=== PATIENT | male | born 1980 | race Caucasian/White ===

== ENCOUNTER → 2018-07-31 | Outpatient (CLI) | payer OTHER ==
--- NOTE | 2018-07-31 17:31 | MR ---
EXAMINATION TYPE: MR brain/lspine wo con DATE OF EXAM: 07/31/2018 COMPARISON: None HISTORY: Numbness CONTRAST: Performed utilizing 0 mL intravenous Gadavist gadolinium contrast. TECHNIQUE: Multiplanar, multiecho imaging on a 3.0 Maddie magnet is performed through the brain. Stud y is performed within 24 hours of arrival to the hospital. The craniovertebral junction is normal. The pituitary is normal. Diffusion-weighted imaging is performed. No abnormal hyperintensity is present to suggest an acute i ntracranial infarct or acute ischemic change. There is a lacunar infarct or Virchow-Dandy space within the inferior right basal ganglion. Ventricles and sulci are slightly prominent for the patient age. There is some mucosal thickening within ethmoid air cells. Some mucosal thickening is within the righ t maxillary sinus. IMPRESSIONS: 1. Mild age-related atrophy EXAMINATION TYPE: MR brain/lspine wo con DATE OF EXAM: 07/31/2018 COMPARISON: 09/29/2016 HISTORY: Numbness, lumbago CONTRAST: 0 mL intravenous Gadavist. TECHNIQUE: Multiplanar, multisequence images of the lumbar spine were acquired. FINDINGS: Cord terminates at the T12-L1 level. L5-S1: Endplate changes are present at S1. This is slightly hyperintense on T2-weighted images sugges tive for Modic type I degenerative change. Disc height is preserved. Mild broad-based left paracentra l disc bulge is present with contact with the exiting nerve root. Correlate with left S1 radicular sy mptoms. L4-L5: No significant disc bulge or disc herniation. No spinal canal stenosis. No foraminal stenosi s. . L3-L4: No significant disc bulge or disc herniation. No spinal canal stenosis. No foraminal stenosi s. Modic type I mild narrowing of disc height may be present. Endplate changes are present. L2-L3: No significant disc bulge or disc herniation. No spinal canal stenosis. No foraminal stenosi s. . L1-L2: No significant disc bulge or disc herniation. No spinal canal stenosis. No foraminal stenosi s. . T12-L1: No significant disc bulge or disc herniation. No spinal canal stenosis. No foraminal stenos is. . IMPRESSION: 1. Chronic endplate changes within the lumbar spine discussed above. 2. Left paracentral disc bulge L5-S1 correlate with left exiting S1 nerve root impingement. Right S1 impingement is not identified at this time.
== END | disposition home or self-care (01) ==
LOC: RADMRIMAIN 14:44
PROVIDERS: ATTEND Psychiatry & Neurology Neurology
DX: M51.27 Other intervertebral disc displacement, lumbosacral region (principal); M47.816 Spondylosis without myelopathy or radiculopathy, lumbar region; G31.1 Senile degeneration of brain, not elsewhere classified; G25.0 Essential tremor
CPT/HCPCS: 70551; 72148

== ENCOUNTER → 2018-12-09 | Outpatient (CLI) | payer OTHER ==
[2018-12-06 14:28] VITALS: BMI 20.7
[2018-12-09 13:04] VITALS: BP 129/84; PULSE 86; RESP 18
--- NOTE | 2018-12-09 13:38 | P.PAINCN ---
History of Present Illness - Reason for Consult Consult date: 12/09/18 - History of Present Illness This is a 38 years off male with a chronic history of severe low back pain, he reported that the pain started more than 10 years ago, and in increased in intensity over time, the pain is constant and increased with any activity, and also patient has some numbness and tingling sensation in his feet, is being treated in the past with [place] and gabapentin, patient reporte that he continue to have pain, he never done any physical therapy or interventional pain management, he denies any fever or night sweats he denies any change in the bowel movement or urination, and he reported that the pain is interfering with his quality of life. Then intensity of the pain 6/10 increased to 10 over 10 with activity Past Medical History Past Medical History: Chest Pain / Angina, Hyperlipidemia, Hypertension Additional Past Medical History / Comment(s): "high liver enzymes",lower back pain, degenerative disk disease,herniated disk, History of Any Multi-Drug Resistant Organisms: None Reported Past Surgical History: Orthopedic Surgery Additional Past Surgical History / Comment(s): rt hand surgery, oral surgery Past Anesthesia/Blood Transfusion Reactions: No Reported Reaction Past Psychological History: Anxiety Smoking Status: Current every day smoker Past Alcohol Use History: Daily Additional Past Alcohol Use History / Comment(s): smokes 1 PPD, started smoking age 19 Past Drug Use History: Marijuana Additional Drug Use History / Comment(s): alcohol abuse - Past Family History Father Family Medical History: Cancer Medications and Allergies Home Medications Medication Instructions Recorded Confirmed Type Atorvastatin Calcium [Lipitor] 10 mg PO DAILY 12/06/18 12/09/18 History Hydrocodone/Acetaminophen [[place] 1 tab PO Q6H PRN 12/06/18 12/09/18 History 10-325] LORazepam [Ativan] 0.5 - 1 mg PO DAILY PRN 12/06/18 12/09/18 History Lisinopril [Zestril] 10 mg PO DAILY 12/06/18 12/09/18 History Multivitamins, Thera [Multivitamin 1 tab PO DAILY 12/06/18 12/09/18 History (formulary)] amLODIPine [Norvasc] 10 mg PO DAILY 12/06/18 12/09/18 History Allergies Allergy/AdvReac Type Severity Reaction Status Date / Time Penicillins Allergy Unknown Verified 12/09/18 12:43 Childhood Physical Exam Vitals: Vital Signs Pulse Resp BP Pulse Ox 12/09/18 12:45 86 18 129/84 97 Intake and Output 12/08/18 12/09/18 12/09/18 22:59 06:59 14:59 Other: Weight 117.934 kg Social history : smoker , ++ ETOH , NO Illegal drugs use . Review of Systems : 1- Constitutional : no chills , no fever , no night sweats , 2- Ears : no ear discharge , no change in hearing 3-Nose, Mouth ,Throat ; no bleeding gums, no sore throat , no epistaxis , 4-Cardiovascular : Denies chest pain, , no orthopnea , no palpitation 5-Respiratory : Denies cough , no dyspnea , no hemoptysis 6-Gastrointestinal :, no change in bowel habits , no coffee- ground emesis . 7-Genitourinary : No hematuria , no discharge , no incontinence, 8-Musculoskeletal : No gait dysfunction , report low back pain , and lower extremity numbness , 9- Neurological : no ataxia , no tremor , no sezure , 10-Psychatric , no suicidal ideation no hallucination 11- Endocrine : no cold intolerence , no polyuria , no polydypsia , 12-Hematologic : no easy bleeding , no easy brusing , 13-Allergic / immunology : no angioedema , no wheezing ,no allergic rhinitis 14-Integumentary : no brttle nails , no change hair / nails , no foot/leg ulcers . Physical Examinations : 1-Constitutional : Cooperative , not in acute distress . 2-HEENT : nech ; supple , no Lymphadenopathy , no Thyromegaly , :eyes , no icterus, no photophobia . ENT : , normal oropharynx , no Thrush 3- Respiratory : Chest clear to auscultations Bilaterally , no wheezing . 4- Cardiovascular : regular rate and rhythem , S1 , S2 , no S3 , no S4. 5- Gastrointestinal: abdomen soft no tenderness , no organomegally . 6- Genitourinary : Defferred . 7-Integumentary : No cellulitis , no ulcers , normal skin turgor , no cyanotic . 8- neurologic : Cranial nerve II to XII intact , no focal neurological deffecit 9-psychatric : alert , oriented X 3 , appropriate affect , intact judgment and insight . 10-Lymphatic : no Lymphadenopathy. 11- musculoskeltal: normal gait Lumber spine moter stegnth lower extremities ,thigh and legs 5/5 Right side , 5/5 Left side deep tendon reflexes : normal Knee Jerk , normal ankle Jerk positive lumber facet Loading Test Range of motion of the lumbar spine Flexion 30 degrees, extension 10 degrees strait leg raising test , positive at 30 degree Fabere test positive RT and positive LT . Severe tenderness over the sacroiliac joint on the right side, and on the left side Gaenslen test= positive bilaterally Seated flexion test= positive bilaterally Results Comments: MRI of the lumbar spine done 2016 at the [facility]= L5-S1 lumbar degenerative disc disease and L4 5 lumbar degenerative disc disease Assessment and Plan Plan: Assessment and plan= 1-low back pain secondary to lumbar herniated disc disease. 2-clinical findings of lumbar spondylosis with lumbar facet arthropathy. Patient could benefit from lumbar epidural steroid injection at the L5-S1 level, into the procedure twice, if patient continued to have Pain after lumbar epidural steroid injection and we will order MRI of the lumbar spine, Patient should continue to use his pain medication, is getting prescription refills from his primary care We'll order CBC and PT/INR before the procedure because patient and the history of ETOH use Time with Patient: Greater than 30 PQRS Measure Charge Sheet Measure #130: Documentation of Current Meds in Medical Chart: Patient's medications documented in chart Measure #226: Tobacco Use: Screen & Cessation Intervention: Pt screened for tobacco use AND intervention given Measure #111: Pneumonia Vaccination: Pneumococcal vaccine NOT administered or previously given Measure #47: Advance Care Plan: Advance care planning discussed & documented, pt chose/unable to give Measure #412: Opioid Treatment Agreement: No documentation of signed opioid treatment agreement Measure #408: Opioid Therapy Follow-up Evaluation: Patient had NO f/u eval minimum every 3 months during opioid therapy Measure #317: Preventitive Care & Scrn High Bld Press & F/U: Normal blood pressure, f/u not required Measure #128: Body Mass Index (BMI) Screening & Follow-up: BMI documented ABOVE normal parameters - f/u documented Measure #131: Pain Assessment & Follow-up: Pain positive & plan documented, Follow-up scheduled Measure #431: Unhealthy Alcohol Use Preventative Care & Scrn: Patient identified as unhealthy alcohol user; counseling given PQRS Narrative: Smoking Status Current every day smoker Do You Want the Pneumonia No Vaccine AT THIS TIME? Blood Pressure 129/84 Pain Intensity [Lower Back] 7 Hx Alcohol Use (MH) Yes Home Medications: Ambulatory Orders Atorvastatin Calcium [Lipitor] 10 mg PO DAILY 12/06/18 Hydrocodone/Acetaminophen [[place] 10-325] 1 tab PO Q6H PRN 12/06/18 LORazepam [Ativan] 0.5 - 1 mg PO DAILY PRN 12/06/18 Lisinopril [Zestril] 10 mg PO DAILY 12/06/18 Multivitamins, Thera [Multivitamin (formulary)] 1 tab PO DAILY 12/06/18 amLODIPine [Norvasc] 10 mg PO DAILY 12/06/18
== END | disposition home or self-care (01) ==
LOC: PNWHC3 12:28
PROVIDERS: ATTEND Specialist
DX: G89.29 Other chronic pain (principal); M51.26 Other intervertebral disc displacement, lumbar region; M47.816 Spondylosis without myelopathy or radiculopathy, lumbar region; M46.96 Unspecified inflammatory spondylopathy, lumbar region; E78.5 Hyperlipidemia, unspecified; I10 Essential (primary) hypertension; F17.210 Nicotine dependence, cigarettes, uncomplicated; Z79.899 Other long term (current) drug therapy
CPT/HCPCS: 99211

== ENCOUNTER → 2019-11-10 | Outpatient (CLI) | payer OTHER ==
--- NOTE | 2019-11-10 10:19 | US ---
LOWER EXTREMITY VENOUS INSUFFICIENCY CLINICAL HISTORY: I87.2 Venous insufficiency (chronic) (peripheral). SIDE PERFORMED: Bilateral 1) Color flow is present and patency is documented in the following vessels. No DVT or SVT is noted . EIV Common Femoral Vein Deep Femoral Vein Femoral Vein Popliteal Vein Proximal Calf Veins Greater Saph Vein Upper Small Saph Vein 2) There is venous reflux noted at the following venous levels: Right: GSV CFV junction Left: EIV, CFV IMPRESSION: No sonographic evidence of deep venous thrombosis nor superficial venous thrombosis of th e bilateral lower extremities. Bilateral venous reflux as detailed above.
== END | disposition home or self-care (01) ==
LOC: MERGE 08:59 → RADUSWWP 08:59 → EDSEX 09:00
PROVIDERS: ATTEND Family Medicine
DX: I87.8 Other specified disorders of veins (principal); I87.2 Venous insufficiency (chronic) (peripheral); Z88.5 Allergy status to narcotic agent
CPT/HCPCS: 93970

== ENCOUNTER → 2019-11-11 | Outpatient (CLI) | payer OTHER ==
--- NOTE | 2019-11-11 18:57 | MR ---
EXAMINATION TYPE: MR lumbar spine wo con DATE OF EXAM: 11/11/2019 COMPARISON: MRI lumbar spine September 29, 2016 HISTORY: LBP, BLE radic TECHNIQUE: Multiplanar, multisequence imaging of the lumbar spine is performed without IV contrast. FINDINGS: Sagittal images of the lumbar spine show vertebral body heights and alignment to remain sat isfactory. Multilevel disc desiccation is identified L2-L3 through the L5-S1 levels. Moderate disc sp jumana narrowing L3-L4 level with anterior spurring and heterogeneous bony uptake to endplate changes ag ain seen. Mild disc space narrowing at additional lumbar levels. Findings new at L2-L3 level from carlos or MRI. The conus medullaris remains stable in position and signal ending inferior T12 level. Additio nal mild multilevel anterior spurring is noted. Axial images show at T12-L1 and L1-L2 levels to remain within normal limits. Axial images at L2-L3 level show new mild to moderate broad disc bulge mildly effacing the anterior t hecal sac and causing mild bilaterally anterior inferior neural foraminal narrowing. Axial images at L3-L4 level shows moderate broad disc bulge with right paracentral disc protrusion co mponent effacing anterior thecal sac and mild facet degenerative changes bilaterally. There is mild r ight-sided anterior inferior neural foraminal narrowing. There is new 5 mm right Tarlov cyst axial im age 14 causing some mass effect posterolateral aspect spinal canal. Axial images at L4-L5 level mild facet degenerative changes bilaterally with mild broad disc bulge mi nimally effacing anterior thecal sac. There is mild bilateral inferior neural foraminal narrowing. No significant change from prior. Axial images at L5-S1 level show moderate broad disc bulge and mild facet degenerative changes bilate rally. There is left lateral disc protrusion component with asymmetric mild left-sided inferior neura l foraminal narrowing redemonstrated. Right-sided neural foramen is patent. Mass effect on central S1 nerves not identified on this or prior study. No suspicious incidental retroperitoneal findings. IMPRESSION: Multilevel degenerative changes in the mid to lower lumbar spine as detailed above with s ome progression L3-L4 level and new findings noted L2-L3 level.
== END | disposition home or self-care (01) ==
LOC: EDSEX → MERGE 16:15 → RADMRIMAIN 16:19
PROVIDERS: ATTEND Psychiatry & Neurology Neurology
DX: M47.816 Spondylosis without myelopathy or radiculopathy, lumbar region (principal); Z88.0 Allergy status to penicillin
CPT/HCPCS: 72148

== ENCOUNTER 2020-04-28 13:13 | Emergency (ER) | payer OTHER ==
[2020-04-28 14:11] VITALS: RESP 18; TEMP 97.7
[2020-04-28] MEDS ORDERED: HYDROcodone/APAP 5-325MG 1 EACH TAB PO STA (14:51)
--- NOTE | 2020-04-28 15:26 | ED ---
General Adult HPI - General Chief complaint: Extremity Injury, Upper Stated complaint: rt arm injury Time Seen by Provider: 04/28/20 14:26 Source: patient, RN notes reviewed, old records reviewed Mode of arrival: ambulatory Limitations: no limitations - History of Present Illness Initial comments: 39-year-old male patient presents ED for chief complaint of right hand and wrist pain. Patient was the last night he was walking up the stairs when he tripped and fell forward with a fall on outstretched arm. Patient process since then he has been complaining of pain on the radial aspect of the distal wrist and the mid palm the hand. He denies any trauma to his head or his neck. He denies any other complaints at this time. Systemic: Pt denies fatigue, fever/chills, rash. Pt denies weakness, night sweats, weight loss. Neuro: Pt denies headache, visual disturbances, syncope or pre-syncope. HEENT: Pt denies ocular discharge or irritation, otalgia, rhinorrhea, pharyngitis or notable lymphadenopathy. Cardiopulmonary: Pt denies chest pain, SOB, heart palpitations, dyspnea on exertion. Abdominal/GI: Pt denies abdominal pain, n/v/d. : Pt denies dysuria, burning w/ urination, frequency/urgency. Denies new onset urinary or bowel incontinence. Neuro: Pt denies new onset weakness, paresthesias. - Related Data Home Medications Medication Instructions Recorded Confirmed Atorvastatin Calcium [Lipitor] 10 mg PO DAILY 12/06/18 04/28/20 Hydrocodone/Acetaminophen [[place] 1 tab PO TID PRN 12/06/18 04/28/20 10-325] Multivitamins, Thera [Multivitamin 1 tab PO DAILY 12/06/18 04/28/20 (formulary)] Gabapentin [Neurontin] 300 mg PO TID 04/28/20 04/28/20 Hydrochlorothiazide 25 mg PO DAILY 04/28/20 04/28/20 Lisinopril 20 mg PO DAILY 04/28/20 04/28/20 amLODIPine [Norvasc] 5 mg PO DAILY 04/28/20 04/28/20 Allergies Allergy/AdvReac Type Severity Reaction Status Date / Time Penicillins Allergy Unknown Verified 04/28/20 14:12 Childhood Review of Systems ROS Statement: Those systems with pertinent positive or pertinent negative responses have been documented in the HPI. ROS Other: All systems not noted in ROS Statement are negative. Past Medical History Past Medical History: Chest Pain / Angina, Hyperlipidemia, Hypertension Additional Past Medical History / Comment(s): "high liver enzymes",lower back pain, degenerative disk disease,herniated disk, History of Any Multi-Drug Resistant Organisms: None Reported Past Surgical History: Orthopedic Surgery Additional Past Surgical History / Comment(s): rt hand surgery, oral surgery Past Anesthesia/Blood Transfusion Reactions: No Reported Reaction Past Psychological History: Anxiety Smoking Status: Current every day smoker Past Alcohol Use History: Daily Past Drug Use History: Marijuana - Past Family History Father Family Medical History: Cancer General Exam - General Exam Comments Initial Comments: Constitutional: NAD, AOX3, Pt has pleasant affect. HEENT: NC/AT, trachea midline, neck supple, no lymphadenopathy. Posterior pharynx non erythematous, without exudates. External ears appear normal, without discharge. Mucous membranes moist. Eyes PERRLA, EOM intact. There is no scleral icterus. No pallor noted. Cardiopulmonary: RRR, no murmurs, rubs or gallops, no JVD noted. Lungs CTAB in anterior and posterior bush. No peripheral edema. Abdominal exam: Abdomen soft and non-distended. Abdomen non-tender to palpation in all 4 quadrants. Bowel sounds active in LLQ. No hepatosplenomegaly. No ecchymosis Neuro: CN II-XII grossly intact. No nuchal rigidity. No raccon eyes, no mcihele sign, no hemotympanum. No cervical spinal tenderness. MSK: Distal right wrist mildly tender to palpation. Snuffbox tenderness is present. Mild amount of tenderness to the middle of the palm as well. Neurovascularly intact. No external skin changes. Her motion is intact of hand. Sensation intact. Limitations: no limitations Course Vital Signs 04/28/20 14:09 Temperature 97.7 F Pulse Rate 77 Respiratory 18 Rate Blood Pressure 139/86 O2 Sat by Pulse 97 Oximetry Medical Decision Making - Medical Decision Making 39-year-old male patient with a chief complaint of right wrist sprain after fall on outstretched arm yesterday. Complaining of pain in the distal wrist region as well as the hand. Patient vital signs are stable, afebrile. Physical exam doesn't display tenderness to the distal radius region snuffbox region palm region. Plain films are negative for acute process. Patient neurovascularly intact. Patient placed in thumb spica splint will be discharged palpation orthopedic follow-up. Neurovascular intact after splint placement. Case discus sed with Dr. Burnham. Disposition Clinical Impression: Wrist sprain Disposition: HOME SELF-CARE Condition: Stable Instructions (If sedation given, give patient instructions): Wrist Sprain (ED) Additional Instructions: Follow-up with primary care provider and orthopedic consult tomorrow. Continue to wear splint. Return to ER if condition worsens in any way. Is patient prescribed a controlled substance at d/c from ED?: No Referrals: Angel Jaimes Jr, DO [Primary Care Provider] - 1-2 days Tate Martel MD [STAFF PHYSICIAN] - 1-2 days
--- NOTE | 2020-04-28 15:46 | XR ---
EXAMINATION TYPE: XR wrist complete RT, XR hand complete RT DATE OF EXAM: 04/28/2020 CLINICAL HISTORY: pain TECHNIQUE: Frontal, lateral and oblique images of the right wrist are obtained. COMPARISON: None. FINDINGS: There is no acute fracture/dislocation evident. The joint spaces appear within normal limits. The o verlying soft tissue appears unremarkable. IMPRESSION: There is no acute fracture or dislocation seen. ICD 10 NO FRACTURE, INITIAL EVALUATION EXAMINATION TYPE: XR wrist complete RT, XR hand complete RT DATE OF EXAM: 04/28/2020 CLINICAL HISTORY: pain TECHNIQUE: Frontal, lateral and oblique images of the right hand are obtained. COMPARISON: None. FINDINGS: There is no acute fracture/dislocation evident. The joint spaces appear within normal limi ts. The overlying soft tissue appears unremarkable. IMPRESSION: There is no acute fracture or dislocation ICD 10 NO FRACTURE, INITIAL EVALUATION
[2020-04-28] MEDS ORDERED: ACET/COD 300 MG/30 MG STARTER PACK 6 TAB BTL PO STA (16:26)
--- NOTE | 2020-04-28 16:27 | ED ---
Disposition Clinical Impression: Wrist sprain Disposition: HOME SELF-CARE Condition: Stable Instructions (If sedation given, give patient instructions): Wrist Sprain (ED) Additional Instructions: Follow-up with primary care provider and orthopedic consult tomorrow. Continue to wear splint. Return to ER if condition worsens in any way. Is patient prescribed a controlled substance at d/c from ED?: No Referrals: Angel Jaimes Jr, DO [Primary Care Provider] - 1-2 days Tate Martel MD [STAFF PHYSICIAN] - 1-2 days Procedures - Orthopedic Splinting/Casting Injury #1 Side: right Upper Extremity Injury Location: short arm Upper Extremity Immobilizer: thumb spica
[2020-04-28 16:46] VITALS: BP 130/78; PULSE 70
== END 2020-04-28 16:45 | disposition home or self-care (01) ==
LOC: EC 13:13
DX: S63.501A Unspecified sprain of right wrist, initial encounter (principal); F17.200 Nicotine dependence, unspecified, uncomplicated; E78.5 Hyperlipidemia, unspecified; I10 Essential (primary) hypertension; I25.2 Old myocardial infarction; Z88.0 Allergy status to penicillin; Z79.899 Other long term (current) drug therapy; Z98.890 Other specified postprocedural states; W01.0XXA Fall on same level from slipping, tripping and stumbling without subsequent striking against object, initial encounter; Y93.01 Activity, walking, marching and hiking; Y92.89 Other specified places as the place of occurrence of the external cause
CPT/HCPCS: 29125; 99284

== ENCOUNTER → 2020-06-01 | Outpatient (CLI) | payer OTHER ==
--- NOTE | 2020-06-01 12:55 | US ---
EXAMINATION TYPE: US mass soft tissue chest/back DATE OF EXAM: 06/01/2020 COMPARISON: NONE CLINICAL HISTORY: R22.2 lump/mas Localized. Right upper chest palpable noted 3 weeks ago, but not pal pable now. US findings: at right chest wall 2:00 zone BC in reference to breast approximately 12 CFN a lymph nod e appearing mass is noted = 0.8 x 0.6 x 0.3cm. IMPRESSION: Soft tissue lesion at the site of clinical concern appears to reflect a lymph node. Relat e clinically.
== END ==
LOC: RADUSWWP 12:18
PROVIDERS: ATTEND Family Medicine
DX: R22.2 Localized swelling, mass and lump, trunk (principal); Z88.0 Allergy status to penicillin

== ENCOUNTER 2020-11-16 17:09 | Inpatient (IN) | payer MEDICAID, OTHER ==
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
[2020-11-16] MEDS ORDERED: MAGNESIUM HYDROXIDE 2,400 MG/10 ML CUP PO PRN (21:47)
[2020-11-16] MEDS ORDERED: MAG HYDROX/AL HYDROX/SIMETH 30 ML CUP PO PRN (21:47)
[2020-11-16] MEDS ORDERED: HALOPERIDOL LACTATE 5 MG/ML 1 ML VIAL IM PRN (21:49)
[2020-11-17] MEDS ORDERED: LORazepam 2 MG/ML INJ IM PRN (00:52)
[2020-11-17] MEDS: NICOTINE 14MG/24HR PATCH TRANSDERM SCH ×2 (01:32→11:54)
[2020-11-17] MEDS ORDERED: MELATONIN 3 MG TABLET PO PRN (11:34)
--- NOTE | 2020-11-17 11:45 | P.HP ---
Psychiatric H&P - . H&P Date: 11/17/20 History & Physical: Allergies Allergy/AdvReac Type Severity Reaction Status Date / Time Penicillins Allergy Unknown Verified 11/16/20 20:27 Childhood Vital Signs Temp 97.4 F L 11/16/20 22:47 Pulse 76 11/16/20 22:47 Resp 18 11/16/20 22:47 BP 148/90 11/16/20 22:47 Pulse Ox 98 11/16/20 21:40 Intake & Output 11/16/20 11/17/20 11/17/20 18:59 06:59 18:59 Weight 113.398 kg 104.326 kg Laboratory Last Values Coronavirus (PCR) Not Detected (Not Detectd) 11/16/20 20:46 11/17/20 11:35 IDENTIFYING DATA: Patient is a 40-year-old male who currently lives alone in a house has 1 son and collects Social Security disability. HPI: Patient presented to the hospital yesterday with complaints of paranoia as people were apparently following him as he believed. Patient reported that he uses methamphetamine regularly. As per ER report claims that patient apparently had taken and asked to his wall and owns guns at his home. Patient was fairly uncooperative and agitated last night and received IM Haldol and Ativan for his agitation. Patient was seen this morning and appeared to be disheveled in appearance of poor hygiene and grooming and appeared to be fairly sedated. He states that he is feeling upset that he is on the unit and was demanding discharge several times. He was fairly vague and uncooperative and irritable with com writer. He states that "I've been using a lot of drugs" and reported drinking alcohol approximately 1-2 beers a day and also using methamphetamine approximately a gram every other day. He states that he's been using methamph etamine for approximately 1 year now. He states that he was brought into the hospital by his mother for concerns about his paranoia and when describing about the acts in the wall he states that "I thought my phone was in there". He states that his mood is "alright" however has an incongruent affect and was fairly irritable. He denies any anxiety. He states that he has poor sleep. He has poor insight and judgment and is impulsive. Patient denies any suicidal or homicidal ideations intent or plan. At this time patient denies any auditory or visual hallucinations. Patient admits to using methamphetamine and alcohol as listed above. He admits to cigarette use daily. PAST PSYCHIATRIC HISTORY: Patient states that he has no psychiatric history. Patient denies being on any psychiatric medications. Patient denies any previous psychiatric hospitalizations. Patient denies any psychiatric outpatient follow- up. Patient denies any history of suicide attempts in the past. PMH: Angina, hyperlipidemia, hypertension and degenerative joint disease. ALLERGIES: as per EMR CHEMICAL DEPENDENCY HISTORY: as per HPI FAMILY PSYCHIATRIC/SUBSTANCE USE HISTORY: denies SOCIAL HISTORY: Patient was born and raised in [facility]. He states that he completed high school. He states that he lives alone in a house has 1 son and collects Social Security disability. 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 He states that he has been to intermediate once in 2009 for drinking and driving.. MENTAL STATUS EXAM: General Appearance: Patient appears to be overweight, stated age is alert, im pulsive and uncooperative. Patient appears to have poor hygiene and grooming. Disheveled appearance. Behavior: Patient is seated without any agitated behavior. Impulsive and uncooperative. Speech: Patient's speech is fluent and nonpressured. Loud at times Mood/Affect: Patient reports their mood is "okay", affect is incongruent and constricted. Suicidality/Homicidality: Patient denies having any homicidal ideation intent or plan. Denies any suicidal ideations intent or plan Perceptions: Patient denies any visual hallucinations and denies any auditory hallucinations Though content/process: Vague, guarded/evasive, poverty of content. Endorsing paranoia. Memory and concentration: AOX3, grossly intact for the purposes of this session. Can spell "WORLD" backwards Judgment and insight: poor/impulsive STRENGTHS/WEAKNESSES: strength is that patient is resilient. 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 Patient has signed adult voluntary form and medication consent and is placed in patient's chart. -Medications : Will start patient on Seroquel 50 mg daily at bedtime for mood stabilization/psychosis. Vistaril when necessary for anxiety. Melatonin when necessary for insomnia. -Ativan and Haldol PRN for agitation/aggression -CIWA protocol with Ativan PRN for ETOH withdrawal -Patient was counseled on substance abuse however he states that at this time "I can quit whenever I want to" and is not interested in rehab or any other treatment options for his substance use issues. -Patient was informed of the risks, benefits and side effects of the medication and patient verbally consented to taking the medications. Patient signed med consent form and was placed in chart. -Internal Medicine consult to perform medical evaluation and physical. -NRT - nicotine patch -SW on board for discharge planning. Encourage patient to participate in groups to work on coping skills. Patient claims that he is not interested in rehab at this time. Patient apparently does have access to guns in his home and these will need to be secured upon discharge.
[2020-11-17] MEDS: ATORVASTATIN 10 MG TAB PO SCH (11:54)
[2020-11-17] MEDS: LORazepam 1 MG TAB PO PRN (11:54)
[2020-11-17] MEDS: hydrOXYzine pamoate 25 MG CAP PO PRN (11:54)
[2020-11-17] MEDS: MULTIVITAMINS, THERA 1 EACH TAB PO SCH (11:54)
[2020-11-17] MEDS: amLODIPine 5 MG TAB PO SCH (11:54)
[2020-11-17] MEDS: GABAPENTIN 300 MG CAP PO PRN (11:54)
[2020-11-17] MEDS: ACETAMINOPHEN TAB 325 MG TAB PO PRN (11:54)
[2020-11-17] MEDS: hydroCHLOROthiazide 25 MG TAB PO SCH (11:54)
[2020-11-17] MEDS: QUEtiapine 50 MG TAB PO SCH (23:02)
[2020-11-18] MEDS: ATORVASTATIN 10 MG TAB PO SCH (09:27)
[2020-11-18] MEDS: NICOTINE 14MG/24HR PATCH TRANSDERM SCH (09:27)
[2020-11-18] MEDS: MULTIVITAMINS, THERA 1 EACH TAB PO SCH (09:27)
[2020-11-18] MEDS: GABAPENTIN 300 MG CAP PO PRN ×2 (09:28→21:07)
[2020-11-18] MEDS: ACETAMINOPHEN TAB 325 MG TAB PO PRN ×3 (09:28→21:07)
[2020-11-18] MEDS: hydroCHLOROthiazide 25 MG TAB PO SCH (09:39)
[2020-11-18] MEDS: amLODIPine 5 MG TAB PO SCH (09:39)
--- NOTE | 2020-11-18 10:04 | P.PN ---
Progress Note - Text Progress Note Date: 11/18/20 Interval History: Patient was seen lying down is that this morning and was directable and agreea ble to speak with physician underwriter in the office. Patient appeared to be superficially cooperative with physician underwriter however appears to be somewhat tired this morning. He continues to be focused on discharge and have poor insight and judgment. He states that yesterday "they almost gave me a shot because I was being mean". He was fairly irritable today again with physician underwriter. He noted that he did not take the Seroquel last night as he fell asleep. He claims that his mood is "fine" and has an incongruent and constricted affect. He denies any anxiety today. States that he has not gone any groups. He continues to display poor motivation and insight. At this time patient denies any suicidal or homical ideations, intent or plan. Patient denies any auditory, visual hallucinations and denies any paranoia or delusions. He claims that the paranoia has been improving mildly. Mental Status Exam: General Appearance: Patient appears to be overweight, stated age is alert, impulsive , superficially cooperative. Patient appears to have poor hygiene and grooming. Disheveled appearance. Behavior: Patient is seated without any agitated behavior. Superficially cooperative and irritable at times. Speech: Patient's speech is fluent and nonpressured. Mood/Affect: Patient reports their mood is "ok", affect is incongruent and constricted. Suicidality/Homicidality: Patient denies having any homicidal ideation intent or plan. Denies any suicidal ideations intent or plan Perceptions: Patient denies any visual hallucinations and denies any auditory hallucinations Though content/process: Vague, guarded/evasive, poverty of content. Paranoia improving. Focused on discharge Memory and concentration: AOX3, grossly intact for the purposes of this session. 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 Patient has signed adult voluntary form and medication consent and was placed in patient's chart. -Medications: Continue with Seroquel 50 mg daily at bedtime for mood stabilization/psychosis. Vistaril when necessary for anxiety. Melatonin when necessary for insomnia. -When necessary Ativan and Haldol for agitation/aggression. -Due to patient's hypotension, encourage increasing fluids and also howled blood pressure medication. -NRT - nicotine patch -SW on board for discharge planning. Encouraged the patient to participate in milieu. Patient continues to claim that he is not interested in rehab at this time. Patient apparently does have access to guns in his home and these will need to be secured upon discharge. Likely discharge in 1-2 days if patient is taking his medications.
[2020-11-18] MEDS: PANTOPRAZOLE 40 MG TABLET PO SCH (13:23)
[2020-11-18] MEDS: hydrOXYzine pamoate 25 MG CAP PO PRN (13:26)
--- NOTE | 2020-11-18 13:36 | P.CONS ---
History of Present Illness - Reason for Consult Consult date: 11/18/20 Medical management hypertension, hyperlipidemia, polysubstance abuse Requesting physician: Wolf Hudson - Chief Complaint Methamphetamine abuse, hallucinations, suicidal ideation - History of Present Illness This is a 40-year-old gentleman with past medical history of angina, hyperlipidemia, hypertension, chronic back pain, anxiety, polysubstance abuse; nicotine dependence marijuana, methamphetamine and daily alcohol abuse, presented to the ER with his mom with reported paranoia, ongoing methamphetamine abuse and multiple other medical issues. 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 Reports he recently received disability secondary to chronic back pain .Denies having violent outbreaks's, states he just gets angry. Patient apparently took an ax to the wall. Patient reported he felt people were following him, dreamed someone was hurting someone he loves, was afraid of becoming suicidal, did not want to hurt anyone and voluntarily signed himself in for inpatient psychiatric admission. Reports his mother is his only support system. Denies chest pain, palpitations or shortness of breath. Denies lightheadedness, dizziness or focal deficits. Denies any auditory or visual hallucinations. Denies suicidal or homicidal plans. On admission vital signs stable, maintaining O2 sats in the high 90s on room air. Earlier this morning patient had an isolated hypotension episode, Norvasc and HCTZ held, encouraged to increase fluid intake. Follow-up blood pressure stable, 122/62. Coronavirus not detected. Majority of information obtained from staff, chart as patient currently reserved. Toxicology screen currently not available. Review of Systems ROS Statement: Those systems with pertinent positive or pertinent negative responses have been documented in the HPI. ROS Other: All systems not noted in ROS Statement are negative. Past Medical History Past Medical History: Chest Pain / Angina, Hyperlipidemia, Hypertension Additional Past Medical History / Comment(s): "high liver enzymes",lower back pain, degenerative disk disease,herniated disk, History of Any Multi-Drug Resistant Organisms: None Reported Past Surgical History: Orthopedic Surgery Additional Past Surgical History / Comment(s): rt hand surgery, oral surgery Past Anesthesia/Blood Transfusion Reactions: No Reported Reaction Past Psychological History: Anxiety Smoking Status: Current every day smoker Past Alcohol Use History: Daily Past Drug Use History: Marijuana, Methamphetamine - Past Family History Father Family Medical History: Cancer Medications and Allergies Home Medications Medication Instructions Recorded Confirmed Type Atorvastatin Calcium [Lipitor] 10 mg PO DAILY 12/06/18 11/16/20 History Hydrocodone/Acetaminophen [[place] 1 tab PO TID PRN 12/06/18 11/16/20 History 10-325] Multivitamins, Thera [Multivitamin 1 tab PO DAILY 12/06/18 11/16/20 History (formulary)] Gabapentin [Neurontin] 300 mg PO TID PRN 04/28/20 11/16/20 History amLODIPine [Norvasc] 5 mg PO DAILY 04/28/20 11/16/20 History hydroCHLOROthiazide 25 mg PO DAILY 04/28/20 11/16/20 History Allergies Allergy/AdvReac Type Severity Reaction Status Date / Time Penicillins Allergy Unknown Verified 11/16/20 20:27 Childhood Physical Exam Vitals: Vital Signs Temp Pulse BP 11/18/20 11:01 98.2 F 11/18/20 10:09 82 122/62 11/18/20 09:25 116 H 77/51 11/17/20 18:22 98.4 F 11/17/20 12:58 97.9 F PHYSICAL EXAM: VITAL SIGNS: As above GENERAL: Sitting up in chair, no acute distress, no agitation, reserved, vague HEENT: Conjunctivae normal. eyes normal. NECK: No JVD. No thyroid enlargement. No LNs CARDIOVASCULAR: S1, S2 regular. No murmur RESPIRATION: Breath sounds diminished in the bases. No rhonchi or crackles. No bronchial breathing. ABDOMEN: Soft, nontender . No guarding. no masses palpable. No ascites, No hepatosplenomegaly.Bowel sounds heard. LEGS: No edema. no swelling PSYCHIATRY: Alert and oriented X3, mood and affect normal. NERVOUS SYSTEM: Cranial N 2-12 grossly normal. Moves all 4 limbs. No focal deficits. Strength and sensation grossly intact.. Skin: Warm and dry no rash Lymphatic system. No LN neck axilla. Assessment and Plan Assessment: Psychosis suspect related to polysubstance abuse Polysubstance abuse including nicotine dependence, marijuana, methamphetamine and alcohol abuse Degenerative disc disease with chronic back pain Hypertension HyperLipidemia Anxiety Obesity, BMI 30.3 Plan: Continue on current medication regime ,monitoring and symptomatic treatment. Hold Norvasc, hydrochlorothiazide- apparently had a hypotensive episode earlier this morning with recheck reporting systolic 120s. Protonix for GI prophylaxis added. Maintain CIWA protocol. Nicotine patch. Labs ordered. Social work consult in place regarding substance abuse, potential rehab treatment at discharge. Thank you for the consult, Dr. Hudson. The impression and plan of care has been dictated as directed. : I performed a history and examination of this patient, discussed the same with the dictator. I agree with the dictator's note ,documented as a scribe. Any additional findings or plans will be noted.
[2020-11-18] MEDS: QUEtiapine 50 MG TAB PO SCH (21:06)
[2020-11-18] MEDS: LORazepam 1 MG TAB PO PRN (21:07)
[2020-11-19 07:56] LABS: Basophils % (A) 1 %; Eosinophils # (A) 0.1 k/uL (0-0.7); Eosinophils % (A) 1 %; HCT 43.4 % (39.0-53.0); HGB 14.7 gm/dL (13.0-17.5); Lymphocytes # (A) 1.9 k/uL (1.0-4.8); Lymphocytes % (A) 29 %; MCH 32.6 pg (25.0-35.0); MCHC 33.8 g/dL (31.0-37.0); MCV 96.4 fL (80.0-100.0); Mean Platelet Volume 7.7; Monocytes # (A) 0.5 k/uL (0-1.0); Monocytes % (A) 8 %; Neutrophils % (A) 59 %; Platelet Count 143 k/uL (150-450); RDW 11.9 % (11.5-15.5); WBC 6.8 k/uL (3.8-10.6)
[2020-11-19 08:22] LABS: African American GFR (CKD) >90 (>60 ml/min/1.73 sqM); Anion Gap 5 mmol/L; Blood Urea Nitrogen 12 mg/dL (9-20); Calcium 9.1 mg/dL (8.4-10.2); Carbon Dioxide 28 mmol/L (22-30); Chloride 105 mmol/L (98-107); Glucose 111 mg/dL (74-99); Magnesium 1.8 mg/dL (1.6-2.3); Non-African American GFR(CKD) >90 (>60 ml/min/1.73 sqM); Potassium 3.4 mmol/L (3.5-5.1); Sodium 138 mmol/L (137-145)
[2020-11-19] MEDS: MULTIVITAMINS, THERA 1 EACH TAB PO SCH (08:34)
[2020-11-19] MEDS: PANTOPRAZOLE 40 MG TABLET PO SCH (08:34)
[2020-11-19] MEDS: ATORVASTATIN 10 MG TAB PO SCH (08:34)
[2020-11-19] MEDS: NICOTINE 14MG/24HR PATCH TRANSDERM SCH (08:35)
[2020-11-19] MEDS: DULoxetine HCL 30 MG CAPSULE.DR PO SCH (10:10)
[2020-11-19] MEDS ORDERED: POTASSIUM CHLORIDE ER 20 MEQ TAB.ER PO STA (12:41)
[2020-11-19] MEDS: HYDROcodone/APAP 7.5-325MG 1 EACH TAB PO PRN (15:57)
[2020-11-19] MEDS: GABAPENTIN 300 MG CAP PO PRN (15:57)
[2020-11-19] MEDS: LORazepam 1 MG TAB PO PRN (16:00)
[2020-11-19] MEDS: QUEtiapine 50 MG TAB PO SCH (20:33)
[2020-11-19] MEDS: MELATONIN 5 MG TABLET PO SCH (20:33)
[2020-11-19] MEDS: hydrOXYzine pamoate 25 MG CAP PO PRN (20:34)
[2020-11-19] MEDS ORDERED: QUEtiapine 100 MG TAB PO SCH (21:00)
[2020-11-20] MEDS: PANTOPRAZOLE 40 MG TABLET PO SCH (08:06)
[2020-11-20] MEDS: ATORVASTATIN 10 MG TAB PO SCH (08:06)
[2020-11-20] MEDS: MULTIVITAMINS, THERA 1 EACH TAB PO SCH (08:06)
[2020-11-20] MEDS: DULoxetine HCL 30 MG CAPSULE.DR PO SCH (08:06)
[2020-11-20] MEDS: NICOTINE 14MG/24HR PATCH TRANSDERM SCH (08:06)
[2020-11-20 08:52] LABS: Potassium 4.5 mmol/L (3.5-5.1)
[2020-11-20 08:53] LABS: African American GFR (CKD) >90 (>60 ml/min/1.73 sqM); Anion Gap 3 mmol/L; Blood Urea Nitrogen 12 mg/dL (9-20); Calcium 9.2 mg/dL (8.4-10.2); Carbon Dioxide 29 mmol/L (22-30); Chloride 108 mmol/L (98-107); Glucose 108 mg/dL (74-99); Non-African American GFR(CKD) >90 (>60 ml/min/1.73 sqM); Sodium 140 mmol/L (137-145)
[2020-11-20] MEDS: HYDROcodone/APAP 7.5-325MG 1 EACH TAB PO PRN ×2 (12:33→20:38)
--- NOTE | 2020-11-20 15:03 | P.PN ---
Progress Note - Text Progress Note Date: 11/20/20 Clinical Problems: Methamphetamine use disorder unspecified, methamphetamine induced psychotic disorder, alcohol use disorder moderate, tobacco use Interim history: I reviewed the medical record and interviewed the patient. He obsessed about discharge and minimize the circumstances that led to this hospitalization. He admitted that he was using methamphetamine but denied that his methamphetamine use is a problem or contributed to this admission. He denied that he was "psychotic" and tried to explain his presentation as a misunderstanding. She talked about playing a video game that has a currency that can be converted to real money. Somebody was "siphoning" his money. He also talked about some people threatening to turn them into the police if he doesn't give him his money. He denied feeling depressed or having thoughts of or suicide. He denied feeling frightened or scared. He denied auditory, visual or olfactory hallucinations. He denied ideas of reference, thought insertion, thought broadcasting or thought control. Intermittently attends therapeutic groups and activities. He slept 8 hours last night. Mental status exam: He presented as a disheveled-appearing 40-year-old male who is irritable but cooperative. He made eye contact and appeared to attend to interview. He had a distressed facial expression. He showed psychomotor retardation but no abnormal movements. Her speech was spontaneous with normal rate and rhythm. His affect was irritable but controlled. He denied suicidal ideation and wishes. He ruminated about admission, discharge and the above topics that suggested paranoid ideation and paranoid delusional beliefs. He denied hallucinations and did not appear to responding to internal stimuli. Assessment: He does not appear as paranoid as he was on admission. He is minimizing his use of amphetamine and alcohol. Plan: He attended inpatient treatment. Safety precautions. Continue Cymbalta 30 mg daily, Neurontin 3 mg 3 times a day, Vistaril 25 mg every 6 when necessary for anxiety, melatonin 5 mg at bedtime and Seroquel 59 g at bedtime. Habitrol for smoking cessation. Continue Lipitor, [place] and Protonix. Encourage participation in therapeutic groups and activities. Evaluate clinical status response to treatment daily basis.
[2020-11-20] MEDS: GABAPENTIN 300 MG CAP PO PRN (17:29)
[2020-11-20] MEDS: QUEtiapine 50 MG TAB PO SCH (20:38)
[2020-11-20] MEDS: MELATONIN 5 MG TABLET PO SCH (20:38)
[2020-11-21 07:13] VITALS: RESP 16
[2020-11-21] MEDS: DULoxetine HCL 30 MG CAPSULE.DR PO SCH (08:41)
[2020-11-21] MEDS: ATORVASTATIN 10 MG TAB PO SCH (08:41)
[2020-11-21] MEDS: PANTOPRAZOLE 40 MG TABLET PO SCH (08:41)
[2020-11-21] MEDS: MULTIVITAMINS, THERA 1 EACH TAB PO SCH (08:41)
[2020-11-21] MEDS: NICOTINE 14MG/24HR PATCH TRANSDERM SCH (08:41)
[2020-11-21] MEDS: GABAPENTIN 300 MG CAP PO PRN ×2 (08:44→15:46)
[2020-11-21] MEDS: HYDROcodone/APAP 7.5-325MG 1 EACH TAB PO PRN ×2 (08:44→15:46)
[2020-11-21] MEDS: hydrOXYzine pamoate 25 MG CAP PO PRN (08:45)
[2020-11-21] MEDS: NICOTINE 21MG/24HR PATCH TRANSDERM SCH (09:03)
--- NOTE | 2020-11-21 14:34 | P.PN ---
Progress Note - Text Progress Note Date: 11/21/20 Clinical Problems: Methamphetamine use disorder unspecified, methamphetamine induced psychotic disorder, alcohol use disorder moderate, tobacco use Interim history: I reviewed the medical record and interviewed the patient. He was focused on discharge and became angry when I explained that I do not plan to discharge him today. He demanded to sign himself out. I referred him to nursing for a 3 day notice. He denied feeling depressed or having thoughts of or suicide. He denied feeling frightened or scared. He denied auditory, visual or olfactory hallucinations. He denied ideas of reference, thought insertion, thought broadcasting or thought control. He attended one therapeutic group yesterday. He slept 8 hours last night. Mental status exam: He presented as a disheveled-appearing 40-year-old male who is irritable but cooperative. He made eye contact and rianna eared to attend to interview. He had a distressed facial expression. He showed psychomotor retardation but no abnormal movements. Her speech was spontaneous with normal rate and rhythm. His affect was irritable but controlled. He denied suicidal ideation and wishes. He ruminated about admission, discharge and the above topics that suggested paranoid ideation and paranoid delusional beliefs. He denied hallucinations and did not appear to responding to internal stimuli. Assessment: He shows no insight or understanding the reason for this hospitalization but is denying psychotic symptoms. Plan: Continue inpatient treatment. Safety precautions. Continue Cymbalta 30 mg daily, Neurontin 300 mg 3 times a day, Vistaril 25 mg every 6 when necessary for anxiety, melatonin 5 mg at bedtime and Seroquel 50 mg at bedtime. Habitrol for smoking cessation. Continue Lipitor, [place] and Protonix. Encourage participation in therapeutic groups and activities. Evaluate clinical status r esponse to treatment daily basis.
[2020-11-21 18:52] VITALS: TEMP 97.5
[2020-11-21] MEDS: MELATONIN 5 MG TABLET PO SCH (21:08)
[2020-11-21] MEDS: QUEtiapine 50 MG TAB PO SCH (21:08)
[2020-11-22] MEDS: HYDROcodone/APAP 7.5-325MG 1 EACH TAB PO PRN ×2 (00:12→08:49)
[2020-11-22] MEDS: GABAPENTIN 300 MG CAP PO PRN ×2 (00:12→08:49)
[2020-11-22] MEDS: MULTIVITAMINS, THERA 1 EACH TAB PO SCH (08:02)
[2020-11-22] MEDS: PANTOPRAZOLE 40 MG TABLET PO SCH (08:02)
[2020-11-22] MEDS: ATORVASTATIN 10 MG TAB PO SCH (08:02)
[2020-11-22] MEDS: NICOTINE 21MG/24HR PATCH TRANSDERM SCH (08:02)
[2020-11-22 08:41] VITALS: BP 100/53; PULSE 72
[2020-11-22] MEDS: DULoxetine HCL 30 MG CAPSULE.DR PO SCH (08:50)
--- NOTE | 2020-11-22 09:28 | P.PN ---
Progress Note - Text Progress Note Date: 11/19/20 Interval History: Patient was seen lying down in his bed and was directable and agreeable to speak with remote mortgage underwriter in the office. Patient appeared to be superficially cooperative once again today with remote mortgage underwriter. He continues to be focused on discharge and have poor insight and judgment. He showed some improvement in his mood and his irritability/impulse control today. He claims that he has been talking to his mother on the phone about discharge planning. He claims that he did take Seroquel which helped him more with sleep last night however was agreeable to have melatonin scheduled for tonight. He claims that his mood is "ok" and has an incongruent and constricted affect. He denies any anxiety today. States that he has not gone any groups. At this time patient denies any suicidal or homical ideations, intent or plan. Patient denies any auditory, visual hallucinations. He claims that the paranoia has been improving mildly today. Mental Status Exam: General Appearance: Patient appears to be overweight, stated age is alert, impulsive , superficially cooperative, improving mildly. Patient appears to have improving hygiene and grooming. Behavior: Patient is seated without any agitated behavior. Superficially cooperative, improving mildly Speech: Patient's speech is fluent and nonpressured. Mood/Affect: Patient reports their mood is "ok", affect is incongruent and constricted. Suicidality/Homicidality: Patient denies having any homicidal ideation intent or plan. Denies any suicidal ideations intent or plan Perceptions: Patient denies any visual hallucinations and denies any auditory hallucinations Though content/process: Vague, guarded/evasive, poverty of content. Paranoia improving. 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 Patient has signed adult voluntary form and medication consent and was placed in patient's chart. -Medications: Continue with Seroquel 50 mg daily at bedtime for mood stabilization/psychosis. Added Cymbalta 30 mg daily for mood/anxiety/pain. Vistaril when necessary for anxiety. Scheduled melatonin 5 mg daily at bedtime for insomnia. -When necessary Ativan and Haldol for agitation/aggression. -NRT - nicotine patch -SW on board for discharge planning. Encouraged the patient to participate in milieu. Patient continues to claim that he is not interested in rehab at this time. Patient apparently does have access to guns in his home and these will need to be secured upon discharge. Likely discharge on Sunday patient does well over the weekend.
--- NOTE | 2020-11-22 09:41 | P.DS ---
Providers Date of admission: 11/16/20 21:30 Expected date of discharge: 11/22/20 Attending physician: Wolf Hudson MD Consults: 11/16/20 21:47 Consult Physician Routine Consulting Provider: Ady Campbell Consult Reason/Comments: H&P and medical Do you want consulting provider notified?: Yes Primary care physician: Ady Campbell - Discharge Diagnosis(es) (1) Unspecified psychosis Current Visit: Yes Status: Acute Priority: High (2) Methamphetamine abuse Current Visit: Yes Status: Acute Priority: High (3) Alcohol use disorder Current Visit: Yes Status: Acute Priority: Medium (4) Nicotine dependence Current Visit: Yes Status: Acute Priority: Low Hospital Course: Admission HPI: Admission note was completed by inspector automatic typewriter "Patient is a 40-year-old male who currently lives alone in a house has 1 son and collects Social Security disability. Patient presented to the hospital yesterday with complaints of paranoia as people were apparently following him as he believed. Patient reported that he uses methamphetamine regularly. As per ER report claims that patient apparently had taken and asked to his wall and owns guns at his home. Patient was fairly uncooperative and agitated last night and received IM Haldol and Ativan for his agitation. Patient was seen this morning and appeared to be disheveled in appearance of poor hygiene and grooming and appeared to be fairly sedated. He states that he is feeling upset that he is on the unit and was demanding discharge several times. He was fairly vague and uncooperative and irritable with inspector automatic typewriter. He states that "I've been using a lot of drugs" and reported drinking alcohol approximately 1-2 beers a day and also using methamphetamine approximately a gram every other day. He states that he's been using methamphetamine for approximately 1 year now. He states that he was brought into the hospital by his mother for concerns about his paranoia and when describing about the acts in the wall he states that "I thought my phone was in there". He states that his mood is "alright" however has an incongruent affect and was fairly irritable. He denies any anxiety. He states that he has poor sleep. He has poor insight and judgment and is impulsive. Patient denies any suicidal or homicidal ideations intent or plan. At this time patient denies any auditory or visual hallucinations. Patient admits to using methamphetamine and alcohol as listed above. He admits to cigarette use daily." Hospital course: Upon admission to the unit patient was initially depressed, irritable and psychotic. Patient was however directable and agreeable to commence treatment and signed adult voluntary form. Patient got along well with other patients on the unit and followed unit protocol. Patient was compliant with the medications and denied any side effects throughout hospital course. Patient was started on Cymbalta 30 mg daily for mood/anxiety/pain, Seroquel 50 mg nightly for mood stabilization/psychosis, melatonin 5 mg daily at bedtime for insomnia, Vistaril when necessary for anxiety. Patient spoke of his stressors mainly in individual therapy however only engaged partly in group therapy and activities. Patient mainly isolated in his room during the hospitalization. Patient was also seen by medical team for history and physical exam. Throughout the course of the hospitalization patient gradually improved with regards to mood, psychosis/paranoia, sleep and became more future oriented with improved insight and judgment. On the day of discharge patient denied any suicidal or homicidal ideations intent or plan denied any auditory or visual hallucinations. Patient endorsed wanting to live for his family and his future. The patient does have access to guns and weapons and does live alone at home however executive secretary social welfare has made contact the patient's mother who is agreeable to go to patient's home and removed the weapons and guns. Patient denied any paranoia and did not endorse any delusions. Patient does have a significant history of substance abuse and was counseled on abstaining from all substances including alcohol and marijuana. Patient was offered however declined inpatient substance-abuse rehab. Patient claims that he wants to cut back his substance abuse on his own. Patient was also counseled on the medications and need for regular compliance and was encouraged to follow-up with their outpatient appointment for mental health and also for primary care. Prior to discharge a family meeting will be arranged by executive secretary social welfare to answer any questions and ensure safety upon discharge. Mental status exam: General Appearance: Patient appears to be overweight, stated age is alert, directable, and cooperative. Patient is in no acute distress and has improved hygiene and grooming Behavior: Patient is calmly seated without any agitated behavior. More cooperative today. Speech: Patient's speech is fluent and nonpressured. Mood/Affect: Patient reports their mood is "good", affect is congruent and constricted. Suicidality/Homicidality: Patient denies having any suicidal or homicidal ideation intent or plan. Perceptions: Patient denies any auditory or visual hallucinations. Though content/process: There is no evidence of any delusional thought content and thought process is linear and goal-directed. more future oriented Memory and concentration: AOX3, grossly intact for the purposes of this session. Can spell "WORLD" backwards correctly. Judgment and insight: chronically poor, however has improved with guarded prognosis Impression: Psychosis unspecified, likely secondary to methamphetamine abuse Methamphetamine abuse Alcohol use disorder Nicotine dependence Plan: -Continue with discharge today as patient has improved and stabilized psychiatrically and is not currently an imminent threat to himself and/or others. Patient will remain at chronically elevated risk for harm to self and/or others due to his impulsivity and polysubstance abuse. -Continue medications:. Continue Seroquel 50 mg daily at bedtime for mood stabilization's last psychosis, Cymbalta 30 mg daily for mood/anxiety/pain, melatonin 5 mg daily at bedtime for insomnia, Vistaril 25 mg twice a day when necessary for anxiety. -Patient was counseled on the need for medication compliance and appropriate follow-up at mental health and also primary care for medical issues. Patient verbalized understanding and agreed. -Social work to arrange for and conduct family meeting to ensure safety upon discharge and answer any questions/concerns. Social work also to arrange for patients follow up appointments for psychiatric care at [facility] along with follow up with primary care provider. -parks worker contacted patient's mother to have the guns and weapons removed from the patient's home as he lives alone at this time. -Patient counseled on abstaining from recreational drugs and marijuana and alcohol. Was informed/educated on the adverse effects on their physical and mental health. Patient verbally agreed and understood. Patient was offered substance abuse treatment however declined at this time and wanted to cut back on his own. -Patient was instructed to return to the hospital or seek immediate medical care if their psychiatric or medical symptoms do worsen or reoccur. Allergies Allergy/AdvReac Type Severity Reaction Status Date / Time Penicillins Allergy Unknown Verified 11/16/20 20:27 Childhood Laboratory Results WBC 6.8 k/uL (3.8-10.6) 11/19/20 07:14 RBC 4.50 m/uL (4.30-5.90) 11/19/20 07:14 Hgb 14.7 gm/dL (13.0-17.5) 11/19/20 07:14 Hct 43.4 % (39.0-53.0) 11/19/20 07:14 MCV 96.4 fL (80.0-100.0) 11/19/20 07:14 MCH 32.6 pg (25.0-35.0) 11/19/20 07:14 MCHC 33.8 g/dL (31.0-37.0) 11/19/20 07:14 RDW 11.9 % (11.5-15.5) 11/19/20 07:14 Plt Count 143 k/uL (150-450) L 11/19/20 07:14 MPV 7.7 11/19/20 07:14 Neutrophils % 59 % 11/19/20 07:14 Lymphocytes % 29 % 11/19/20 07:14 Monocytes % 8 % 11/19/20 07:14 Eosinophils % 1 % 11/19/20 07:14 Basophils % 1 % 11/19/20 07:14 Neutrophils # 4.0 k/uL (1.3-7.7) 11/19/20 07:14 Lymphocytes # 1.9 k/uL (1.0-4.8) 11/19/20 07:14 Monocytes # 0.5 k/uL (0-1.0) 11/19/20 07:14 Eosinophils # 0.1 k/uL (0-0.7) 11/19/20 07:14 Basophils # 0.0 k/uL (0-0.2) 11/19/20 07:14 Sodium 140 mmol/L (137-145) 11/20/20 07:51 Potassium 4.5 mmol/L (3.5-5.1) 11/20/20 07:51 Chloride 108 mmol/L (98-107) H 11/20/20 07:51 Carbon Dioxide 29 mmol/L (22-30) 11/20/20 07:51 Anion Gap 3 mmol/L 11/20/20 07:51 BUN 12 mg/dL (9-20) 11/20/20 07:51 Creatinine 0.64 mg/dL (0.66-1.25) L 11/20/20 07:51 Est GFR (CKD-EPI)AfAm >90 (>60 ml/min/1.73 sqM) 11/20/20 07:51 Est GFR (CKD-EPI)NonAf >90 (>60 ml/min/1.73 sqM) 11/20/20 07:51 Glucose 108 mg/dL (74-99) H 11/20/20 07:51 Calcium 9.2 mg/dL (8.4-10.2) 11/20/20 07:51 Magnesium 1.8 mg/dL (1.6-2.3) 11/19/20 07:14 Coronavirus (PCR) Not Detected (Not Detectd) 11/16/20 20:46 Vital Signs Temp 97.5 F L 11/21/20 18:51 Pulse 72 11/22/20 08:41 Resp 16 11/21/20 06:40 BP 100/53 11/22/20 08:41 Pulse Ox 98 11/16/20 21:40 Patient Condition at Discharge: Stable Plan - Discharge Summary New Discharge Prescriptions: New DULoxetine HCL [Cymbalta] 30 mg PO DAILY 30 Days capsule. Nicotine 21Mg/24Hr Patch [Habitrol] 1 patch TRANSDERM DAILY 14 Days patch Atorvastatin [Lipitor] 10 mg PO DAILY tab Melatonin 5 mg PO HS 30 Days tablet Multivitamins, Thera [Multivitamin (formulary)] 1 each PO DAILY 30 Days tab Pantoprazole [Protonix] 40 mg PO AC-BRKFST 30 Days tablet. QUEtiapine [SEROquel] 50 mg PO HS 30 Days tab hydrOXYzine pamoate [Vistaril] 25 mg PO BID PRN 30 Days cap PRN Reason: Anxiety Continue Hydrocodone/Acetaminophen [Badin 10-325] 1 tab PO TID PRN PRN Reason: Pain Gabapentin [Neurontin] 300 mg PO TID PRN PRN Reason: Pain Discontinued Atorvastatin Calcium [Lipitor] 10 mg PO DAILY Multivitamins, Thera [Multivitamin (formulary)] 1 tab PO DAILY amLODIPine [Norvasc] 5 mg PO DAILY hydroCHLOROthiazide 25 mg PO DAILY Discharge Medication List Hydrocodone/Acetaminophen [Badin 10-325] 1 tab PO TID PRN 12/06/18 [History] Gabapentin [Neurontin] 300 mg PO TID PRN 04/28/20 [History] Atorvastatin [Lipitor] 10 mg PO DAILY tab 11/22/20 [Rx] DULoxetine HCL [Cymbalta] 30 mg PO DAILY 30 Days capsule. 11/22/20 [Rx] Melatonin 5 mg PO HS 30 Days tablet 11/22/20 [Rx] Multivitamins, Thera [Multivitamin (formulary)] 1 each PO DAILY 30 Days tab 11/22/20 [Rx] Nicotine 21Mg/24Hr Patch [Habitrol] 1 patch TRANSDERM DAILY 14 Days patch 11/22/20 [Rx] Pantoprazole [Protonix] 40 mg PO AC-BRKFST 30 Days tablet. 11/22/20 [Rx] QUEtiapine [SEROquel] 50 mg PO HS 30 Days tab 11/22/20 [Rx] hydrOXYzine pamoate [Vistaril] 25 mg PO BID PRN 30 Days cap 11/22/20 [Rx] Follow up Appointment(s)/Referral(s): [facility] [Outside] - 11/29/20 1:30 pm (Azucena Onofre) Ady Campbell MD [Primary Care Provider] - 1-2 days Discharge Disposition: HOME SELF-CARE
== END 2020-11-22 11:02 | disposition home or self-care (01) | DRG 885 ==
LOC: EC 17:09 → 3MHU 21:30
PROVIDERS: ADMIT Psychiatry & Neurology Psychiatry; ATTEND Psychiatry & Neurology Psychiatry
DX: F23 Brief psychotic disorder (principal); R45.851 Suicidal ideations; E66.9 Obesity, unspecified; E78.5 Hyperlipidemia, unspecified; F10.20 Alcohol dependence, uncomplicated; F15.159 Other stimulant abuse with stimulant-induced psychotic disorder, unspecified; F17.200 Nicotine dependence, unspecified, uncomplicated; F41.9 Anxiety disorder, unspecified; G47.00 Insomnia, unspecified; G89.29 Other chronic pain; I10 Essential (primary) hypertension; Z68.30 Body mass index [BMI] 30.0-30.9, adult; Z79.899 Other long term (current) drug therapy; Z20.822 Contact with and (suspected) exposure to COVID-19
CPT/HCPCS: 80048; 82075; 83735; 85025; 87635; 99285

== ENCOUNTER 2021-08-31 16:33 | Emergency (ER) | payer OTHER ==
[2021-08-31 17:43] VITALS: TEMP 98
[2021-08-31 18:01] VITALS: BP 171/101; PULSE 88; RESP 19
--- NOTE | 2021-08-31 18:27 | ED ---
General Adult HPI - General Chief complaint: Psychiatric Symptoms Stated complaint: Mental Health Time Seen by Provider: 08/31/21 17:44 Source: patient, RN notes reviewed, old records reviewed Mode of arrival: ambulatory Limitations: no limitations - History of Present Illness Initial comments: 41-year-old male presenting from the local group home for psychiatric evaluation. He has been petitioned. Patient has had nonsensical conversation. History of mental illness. He's been off of his medications. He has not made suicidal comments. He continues to repeat the phrase Sunday to Sunday. - Related Data Home Medications Medication Instructions Recorded Confirmed Hydrocodone/Acetaminophen [[place] 1 tab PO TID PRN 12/06/18 08/31/21 10-325] Gabapentin [Neurontin] 300 mg PO BID 04/28/20 08/31/21 Pantoprazole [Protonix] 40 mg PO DAILY 08/31/21 08/31/21 amLODIPine [Norvasc] 5 mg PO DAILY 08/31/21 08/31/21 hydroCHLOROthiazide [Hydrodiuril] 25 mg PO DAILY 08/31/21 08/31/21 lisinopriL [Zestril] 10 mg PO DAILY 08/31/21 08/31/21 Previous Rx's Medication Instructions Recorded Atorvastatin [Lipitor] 10 mg PO DAILY tab 11/22/20 DULoxetine HCL [Cymbalta] 30 mg PO DAILY 30 Days capsule. 11/22/20 QUEtiapine [SEROquel] 50 mg PO HS 30 Days tab 11/22/20 Allergies Allergy/AdvReac Type Severity Reaction Status Date / Time Penicillins Allergy Unknown Verified 08/31/21 17:43 Childhood Review of Systems ROS Statement: Those systems with pertinent positive or pertinent negative responses have been documented in the HPI. ROS Other: All systems not noted in ROS Statement are negative. Past Medical History Past Medical History: Chest Pain / Angina, Hyperlipidemia, Hypertension Additional Past Medical History / Comment(s): "high liver enzymes",lower back pain, degenerative disk disease,herniated disk, History of Any Multi-Drug Resistant Organisms: None Reported Past Surgical History: Orthopedic Surgery Additional Past Surgical History / Comment(s): rt hand surgery, oral surgery Past Anesthesia/Blood Transfusion Reactions: No Reported Reaction Past Psychological History: Anxiety Smoking Status: Current every day smoker Past Alcohol Use History: Daily Past Drug Use History: Marijuana, Methamphetamine - Past Family History Father Family Medical History: Cancer General Exam Limitations: no limitations General appearance: alert, in no apparent distress Head exam: Present: atraumatic, normocephalic Eye exam: Present: normal appearance, PERRL ENT exam: Present: normal exam Neck exam: Present: normal inspection. Absent: tenderness, meningismus Respiratory exam: Present: normal lung sounds bilaterally. Absent: respiratory distress, wheezes Cardiovascular Exam: Present: regular rate, normal rhythm GI/Abdominal exam: Present: soft. Absent: distended, tenderness, guarding Extremities exam: Present: normal inspection Neurological exam: Present: alert. Absent: motor sensory deficit Psychiatric exam: Present: flat affect, other (Patient is having internal conversation). Absent: suicidal ideation Skin exam: Present: warm, dry, intact Course Vital Signs 08/31/21 08/31/21 17:40 18:01 Temperature 98 F Pulse Rate 82 88 Respiratory 20 19 Rate Blood Pressure 229/120 171/101 O2 Sat by Pulse 98 98 Oximetry - Reevaluation(s) Reevaluation #1: 08/31/21 18:27 Patient cleared for EPS evaluation. Medical Decision Making - Medical Decision Making Patient has been evaluated by EPS felt to be safe for discharge. He's taken back to the local group home. He is not a harm to himself, no risks currently of suicidal thoughts or suicidal ideation. No homicidal ideation. Disposition Clinical Impression: Psychosis Disposition: HOME SELF-CARE Condition: Fair Is patient prescribed a controlled substance at d/c from ED?: No Referrals: Ady Campbell MD [Primary Care Provider] - 1-2 days
== END 2021-08-31 22:24 | disposition home or self-care (01) ==
LOC: EC 16:33
DX: F29 Unspecified psychosis not due to a substance or known physiological condition (principal); I10 Essential (primary) hypertension; E78.5 Hyperlipidemia, unspecified; F41.9 Anxiety disorder, unspecified; F17.200 Nicotine dependence, unspecified, uncomplicated; F12.90 Cannabis use, unspecified, uncomplicated; Z79.899 Other long term (current) drug therapy; Z88.0 Allergy status to penicillin
CPT/HCPCS: 82075; 99283

== ENCOUNTER 2023-10-24 17:23 | Inpatient (IN) | payer MEDICARE, OTHER ==
[2023-10-24] MEDS ORDERED: SODIUM CHLORIDE 0.9% 1,000 ML IV STA (18:48)
[2023-10-24] MEDS ORDERED: SODIUM CHLORIDE 0.9% 500 ML 500 ML IV STA (18:48)
[2023-10-24 19:15] LABS: HCT 37.2 % (39.0-53.0); HGB 12.3 gm/dL (13.0-17.5); MCH 36.9 pg (25.0-35.0); MCHC 32.9 g/dL (31.0-37.0); MCV 112.2 fL (80.0-100.0); Macrocytosis Marked; Mean Platelet Volume 12.3; RBC 3.32 m/uL (4.30-5.90); WBC 8.2 k/uL (3.8-10.6)
--- NOTE | 2023-10-24 19:21 | ED ---
Weakness HPI - General Chief complaint: Urogenital Stated complaint: Low Blood Pressure w/Dark Urine Time Seen by Provider: 10/24/23 18:48 Source: patient, RN notes reviewed, old records reviewed Mode of arrival: ambulatory Limitations: no limitations, altered mental status - History of Present Illness Initial comments: This is a 43-year-old male who was sent in by his pain control physician for evaluation pain weakness decreased urinary output and significant skin color changes, patient was seen by a pain management doctor prior to arrival and sent him DF for evaluation of significant altered mental status worsening generalized medical condition weakness not feeling well. Patient has history of underlying mental health and mental illness as well as drug and alcohol abuse. MD Complaint: generalized weakness -: hour(s) Location: generalized Severity: moderate Severity scale (1-10): 5 Quality: tingling, numbness Consistency: constant Improves with: none Worsens with: none Associated Symptoms: denies other symptoms - Related Data Home Medications Medication Instructions Recorded Confirmed Gabapentin [Neurontin] 300 mg PO TID 04/28/20 10/24/23 lisinopriL [Zestril] 10 mg PO DAILY 08/31/21 10/24/23 Metoprolol Succinate (ER) [Toprol 50 mg PO DAILY 10/24/23 10/24/23 XL] Previous Rx's Medication Instructions Recorded Lactulose [Cephulac] 30 gm PO DAILY 30 Days #900 gm 10/28/23 Midodrine [ProAmatine] 10 mg PO AC-TID #90 tab 10/28/23 Thiamine [Vitamin B-1] 100 mg PO DAILY #30 tab 10/28/23 oxyCODONE HCL [OxyIR] 5 mg PO Q6HR PRN tab 10/28/23 Allergies Allergy/AdvReac Type Severity Reaction Status Date / Time Penicillins Allergy Unknown Verified 10/24/23 21:10 Childhood Review of Systems ROS Statement: Those systems with pertinent positive or pertinent negative responses have been documented in the HPI. ROS Other: All systems not noted in ROS Statement are negative. Past Medical History Past Medical History: Chest Pain / Angina, Hyperlipidemia, Hypertension Additional Past Medical History / Comment(s): "high liver enzymes",lower back pain, degenerative disk disease,herniated disk, History of Any Multi-Drug Resistant Organisms: None Reported Past Surgical History: Orthopedic Surgery Additional Past Surgical History / Comment(s): rt hand surgery, oral surgery Past Anesthesia/Blood Transfusion Reactions: No Reported Reaction Past Psychological History: Anxiety Smoking Status: Current every day smoker Past Alcohol Use History: Daily Past Drug Use History: Marijuana, Methamphetamine - Past Family History Father Family Medical History: Cancer General Exam Limitations: altered mental status General appearance: alert, in no apparent distress, anxious Head exam: Present: atraumatic, normocephalic, normal inspection Eye exam: Present: normal appearance, PERRL, EOMI. Absent: scleral icterus, conjunctival injection, periorbital swelling ENT exam: Present: normal exam, mucous membranes moist Neck exam: Present: normal inspection. Absent: tenderness, meningismus, lymphadenopathy Respiratory exam: Present: normal lung sounds bilaterally. Absent: respiratory distress, wheezes, rales, rhonchi, stridor Cardiovascular Exam: Present: regular rate, normal rhythm, normal heart sounds. Absent: systolic murmur, diastolic murmur, rubs, gallop, clicks GI/Abdominal exam: Present: soft, normal bowel sounds. Absent: distended, tenderness, guarding, rebound, rigid Extremities exam: Present: normal inspection, full ROM, normal capillary refill. Absent: tenderness, pedal edema, joint swelling, calf tenderness Back exam: Present: normal inspection Neurological exam: Present: alert, oriented X3, CN II-XII intact Psychiatric exam: Present: normal affect, normal mood Skin exam: Present: warm, dry, intact, normal color. Absent: rash Course Vital Signs 10/24/23 10/24/23 10/24/23 18:23 18:37 18:49 Temperature 98.3 F Pulse Rate 77 64 Respiratory 18 16 Rate Blood Pressure 175/145 76/40 O2 Sat by Pulse 98 94 L 99 Oximetry 10/24/23 10/24/23 10/24/23 19:00 20:00 20:54 Temperature 98 F Pulse Rate 65 Respiratory 14 Rate Blood Pressure 76/43 105/50 102/51 O2 Sat by Pulse 99 100 100 Oximetry 10/24/23 10/24/23 10/24/23 21:00 21:54 22:00 Temperature Pulse Rate 68 Respiratory 18 Rate Blood Pressure 102/51 93/45 93/45 O2 Sat by Pulse 96 98 98 Oximetry 10/24/23 10/24/23 10/24/23 22:30 23:00 23:30 Temperature Pulse Rate Respiratory Rate Blood Pressure 70/34 90/42 80/34 O2 Sat by Pulse 98 99 99 Oximetry 10/24/23 10/25/23 10/25/23 23:43 00:00 00:30 Temperature Pulse Rate Respiratory Rate Blood Pressure 76/31 93/49 86/36 O2 Sat by Pulse 96 97 97 Oximetry 10/25/23 10/25/23 10/25/23 01:00 01:30 02:00 Temperature Pulse Rate Respiratory Rate Blood Pressure 94/39 74/45 75/48 O2 Sat by Pulse 96 95 96 Oximetry 10/25/23 10/25/23 10/25/23 03:00 04:00 05:00 Temperature Pulse Rate Respiratory Rate Blood Pressure 102/41 86/35 74/29 O2 Sat by Pulse 98 Oximetry 10/25/23 10/25/23 10/25/23 05:10 07:00 08:03 Temperature 98.2 F Pulse Rate 73 66 68 Respiratory 16 16 18 Rate Blood Pressure 76/27 78/41 82/41 O2 Sat by Pulse 97 97 98 Oximetry 10/25/23 10/25/23 10/25/23 08:14 09:45 10:15 Temperature Pulse Rate 74 72 71 Respiratory 18 18 16 Rate Blood Pressure 71/33 87/54 78/59 O2 Sat by Pulse 97 99 95 Oximetry 10/25/23 10/25/23 10/25/23 12:55 14:00 15:40 Temperature 98.4 F Pulse Rate 71 65 67 Respiratory 18 16 16 Rate Blood Pressure 104/47 100/65 96/54 O2 Sat by Pulse 97 95 97 Oximetry 10/25/23 10/25/23 10/25/23 16:00 18:00 20:10 Temperature Pulse Rate 71 65 68 Respiratory 18 18 17 Rate Blood Pressure 101/47 105/48 123/68 O2 Sat by Pulse 98 97 Oximetry 10/25/23 10/25/23 10/26/23 21:24 23:02 00:53 Temperature 98.4 F Pulse Rate 71 71 65 Respiratory 16 16 18 Rate Blood Pressure 102/64 113/53 113/62 O2 Sat by Pulse 98 97 95 Oximetry - Reevaluation(s) Reevaluation #1: 10/24/23 21:40 Medical records reviewed Reevaluation #2: 10/24/23 Patient still feels severely weak here in the ER with low blood pressures Reevaluation #3: 10/24/23 21:40 Patient informed results questions answered Reevaluation #4: Was pt. sent in by a medical professional or institution (GLENN Guerrero, SENIOR CHEMICAL PROCESS ENGINEER, urgent care, hospital, or custodial...) When possible be specific @ -no Did you speak to anyone other than the patient for history (EMS, parent, family, police, friend...)? What history was obtained from this source @ -no Did you review nursing and triage notes (agree or disagree)? Why? @ -agree Are old charts reviewed (outside hosp., previous admission, EMS record, old EKG, old radiological studies, urgent care reports/EKG's, custodial records)? Report findings @ -yes Differential Diagnosis (chest pain, altered mental status, abdominal pain women, abdominal pain men, vaginal bleeding, weakness, fever, dyspnea, syncope, headache, dizziness, GI bleed, back pain, seizure, CVA, palpatations, mental health, musculoskeletal)? @ -prior EKG interpreted by me (3pts min.). @ -yes X-rays interpreted by me (1pt min.). @ -no CT interpreted by me (1pt min.). @ -yes Positive for ascites U/S interpreted by me (1pt. min.). @ -Yes positive for ascites What testing was considered but not performed or refused? (CT, X-rays, U/S, labs)? Why? @ -none What meds were considered but not given or refused? Why? @ -none Did you discuss the management of the patient with other professionals (professionals i.e. GLENN Guerrero, SENIOR CHEMICAL PROCESS ENGINEER, lab, RT, psych nurse, social economist, cooler man, teacher, human resource officer, director of casework services)? Give summary @ -no Was smoking cessation discussed for >3mins.? @ -no Was critical care preformed (if so, how long)? @ -no Were there social determinants of health that impacted care today? How? (Homelessness, low income, unemployed, alcoholism, drug addiction, transportation, low edu. Level, literacy, decrease access to med. care, shelter, rehab)? @ -none Was there de-escalation of care discussed even if they declined (Discuss DNR or withdrawal of care, Hospice)? DNR status @ -no What co-morbidities impacted this encounter? (DM, HTN, Smoking, COPD, CAD, Cancer, CVA, ARF, Chemo, Hep., AIDS, mental health diagnosis, sleep apnea, morbid obesity)? @ -none Was patient admitted / discharged? Hospital course, mention meds given and route, prescriptions, significant lab abnormalities, going to OR and other pertinent info. @ - 43 male to the emergency department today for evaluation of renal failure weakness discoloration significant jaundice with hyperbilirubinemia and cirrhosis Admitted Undiagnosed new problem with uncertain prognosis? @ -no Drug Therapy requiring intensive monitoring for toxicity (Heparin, Nitro, Insulin, Cardizem)? @ -no Were any procedures done? @ -no Diagnosis/symptom? @ -Cirrhosis, hyperbilirubinemia, alcohol related liver failure and ascites Acute, or Chronic, or Acute on Chronic? @ -Acute Uncomplicated (without systemic symptoms) or Complicated (systemic symptoms)? @ -Complicated Side effects of treatment? @ -no Exacerbation, Progression, or Severe Exacerbation? @ -exacerbation Poses a threat to life or bodily function? How? (Chest pain, USA, PA, pneumonia, PE, COPD, DKA, ARF, appy, cholecystitis, CVA, Diverticulitis, Homicidal, Suicidal, threat to staff... and all critical care pts) @ -yes with significant illness in distress Reevaluation #5: Differential Weakness: Hypoglycemia, shock, sepsis, hyponatremia, anemia, infection, PA, ETOH, adverse medicine reaction, overdose, stroke, this is not meant to be an all-inclusive list. - Consultations Consultation #1: Spoke with Dr. Campbell who is okay to admit this patient Medical Decision Making - Medical Decision Making 43 male to the emergency department today for evaluation of renal failure weakness discoloration significant jaundice with hyperbilirubinemia and cirrhosis - Lab Data Result diagrams: 10/28/23 03:29 10/28/23 03:29 Lab Results 10/24/23 10/24/23 10/24/23 Range/Units 18:48 18:48 18:48 WBC 8.2 (3.8-10.6) k/uL RBC 3.32 L (4.30-5.90) m/uL Hgb 12.3 L (13.0-17.5) gm/dL Hct 37.2 L (39.0-53.0) % MCV 112.2 H (80.0-100.0) fL MCH 36.9 H (25.0-35.0) pg MCHC 32.9 (31.0-37.0) g/dL RDW 16.0 H (11.5-15.5) % Plt Count 97 L (150-450) k/uL MPV 12.3 Neutrophils % (Manual) 57 % Band Neuts % (Manual) 5 % Lymphocytes % (Manual) 31 % Monocytes % (Manual) 7 % Neutrophils # (Manual) 5.00 (1.3-7.7) k/uL Lymphocytes # (Manual) 2.54 (1.0-4.8) k/uL Monocytes # (Manual) 0.57 (0-1.0) k/uL Nucleated RBCs 0 (0-0) /100 WBC Manual Slide Review Performed Macrocytosis Marked A Target Cells Present Stomatocytes Present PT (10.0-12.5) sec INR (<1.2) APTT (22.0-30.0) sec Sodium 132 L (137-145) mmol/L Potassium 4.1 (3.5-5.1) mmol/L Chloride 99 (98-107) mmol/L Carbon Dioxide 22 (22-30) mmol/L Anion Gap 11 mmol/L BUN 26 H (9-20) mg/dL Creatinine 2.47 H (0.66-1.25) mg/dL Est GFR (CKD-EPI)AfAm 36 (>60 ml/min/1.73 sqM) Est GFR (CKD-EPI)NonAf 31 (>60 ml/min/1.73 sqM) Glucose 128 H (74-99) mg/dL Lactic Ac Sepsis Rflx Plasma Lactic Acid Sherif 2.2 H* (0.7-2.0) mmol/L Calcium 7.9 L (8.4-10.2) mg/dL Total Bilirubin 16.4 H* (0.2-1.3) mg/dL AST 528 H (17-59) U/L ALT 104 H (4-49) U/L Alkaline Phosphatase 161 H (38-126) U/L Ammonia 14 (<30) umol/L Troponin I (0.000-0.034) ng/mL Total Protein 6.1 L (6.3-8.2) g/dL Albumin 2.3 L (3.5-5.0) g/dL Amylase 65 (30-110) U/L Lipase 277 (23-300) U/L Urine Color Urine Appearance (Clear) Urine RBC (0-5) /hpf Urine WBC (0-5) /hpf Urine WBC Clumps (None) /hpf Ur Squamous Epith Cells (0-4) /hpf Urine Bacteria (None) /hpf Urine Mucus (None) /hpf 10/24/23 10/24/23 10/24/23 Range/Units 18:49 18:49 18:53 WBC (3.8-10.6) k/uL RBC (4.30-5.90) m/uL Hgb (13.0-17.5) gm/dL Hct (39.0-53.0) % MCV (80.0-100.0) fL MCH (25.0-35.0) pg MCHC (31.0-37.0) g/dL RDW (11.5-15.5) % Plt Count (150-450) k/uL MPV Neutrophils % (Manual) % Band Neuts % (Manual) % Lymphocytes % (Manual) % Monocytes % (Manual) % Neutrophils # (Manual) (1.3-7.7) k/uL Lymphocytes # (Manual) (1.0-4.8) k/uL Monocytes # (Manual) (0-1.0) k/uL Nucleated RBCs (0-0) /100 WBC Manual Slide Review Macrocytosis Target Cells Stomatocytes PT 18.9 H (10.0-12.5) sec INR 1.9 H (<1.2) APTT 32.1 H (22.0-30.0) sec Sodium (137-145) mmol/L Potassium (3.5-5.1) mmol/L Chloride (98-107) mmol/L Carbon Dioxide (22-30) mmol/L Anion Gap mmol/L BUN (9-20) mg/dL Creatinine (0.66-1.25) mg/dL Est GFR (CKD-EPI)AfAm (>60 ml/min/1.73 sqM) Est GFR (CKD-EPI)NonAf (>60 ml/min/1.73 sqM) Glucose (74-99) mg/dL Lactic Ac Sepsis Rflx Plasma Lactic Acid Sherif (0.7-2.0) mmol/L Calcium (8.4-10.2) mg/dL Total Bilirubin (0.2-1.3) mg/dL AST (17-59) U/L ALT (4-49) U/L Alkaline Phosphatase (38-126) U/L Ammonia (<30) umol/L Troponin I 0.016 (0.000-0.034) ng/mL Total Protein (6.3-8.2) g/dL Albumin (3.5-5.0) g/dL Amylase (30-110) U/L Lipase (23-300) U/L Urine Color [place] Urine Appearance Turbid (Clear) Urine RBC 20 H (0-5) /hpf Urine WBC 162 H (0-5) /hpf Urine WBC Clumps Many H (None) /hpf Ur Squamous Epith Cells 2 (0-4) /hpf Urine Bacteria Moderate H (None) /hpf Urine Mucus Many H (None) /hpf 10/24/ Range/Units 19:29 WBC (3.8-10.6) k/uL RBC (4.30-5.90) m/uL Hgb (13.0-17.5) gm/dL Hct (39.0-53.0) % MCV (80.0-100.0) fL MCH (25.0-35.0) pg MCHC (31.0-37.0) g/dL RDW (11.5-15.5) % Plt Count (150-450) k/uL MPV Neutrophils % (Manual) % Band Neuts % (Manual) % Lymphocytes % (Manual) % Monocytes % (Manual) % Neutrophils # (Manual) (1.3-7.7) k/uL Lymphocytes # (Manual) (1.0-4.8) k/uL Monocytes # (Manual) (0-1.0) k/uL Nucleated RBCs (0-0) /100 WBC Manual Slide Review Macrocytosis Target Cells Stomatocytes PT (10.0-12.5) sec INR (<1.2) APTT (22.0-30.0) sec Sodium (137-145) mmol/L Potassium (3.5-5.1) mmol/L Chloride (98-107) mmol/L Carbon Dioxide (22-30) mmol/L Anion Gap mmol/L BUN (9-20) mg/dL Creatinine (0.66-1.25) mg/dL Est GFR (CKD-EPI)AfAm (>60 ml/min/1.73 sqM) Est GFR (CKD-EPI)NonAf (>60 ml/min/1.73 sqM) Glucose (74-99) mg/dL Lactic Ac Sepsis Rflx Y Plasma Lactic Acid Sherif (0.7-2.0) mmol/L Calcium (8.4-10.2) mg/dL Total Bilirubin (0.2-1.3) mg/dL AST (17-59) U/L ALT (4-49) U/L Alkaline Phosphatase (38-126) U/L Ammonia (<30) umol/L Troponin I (0.000-0.034) ng/mL Total Protein (6.3-8.2) g/dL Albumin (3.5-5.0) g/dL Amylase (30-110) U/L Lipase (23-300) U/L Urine Color Urine Appearance (Clear) Urine RBC (0-5) /hpf Urine WBC (0-5) /hpf Urine WBC Clumps (None) /hpf Ur Squamous Epith Cells (0-4) /hpf Urine Bacteria (None) /hpf Urine Mucus (None) /hpf - Radiology Data Radiology results: pending, report reviewed, image reviewed Disposition Clinical Impression: Alcohol use disorder, Cirrhosis, Acute renal failure, Hyperbilirubinemia, Weakness, Dehydration Disposition: ADMITTED IP TO THIS [facility] Condition: Serious Is patient prescribed a controlled substance at d/c from ED?: No Time of Disposition: 20:25
[2023-10-24 19:25] LABS: ALT 104 U/L (4-49); AST 528 U/L (17-59); African American GFR (CKD) 36 (>60 ml/min/1.73 sqM); Albumin 2.3 g/dL (3.5-5.0); Alkaline Phosphatase 161 U/L (38-126); Amylase 65 U/L (30-110); Anion Gap 11 mmol/L; Blood Urea Nitrogen 26 mg/dL (9-20); Calcium 7.9 mg/dL (8.4-10.2); Carbon Dioxide 22 mmol/L (22-30); Chloride 99 mmol/L (98-107); Glucose 128 mg/dL (74-99); Lipase 277 U/L (23-300); Non-African American GFR(CKD) 31 (>60 ml/min/1.73 sqM); Potassium 4.1 mmol/L (3.5-5.1); Sodium 132 mmol/L (137-145)
[2023-10-24 19:28] LABS: Lactic Acid, Venous 2.2 mmol/L (0.7-2.0)
[2023-10-24 19:29] LABS: Total Bilirubin 16.4 mg/dL (0.2-1.3)
[2023-10-24 19:30] LABS: Total Protein 6.1 g/dL (6.3-8.2)
[2023-10-24 19:34] LABS: INR 1.9 (<1.2); Partial Thromboplastin Time 32.1 sec (22.0-30.0); Prothrombin Time 18.9 sec (10.0-12.5)
[2023-10-24] MEDS ORDERED: NALOXONE 0.4 MG/ML 1 ML VIAL IV PRN (20:34)
[2023-10-24] MEDS ORDERED: ONDANSETRON 4 MG/2 ML VIAL IVP PRN (20:34)
[2023-10-24] MEDS: SODIUM CHLORIDE 0.9% 1,000 ML IV SCH (20:41)
[2023-10-24 20:45] LABS: Bacteria,Urine Moderate /hpf; Mucus,Urine Many /hpf; RBC,Urine 20 /hpf (0-5); Squamous Epithelial Cell,Urine 2 /hpf (0-4); WBC,Urine 162 /hpf (0-5)
[2023-10-24 20:54] LABS: Appearance,Urine Turbid (Clear); Color,Urine Orange
[2023-10-24 22:28] LABS: Band Neutrophils % 5 %; Lymphocytes # (M) 2.54 k/uL (1.0-4.8); Monocytes # (M) 0.57 k/uL (0-1.0); Neutrophils % (M) 57 %; Nucleated Red Blood Cells 0 /100 WBC (0-0); Total Cells Counted 100
[2023-10-24 22:29] LABS: Platelet Count 97 k/uL (150-450)
[2023-10-24 22:30] LABS: Stomatocytes Present; Target Cells Present
[2023-10-24] MEDS ORDERED: SODIUM CHLORIDE 0.9% 500 ML 500 ML IV ONE (23:00)
--- NOTE | 2023-10-25 00:11 | CT ---
EXAMINATION TYPE: CT abdomen pelvis wo con CT DLP: 1689.4 mGycm, Automated exposure control for dose reduction was used. DATE OF EXAM: 10/24/2023 9:12 PM COMPARISON: CLINICAL INDICATION:Male, 43 years old with history of fall; Jaundice, GFR 31. TECHNIQUE: Axial CT of the abdomen and pelvis. Sagittal and coronal reformats were created on a [employer] workstation. Contrast used: mL of , (none if empty) Oral contrast used: without Oral Contrast (none if empty) FINDINGS: Exam is limited by lack of contrast. LOWER CHEST: Mild bibasilar scarring and/or subsegmental atelectasis. Heart is upper normal in size w ith some coronary arterial calcifications suggested. No pericardial or pleural effusion. Small slidin g hiatal hernia, also contains a small amount of ascites and fat. ABDOMEN LIVER: Heterogenous with diffuse cirrhotic morphology. GALLBLADDER AND BILE DUCTS: Gallbladder appears distended measuring up to 6.2 cm transverse with a 5. 4 mm stone seen within its lumen. No significant biliary dilatation is seen. PANCREAS: Unremarkable. SPLEEN: Unremarkable. ADRENAL GLANDS: Right adrenal unremarkable. Left adrenal is difficult to see and assess, there appear to be some regional venous collaterals in the region and extending to the spleen which limits its ev aluation. Left adrenal nodules not excluded. KIDNEYS AND URETERS: No definite renal/ureteral calculi or hydronephrosis. PELVIS BLADDER: Incompletely distended but grossly unremarkable. REPRODUCTIVE: Unremarkable prostate. ABDOMEN & PELVIS STOMACH AND BOWEL: Stomach and small bowel are nondistended, no evidence of obstruction. The append ix is not seen with certainty but there is no inflammatory process seen in the pericecal region. The re is stool and gas seen throughout the colon with no focal acute process seen. PERITONEUM/RETROPERIT ONEUM: No evidence of free air. There is a moderate amount of abdominal ascites, perihepatic and nitish splenic primarily. Diffuse mesenteric haziness and stranding suggestive of edema. Numerous relatively small venous collaterals are seen in the abdomen. A moderate amount of free fluid is also seen withi n the lower abdomen and pelvis. VASCULATURE: Moderate to severe atherosclerotic calcifications are present throughout the abdominal a isauro and its branches. Calcifications at the origins of the celiac, superior mesenteric and proximal renal arteries bilaterally, could potentially result in significant stenoses. There is a saccular ane urysm of the infrarenal aorta extending anterolaterally on the right which measures 1.5 x 1.1 x 1.4 c m. LYMPH NODES: No gross evidence for lymphadenopathy. SOFT TISSUE/ABDOMINAL WALL: Small fat-containing right inguinal hernia and tiny fat-containing umbili petra hernia. There is moderate diffuse body wall edema suggesting anasarca. MUSCULOSKELETAL: No acute osseous abnormalities. Moderate disc degeneration changes are present throu ghout the thoracolumbar spine. Mild lumbar scoliotic curve. IMPRESSION: 1. Cirrhotic hepatic morphology. 2. Moderate volume of abdominopelvic ascites and diffuse mesenteric edema. 3. Moderate diffuse body wall edema suggesting anasarca. 4. Distended gallbladder with 5.4 mm intraluminal gallstone. If concern for development of acute cho lecystitis, follow-up ultrasound or HIDA scan could be obtained. 5. Diffuse atherosclerotic calcification of the aorta and branches. 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 6. Small sliding hiatal hernia. 7. Other chronic and likely incidental findings, as described above.
--- NOTE | 2023-10-25 00:21 | US ---
EXAMINATION TYPE: US gallbladder DATE OF EXAM: 10/24/2023 COMPARISON: Same day CT CLINICAL INDICATION: Male, 43 years old with history of fall; jaundice and abd pain TECHNIQUE: Multiple sonographic images of the right upper quadrant are obtained. FINDINGS: EXAM MEASUREMENTS: Liver Length: 16.1 cm Gallbladder Wall: 0.78 cm CBD: 0.78 cm Right Kidney: 11.3 x 6.6 x 6.4 cm VOCATIONAL TRAINING INSTRUCTOR NOTES: Pancreas: Obscured by bowel gas Liver: Diffusely heterogeneous with a lobulated contour and possible numerous micronodules. Gallbladder: Hydropic with wall thickening. Hyperechoic focus seen measuring 0.8cm within the gallbl adder consistent with a gallstone Evidence for sonographic Cardona's sign: No CBD: wnl Right Kidney: wnl Moderate amount of ascites seen throughout the abdomen. IMPRESSION: 1. Cirrhotic hepatic morphology. 2. Moderate ascites. 3. Distended gallbladder with cholelithiasis. The wall appears thickened however this could be cause d or exacerbated by the ascites. The sonographic Cardona's sign was reportedly absent. If there is per sistent clinical concern HIDA scan may be of benefit. 4. Pancreas obscured by bowel gas.
[2023-10-25] MEDS ORDERED: SODIUM CHLORIDE 0.9% 1,000 ML IV ONE (02:40)
[2023-10-25] MEDS: MORPHINE SULFATE 4 MG/ML SYRINGE IV PRN (04:06)
[2023-10-25] MEDS ORDERED: THIAMINE 100 MG/ML 2 ML VIAL IM STA (05:34)
[2023-10-25] MEDS ORDERED: LORazepam 2 MG/ML INJ IV PRN ×3 (05:34)
[2023-10-25] MEDS: NOREPINEPHRINE 4 MG in SODIUM CHLORIDE 0.9% 250 ML IV SCH ×2 (06:19→17:51)
--- NOTE | 2023-10-25 06:34 | P.CNPUL ---
History of Present Illness Consult date: 10/25/23 Requesting physician: Ady Campbell Reason for consult: other (ICU management, hypotension) Chief complaint: Jaundice, low blood pressures History of present illness: I am seeing this patient in new consultation in the emergency room, room 5, after being sent in from his pain clinic. The patient was jaundiced and reportedly had low blood pressures in the office. Patient is a 43-year-old ite male with past medical history significant for alcoholism, polysubstance abuse, hypertension, hyperlipidemia, chronic pain, incarceration. Patient is seen in the pain clinic for chronic lower back pain. Patient also has history of polysubstance abuse. His last alcoholic drink was about 1 week ago. States he usually drinks between 12-18, 12 ounce beers per day. He was noted to be jaundiced and reportedly had low blood pressures while at the office. Earlier in the week he reported some abdominal pain. States his urine has been orange. Denies any change in his bowel movements or pale stools. No nausea, vomiting or diarrhea. Denies fevers. LFTs were elevated with a 2>1 ratio. AST 528, ALT 104, ALP 161. Total bilirubin elevated at 16.4. Ammonia 14. Amylase and lipase not elevated. Gallbladder ultrasound demonstrated cirrhotic liver, moderate ascites, distended gallbladder with cholelithiasis negative sonographic Cardona sign. Follow-up CT abdomen redemonstrated cirrhotic hepatic morphology, moderate abdominal pelvic ascites and mesenteric edema, moderate diffuse body wall edema suggestive of anasarca, distended gallbladder with 5.4 mm intraluminal gallstone. Small infrarenal saccular aneurysm. Small sliding hiatal hernia. Currently, the patient is lying in bed, on room air, in no acute distress. Abdomen is soft and nonpainful. Cardona sign negative. Blood pres sure is hypotensive despite 3 L normal saline bolus. Patient is going to be started on norepinephrine. CBC: WBC count 8.2, hemoglobin 12.3, hematocrit 37.2, platelets 97. Coagulation profile: INR of 1.9 and a PTT of 32.1. Patient denies any bleeding. BMP: Sodium 132, potassium 4.1, chloride 99, serum bicarb 22, BUN 26, creatinine 2.47, glucose 128. Lactic acid 2.2 and is down to 1.9. Troponin 0.016. Afebrile. Patient will be admitted to the intensive care unit. Review of Systems REVIEW OF SYSTEMS: CONSTITUTIONAL: Denies any recent significant weight loss or weight gain. EYES: Denies change in vision. EARS, NOSE, MOUTH, THROAT: Denies headaches, denies sore throat. CARDIOVASCULAR: Denies chest pain, palpitations or syncopal episodes. RESPIRATORY: Denies shortness of breath, cough, congestion or hemoptysis. GASTROINTESTINAL: Denies change in appetite, nausea and vomiting, or diarrhea . Did have some abdominal pain earlier in the week. GENITOURINARY: Denies hematuria, denies infections. MUSKULOSKELETAL: Denies pain, denies swelling. INTEGUMENTARY: Admits yellow skin. NEUROLOGICAL: Denies recent memory loss, no recent seizure activity. PSYCHIATRIC: Denies anxiety, denies depression. HEMATOLOGIC/LYMPHATIC: Denies anemia, denies enlarged lymph node Past Medical History Past Medical History: Chest Pain / Angina, Hyperlipidemia, Hypertension Additional Past Medical History / Comment(s): "high liver enzymes",lower back pain, degenerative disk disease,herniated disk, History of Any Multi-Drug Resistant Organisms: None Reported Past Surgical History: Orthopedic Surgery Additional Past Surgical History / Comment(s): rt hand surgery, oral surgery Past Anesthesia/Blood Transfusion Reactions: No Reported Reaction Past Psychological History: Anxiety Smoking Status: Current every day smoker Past Alcohol Use History: Daily Past Drug Use History: Marijuana, Methamphetamine - Past Family History Father Family Medical History: Cancer Medications and Allergies Home Medications Medication Instructions Recorded Confirmed Type Hydrocodone/Acetaminophen [[place] 1 tab PO TID PRN 12/06/18 10/24/23 History 10-325] Gabapentin [Neurontin] 300 mg PO TID 04/28/20 10/24/23 History lisinopriL [Zestril] 10 mg PO DAILY 08/31/21 10/24/23 History Atorvastatin [Lipitor] 20 mg PO DAILY 10/24/23 10/24/23 History Ibuprofen [Motrin] 800 mg PO Q8H PRN 10/24/23 10/24/23 History Metoprolol Succinate (ER) [Toprol 50 mg PO DAILY 10/24/23 10/24/23 History Xl] Allergies Allergy/AdvReac Type Severity Reaction Status Date / Time Penicillins Allergy Unknown Verified 10/24/23 21:10 Childhood Physical Exam Vitals: Vital Signs Temp Pulse Resp BP Pulse Ox 10/25/23 05:10 73 16 76/27 97 10/25/23 05:00 74/29 10/25/23 04:00 86/35 10/25/23 03:00 102/41 98 10/25/23 02:00 75/48 96 10/25/23 01:30 74/45 95 10/25/23 01:00 94/39 96 10/25/23 00:30 86/36 97 10/25/23 00:00 93/49 97 10/24/23 23:43 76/31 96 10/24/23 23:30 80/34 99 10/24/23 23:00 90/42 99 10/24/23 22:30 70/34 98 10/24/23 22:00 93/45 98 10/24/23 21:54 68 18 93/45 98 10/24/23 21:00 102/51 96 10/24/23 20:54 98 F 65 14 102/51 100 10/24/23 20:00 105/50 100 10/24/23 19:00 76/43 99 10/24/23 18:49 64 16 76/40 99 10/24/23 18:37 94 L 10/24/23 18:23 98.3 F 77 18 175/145 98 Intake and Output 10/24/23 10/24/23 10/25/23 14:59 22:59 06:59 Other: Voiding Method Toilet Weight 122.47 kg GENERAL EXAM: Alert, 43-year-old white male, jaundice, comfortable in no apparent distress. HEAD: Normocephalic and atraumatic EYES: Normal reaction of pupils, equal size. Icteric sclera NOSE: Clear with pink turbinates. THROAT: No erythema or exudates. NECK: No masses, no JVD. CHEST: No chest wall deformity. LUNGS: Equal air entry with no crackles, wheeze, rhonchi or dullness. On room air. No conversational dyspnea or accessory muscle use.. CVS: S1 and S2 normal with no audible murmur, regular rhythm. No extra heart sounds ABDOMEN: Obese/large abdomen, negative Cardona maneuver, no guarding or rigidity SPINE: No scoliosis or deformity SKIN: Jaundice CENTRAL NERVOUS SYSTEM: No focal deficits, tone is normal in all 4 extremities. EXTREMITIES: There is no peripheral edema, clubbing, or cyanosis. Peripheral pulses are intact. Results - Laboratory Findings CBC and BMP: 10/24/23 18:48 10/24/23 18:48 PT/INR, D-dimer PT 18.9 sec (10.0-12.5) H 10/24/23 18:49 INR 1.9 (<1.2) H 10/24/23 18:49 Abnormal lab findings: Abnormal Labs 10/24/23 10/24/23 10/24/23 18:48 18:48 18:48 RBC 3.32 L Hgb 12.3 L Hct 37.2 L MCV 112.2 H MCH 36.9 H RDW 16.0 H Plt Count 97 L Macrocytosis Marked A PT INR APTT Sodium 132 L BUN 26 H Creatinine 2.47 H Glucose 128 H Plasma Lactic Acid Sherif 2.2 H* Calcium 7.9 L Total Bilirubin 16.4 H* AST 528 H ALT 104 H Alkaline Phosphatase 161 H Total Protein 6.1 L Albumin 2.3 L Urine RBC Urine WBC Urine WBC Clumps Urine Bacteria Urine Mucus 10/24/23 10/24/23 18:49 18:53 RBC Hgb Hct MCV MCH RDW Plt Count Macrocytosis PT 18.9 H INR 1.9 H APTT 32.1 H Sodium BUN Creatinine Glucose Plasma Lactic Acid Sherif Calcium Total Bilirubin AST ALT Alkaline Phosphatase Total Protein Albumin Urine RBC 20 H Urine WBC 162 H Urine WBC Clumps Many H Urine Bacteria Moderate H Urine Mucus Many H Assessment and Plan Assessment: Hypotension and shock, refractory to fluid replacement, now requiring vasopressors Hyperbilirubinemia, rule out acute cholecystitis/cholangitis/SBP. Gallbladder ultrasound demonstrated cirrhotic liver, moderate ascites, distended gallbladder with cholelithiasis, and negative sonographic Cardona sign. Follow-up CT abdomen redemonstrated cirrhotic hepatic morphology, moderate abdominal pelvic ascites and mesenteric edema, moderate diffuse body wall edema suggestive of anasarca, distended gallbladder with 5.4 mm intraluminal gallstone, no significant biliary dilation seen. There were other incidental findings. Alcoholic liver cirrhosis and ascites Acute kidney injury, hepatorenal syndrome Alcoholism, last drink reportedly last week History of polysubstance abuse Hyperlipidemia History of hypertension Thrombocytopenia, related to alcoholism Coagulopathy, related alcoholic liver disease Hypoalbuminemia Chronic pain History of incarceration Plan: Patient's medications, labs and imaging reviewed. Patient remains hypotensive despite 3 L normal saline bolus. Patient will be started on norepinephrine for vasopressor support. Empiric antibiotics added. Obtain blood cultures. Patient remains afebrile. Abdomen clinically does not appear acute, however, may consider HIDA scan. GI consult placed. Add CIWA protocol. Vitamin B1 supplementation. Obtain acute hepatitis panel. Check UA. Patient will be admitted to the intensive care unit. I have personally seen and examined the patient, performed the documentation and the assessment and plan as written. Number of minutes spent on the visit:20 Time with Patient: Greater than 30
[2023-10-25] MEDS ORDERED: MIDODRINE 5 MG TAB PO SCH (07:30)
[2023-10-25] MEDS: SODIUM CHLORIDE 0.9% 1,000 ML IV SCH ×3 (08:30→21:29)
[2023-10-25] MEDS: ALBUMIN HUMAN 25% 50 ML in EMPTY BAG 1 BAG IVPB SCH ×2 (08:38→10:18)
[2023-10-25 08:45] LABS: Magnesium 1.9 mg/dL (1.5-2.4); Phosphorus 2.8 mg/dL (2.4-5.1)
[2023-10-25 08:51] LABS: ALT 93 U/L (10-49); AST 415 U/L (14-35); Albumin 1.9 g/dL (3.8-4.9); Albumin/Globulin Ratio 0.73 Ratio (1.60-3.17); Alkaline Phosphatase 138 U/L (41-126); BUN/Creat Ratio 14.11 Ratio (12.00-20.00); Blood Urea Nitrogen 25.4 mg/dL (9.0-27.0); Calcium 7.2 mg/dL (8.7-10.3); Chloride 102 mmol/L (96-109); Globulin 2.6 g/dL (1.6-3.3); Glucose 128 mg/dL (70-110); Potassium 3.7 mmol/L (3.5-5.5); Sodium 131 mmol/L (135-145); Total Bilirubin 12.5 mg/dL (0.3-1.2); Total Protein 4.5 g/dL (6.2-8.2)
[2023-10-25 10:37] LABS: Hepatitis A Antibody IgM Nonreactive; Hepatitis B Core IgM Nonreactive; Hepatitis B Surface Antigen Nonreactive; Hepatitis C IgG Antibody Nonreactive
[2023-10-25 10:49] LABS: Basophils # (A) 0.06 X 10*3/uL (0.00-0.10); Basophils % (A) 0.8 %; Eosinophils # (A) 0.06 X 10*3/uL (0.04-0.35); Eosinophils % (A) 0.8 %; HCT 30.2 % (39.6-50.0); HGB 10.8 g/dL (13.0-17.0); Lymphocytes # (A) 1.91 X 10*3/uL (0.90-5.00); Lymphocytes % (A) 25.2 %; MCH 36.2 pg (27.0-32.0); MCHC 35.8 g/dL (32.0-37.0); MCV 101.3 FL (80.0-97.0); Macrocytosis (M) 2+; Mean Platelet Volume 14.3 FL (9.5-12.2); Monocytes # (A) 1.73 X 10*3/uL (0.20-1.00); Monocytes % (A) 22.8 %; NRBC Per 100 WBC 0 X 10*3/uL (0.00-0.01); Neutrophils # (A) 3.81 X 10*3/uL (1.80-7.70); Neutrophils % (A) 50.1 %; Platelet Count 82 X 10*3/uL (140-440); RBC 2.98 X 10*6/uL (4.40-5.60); RDW 17.8 % (11.5-14.5); Target Cells 2+; WBC 7.59 X 10*3/uL (4.50-10.00)
--- NOTE | 2023-10-25 11:44 | P.CONS ---
History of Present Illness - Reason for Consult Consult date: 10/25/23 Cirrhosis Requesting physician: Bernabe Torres - Chief Complaint Hypo-tension, jaundice - History of Present Illness This is a pleasant 43-year-old white male who was sent into the emergency department by his pain specialist for concerns of jaundice and hypotension. Patient has a long-standing history of alcoholism. He admits to starting drinking as a teenager and was drinking daily up until about a year ago states that he was mixing between beer and hard liquor. States that he had quit drinking for a short period of time then started drinking again and was drinking about 12 beers a day and just recently quit again. Patient was not forthcoming when last day of alcohol was. He denies any previous known history of liver cirrhosis. States that he was told in the past that he had some brain shrinking due to his drinking. No previous history of ascites. Patient was hypotensive on admission with acute kidney injury and acute alcoholic hepatitis. Patient admitted for the ICU however currently in the emergency department waiting for a bed. He is alert and oriented 3. Denies any abdominal pain, nausea or vomiting. States his urine has been dark and orange for about 1 week's duration. I had a CT of the abdomen and pelvis on reporting cirrhosis of the liver, ascites. Gastroenterology was consulted for cirrhosis. Admitting labs: WBC 8.2 hemoglobin 12.3 hematocrit 37 platelet count 97,000 INR 1.9 sodium 132 potassium 4.1 BUN 26 creatinine 2.47 glucose 128 lactic acid 2.2 total bilirubin of 16.4 AST 528 ALT 104 alkaline phosphatase 161 amylase 65 lipase 277 hepatitis panel nonreactive Review of Systems REVIEW OF SYSTEMS: CARDIOPULMONARY: No chest pain, shortness of breath. Gastrointestinal: No abdominal pain. No nausea or vomiting. No hematemesis, coffee-ground emesis. No rectal bleeding, or melena. GENITOURINARY: No dysuria or hematuria. Decreased urine output. Dark urine. MUSCULOSKELETAL: Reports normal range of motion. SKIN: No rashes. Jaundice or last 1 week duration. ENDOCRINE: No chills, fevers. No excessive weight gain or loss. No polydipsia or polyuria. PSYCHIATRIC: Unremarkable. NEUROLOGY: No change in mental status. Denies dizziness, headache. ENT: Vision unremarkable. CONSTITUTIONAL: No recent weight loss. No fever, chills, night sweats. Past Medical History Past Medical History: Chest Pain / Angina, Hyperlipidemia, Hypertension Additional Past Medical History / Comment(s): "high liver enzymes",lower back pain, degenerative disk disease,herniated disk, History of Any Multi-Drug Resistant Organisms: None Reported Past Surgical History: Orthopedic Surgery Additional Past Surgical History / Comment(s): rt hand surgery, oral surgery Past Anesthesia/Blood Transfusion Reactions: No Reported Reaction Past Psychological History: Anxiety Smoking Status: Current every day smoker Past Alcohol Use History: Daily Past Drug Use History: Marijuana, Methamphetamine - Past Family History Father Family Medical History: Cancer Medications and Allergies Home Medications Medication Instructions Recorded Confirmed Type Hydrocodone/Acetaminophen [[place] 1 tab PO TID PRN 12/06/18 10/24/23 History 10-325] Gabapentin [Neurontin] 300 mg PO TID 04/28/20 10/24/23 History lisinopriL [Zestril] 10 mg PO DAILY 08/31/21 10/24/23 History Atorvastatin [Lipitor] 20 mg PO DAILY 10/24/23 10/24/23 History Ibuprofen [Motrin] 800 mg PO Q8H PRN 10/24/23 10/24/23 History Metoprolol Succinate (ER) [Toprol 50 mg PO DAILY 10/24/23 10/24/23 History Xl] Allergies Allergy/AdvReac Type Severity Reaction Status Date / Time Penicillins Allergy Unknown Verified 10/24/23 21:10 Childhood Physical Exam Vitals: Vital Signs Temp Pulse Resp BP Pulse Ox 10/25/23 07:00 98.2 F 66 16 78/41 97 10/25/23 05:10 73 16 76/27 97 10/25/23 05:00 74/29 10/25/23 04:00 86/35 10/25/23 03:00 102/41 98 10/25/23 02:00 75/48 96 10/25/23 01:30 74/45 95 10/25/23 01:00 94/39 96 10/25/23 00:30 86/36 97 10/25/23 00:00 93/49 97 10/24/23 23:43 76/31 96 10/24/23 23:30 80/34 99 10/24/23 23:00 90/42 99 10/24/23 22:30 70/34 98 10/24/23 22:00 93/45 98 10/24/23 21:54 68 18 93/45 98 10/24/23 21:00 102/51 96 10/24/23 20:54 98 F 65 14 102/51 100 10/24/23 20:00 105/50 100 10/24/23 19:00 76/43 99 10/24/23 18:49 64 16 76/40 99 10/24/23 18:37 94 L 10/24/23 18:23 98.3 F 77 18 175/145 98 Intake and Output 10/24/23 10/25/23 10/25/23 22:59 06:59 14:59 Other: Voiding Method Toilet Weight 122.47 kg General appearance: The patient is alert, oriented, appears in no acute distress. HET: Head is normocephalic and atraumatic. Conjunctiva pink. Sclera icteric. Neck: Supple without lymphadenopathy. Trachea midline. Heart: Regular. Lungs: Equal expansion, normal respiratory effort. Abdomen: Soft, nontender, nondistended. No guarding or rigidity. Skin: No rashes. Jaundice. Extremities: Normal skin color and turgor. No pedal edema. Neurological: No focal deficits. Alert and oriented x3. Results CBC & Chem 7: 10/25/23 04:21 10/25/23 04:21 Labs: Abnormal Lab Results - Last 24 Hours (Table) 10/24/23 10/24/23 10/24/23 Range/Units 18:48 18:48 18:48 RBC 3.32 L (4.30-5.90) m/uL Hgb 12.3 L (13.0-17.5) gm/dL Hct 37.2 L (39.0-53.0) % MCV 112.2 H (80.0-100.0) fL MCH 36.9 H (25.0-35.0) pg RDW 16.0 H (11.5-15.5) % Plt Count 97 L (150-450) k/uL Macrocytosis Marked A PT (10.0-12.5) sec INR (<1.2) APTT (22.0-30.0) sec Sodium 132 L (137-145) mmol/L BUN 26 H (9-20) mg/dL Creatinine 2.47 H (0.66-1.25) mg/dL Glucose 128 H (74-99) mg/dL Plasma Lactic Acid Sherif 2.2 H* (0.7-2.0) mmol/L Calcium 7.9 L (8.4-10.2) mg/dL Total Bilirubin 16.4 H* (0.2-1.3) mg/dL AST 528 H (17-59) U/L ALT 104 H (4-49) U/L Alkaline Phosphatase 161 H (38-126) U/L Total Protein 6.1 L (6.3-8.2) g/dL Albumin 2.3 L (3.5-5.0) g/dL Urine RBC (0-5) /hpf Urine WBC (0-5) /hpf Urine WBC Clumps (None) /hpf Urine Bacteria (None) /hpf Urine Mucus (None) /hpf 10/24/23 10/24/23 Range/Units 18:49 18:53 RBC (4.30-5.90) m/uL Hgb (13.0-17.5) gm/dL Hct (39.0-53.0) % MCV (80.0-100.0) fL MCH (25.0-35.0) pg RDW (11.5-15.5) % Plt Count (150-450) k/uL Macrocytosis PT 18.9 H (10.0-12.5) sec INR 1.9 H (<1.2) APTT 32.1 H (22.0-30.0) sec Sodium (137-145) mmol/L BUN (9-20) mg/dL Creatinine (0.66-1.25) mg/dL Glucose (74-99) mg/dL Plasma Lactic Acid Sherif (0.7-2.0) mmol/L Calcium (8.4-10.2) mg/dL Total Bilirubin (0.2-1.3) mg/dL AST (17-59) U/L ALT (4-49) U/L Alkaline Phosphatase (38-126) U/L Total Protein (6.3-8.2) g/dL Albumin (3.5-5.0) g/dL Urine RBC 20 H (0-5) /hpf Urine WBC 162 H (0-5) /hpf Urine WBC Clumps Many H (None) /hpf Urine Bacteria Moderate H (None) /hpf Urine Mucus Many H (None) /hpf Comments: Gallbladder ultrasound report cirrhotic hepatic morphology. Moderate ascites. Distended gallbladder with cholelithiasis. Wall appears thickened however this could be caused or exacerbated by the ascites. Sonographic Cardona's sign was reportedly absent. If there is persistent clinical concern HIDA scan may be of benefit. Pancreas obscured by bowel gas. CT abdomen and pelvis without contrast report cirrhotic hepatic morphology. Moderate volume of abdominal pelvic ascites and diffuse mesenteric edema. Moderate diffuse body wall edema suggesting anasarca. Distended gallbladder with 5.4 mm intraluminal gallstone. If concern for development of acute cholecystitis follow-up ultrasound or HIDA scan could be obtained. Diffuse atherosclerotic calcification of the aorta and branches. Saccular aneurysm of the infrarenal aorta measures 1.5 x 1.1 x 1.4 cm. Small sliding hiatal hernia. Other chronic and likely incidental findings as described above. Assessment and Plan (1) Cirrhosis Narrative/Plan: 43-year-old gentleman who was sent in by his pain specialist for concerns of hypotension, jaundice, and decreased urine output. Patient long-standing history of alcohol abuse admitted for hypotension, acute renal failure and diagnosed with liver cirrhosis. No previous history. Hepatitis panel was nonreactive. Just recently quit drinking. This is all likely due to underlying alcohol abuse for the last 30 years. Ammonia level today is 64. Will start lactulose. Discussed with patient importance of alcohol abstinence. Paracentesis ordered therapeutic as well as for fluid studies. Current Visit: Yes Status: Acute Code(s): K74.60 - UNSPECIFIED CIRRHOSIS OF LIVER SNOMED Code(s): 88737427 (2) Alcohol abuse Current Visit: Yes Status: Acute Code(s): F10.10 - ALCOHOL ABUSE, UNCOMPLIC ATED SNOMED Code(s): 38826034 (3) Acute alcoholic hepatitis Current Visit: Yes Status: Acute Code(s): K70.10 - ALCOHOLIC HEPATITIS WITHOUT ASCITES SNOMED Code(s): 0682148 (4) Hypotension Current Visit: Yes Status: Acute Code(s): I95.9 - HYPOTENSION, UNSPECIFIED SNOMED Code(s): 76378812 (5) Acute renal failure Current Visit: Yes Status: Acute Code(s): N17.9 - ACUTE KIDNEY FAILURE, UNSPECIFIED SNOMED Code(s): 38078403 Plan: 1. Continue symptomatic and supportive care 2. Ammonia level ordered and reviewed 3. Low sodium diet 4. Add lactulose 30 g 3 times a day, titrate to have 3-4 bowel movements daily 5. Appreciate recommendations from nephrology, patient will eventually need diuretics for ascites 6. Daily CBC, INR, CMP 7. Consult to radiology for paracentesis with fluid studies, this can be done tomorrow or the next day 8. Discussed with patient importance of alcohol abstinence 9. The rest of medical management per primary medical team and department of mathematics chair. Thank you for this consultation, we will continue to follow. Dr. Sloane German I agree with the dictator's note, documented as a scribe by Carol Clinton.
[2023-10-25] MEDS: LACTULOSE 20 GM/30 ML CUP PO SCH ×3 (12:06→21:28)
--- NOTE | 2023-10-25 13:15 | P.HPIM ---
History of Present Illness H&P Date: 10/25/23 Chief Complaint: hypotension and ascites This is a 43-year-old male known to our nurse practitioner in the practice. He is noncompiant and has not been seen in the past 6 months. He is an alcoholic and has been drinking 30+ years. Indicates he's quit drinking off and on. He was seen by Dr. Jensen, his pain management, physician, who found his urine to beDark and his blood pressure very low at that time. He was directed in the emergency room. He was found to have significant abnormal laboratory studies With alcoholic cirrhosis, ascites, and acute kidney injury mostly up had a renal syndrome. There is a noted coagulopathy on his labs as well. Currently, the patient is resting comfortably is on pressors for blood pressure. Denies any lightheaded, dizziness, other than standing. No chest pain pressure, short breath, no nausea or vomiting this time no diarrhea or consti patio Review of Systems All systems: negative Past Medical History Past Medical History: Chest Pain / Angina, Hyperlipidemia, Hypertension Additional Past Medical History / Comment(s): "high liver enzymes",lower back pain, degenerative disk disease,herniated disk, History of Any Multi-Drug Resistant Organisms: None Reported Past Surgical History: Orthopedic Surgery Additional Past Surgical History / Comment(s): rt hand surgery, oral surgery Past Anesthesia/Blood Transfusion Reactions: No Reported Reaction Past Psychological History: Anxiety Smoking Status: Current every day smoker Past Alcohol Use History: Daily Past Drug Use History: Marijuana, Methamphetamine - Past Family History Father Family Medical History: Cancer Medications and Allergies Home Medications Medication Instructions Recorded Confirmed Type Hydrocodone/Acetaminophen [[place] 1 tab PO TID PRN 12/06/18 10/24/23 History 10-325] Gabapentin [Neurontin] 300 mg PO TID 04/28/20 10/24/23 History lisinopriL [Zestril] 10 mg PO DAILY 08/31/21 10/24/23 History Atorvastatin [Lipitor] 20 mg PO DAILY 10/24/23 10/24/23 History Ibuprofen [Motrin] 800 mg PO Q8H PRN 10/24/23 10/24/23 History Metoprolol Succinate (ER) [Toprol 50 mg PO DAILY 10/24/23 10/24/23 History Xl] Allergies Allergy/AdvReac Type Severity Reaction Status Date / Time Penicillins Allergy Unknown Verified 10/24/23 21:10 Childhood Physical Exam Vitals: Vital Signs Temp Pulse Resp BP Pulse Ox 10/25/23 12:55 98.4 F 71 18 104/47 97 10/25/23 10:15 71 16 78/59 95 10/25/23 09:45 72 18 87/54 99 10/25/23 08:14 74 18 71/33 97 10/25/23 08:03 68 18 82/41 98 10/25/23 07:00 98.2 F 66 16 78/41 97 10/25/23 05:10 73 16 76/27 97 10/25/23 05:00 74/29 10/25/23 04:00 86/35 10/25/23 03:00 102/41 98 10/25/23 02:00 75/48 96 10/25/23 01:30 74/45 95 10/25/23 01:00 94/39 96 10/25/23 00:30 86/36 97 10/25/23 00:00 93/49 97 10/24/23 23:43 76/31 96 10/24/23 23:30 80/34 99 10/24/23 23:00 90/42 99 10/24/23 22:30 70/34 98 10/24/23 22:00 93/45 98 10/24/23 21:54 68 18 93/45 98 10/24/23 21:00 102/51 96 10/24/23 20:54 98 F 65 14 102/51 100 10/24/23 20:00 105/50 100 10/24/23 19:00 76/43 99 10/24/23 18:49 64 16 76/40 99 10/24/23 18:37 94 L 10/24/23 18:23 98.3 F 77 18 175/145 98 Intake and Output 10/24/23 10/25/23 10/25/23 22:59 06:59 14:59 Intake Total 27.763 Balance 27.763 Intake: Intake, IV Titration 27.763 Amount Norepinephrine 4 mg In 27.763 Sodium Chloride 0.9% 250 ml @ 0.03 MCG/KG/MIN 13. 998 mls/hr IV .Q18H9M [facility] [place] Rx#:[id number] Other: Voiding Method Toilet Weight 122.47 kg GENERAL: Alert, white male with jaundice, in no apparent distress. HEAD: Normocephalic and atraumatic HEENT: PERRL,EOMI Icteric sclera, oropharynx normal NECK: No masses, no JVD. LUNGS: CTAB CVS: S1 S2 normal RRR with no murmur, ABDOMEN: Obese no guarding or rigidity, no RUQ pain, mild LUQ pain to palpation, distended SKIN: Jaundice NEURO: No focal deficits,AAOX3 EXTREMITIES: There is no peripheral edema, clubbing, or cyanosis. Peripheral pulses are intact. Results CBC & Chem 7: 10/25/23 04:21 10/25/23 04:21 Labs: Abnormal Lab Results - Last 24 Hours (Table) 10/24/23 10/24/23 10/24/23 Range/Units 18:48 18:48 18:48 RBC 3.32 L (4.30-5.90) m/uL Hgb 12.3 L (13.0-17.5) gm/dL Hct 37.2 L (39.0-53.0) % MCV 112.2 H (80.0-100.0) fL MCH 36.9 H (25.0-35.0) pg RDW 16.0 H (11.5-15.5) % Plt Count 97 L (150-450) k/uL MPV (9.5-12.2) FL Monocytes # (0.20-1.00) X 10*3/uL Macrocytosis Marked A Macrocytosis (manual) Target Cells PT (10.0-12.5) sec INR (<1.2) APTT (22.0-30.0) sec Sodium 132 L (137-145) mmol/L Carbon Dioxide (21.6-31.8) mmol/L BUN 26 H (9-20) mg/dL Creatinine 2.47 H (0.66-1.25) mg/dL Est GFR (CKD-EPI) (>=60) Glucose 128 H (74-99) mg/dL Plasma Lactic Acid Sherif 2.2 H* (0.7-2.0) mmol/L Calcium 7.9 L (8.4-10.2) mg/dL Total Bilirubin 16.4 H* (0.2-1.3) mg/dL AST 528 H (17-59) U/L ALT 104 H (4-49) U/L Alkaline Phosphatase 161 H (38-126) U/L Ammonia (<30) umol/L Total Protein 6.1 L (6.3-8.2) g/dL Albumin 2.3 L (3.5-5.0) g/dL Albumin/Globulin Ratio (1.60-3.17) Ratio Procalcitonin (0.02-0.09) ng/mL Urine RBC (0-5) /hpf Urine WBC (0-5) /hpf Urine WBC Clumps (None) /hpf Urine Bacteria (None) /hpf Urine Mucus (None) /hpf 10/24/23 10/24/23 10/25/23 Range/Units 18:49 18:53 04:21 RBC 2.98 L (4.30-5.90) m/uL Hgb 10.8 L (13.0-17.5) gm/dL Hct 30.2 L (39.0-53.0) % MCV 101.3 H (80.0-100.0) fL MCH 36.2 H (25.0-35.0) pg RDW 17.8 H (11.5-15.5) % Plt Count 82 L (150-450) k/uL MPV 14.3 H (9.5-12.2) FL Monocytes # 1.73 H (0.20-1.00) X 10*3/uL Macrocytosis Macrocytosis (manual) 2+ A Target Cells 2+ A PT 18.9 H (10.0-12.5) sec INR 1.9 H (<1.2) APTT 32.1 H (22.0-30.0) sec Sodium (137-145) mmol/L Carbon Dioxide (21.6-31.8) mmol/L BUN (9-20) mg/dL Creatinine (0.66-1.25) mg/dL Est GFR (CKD-EPI) (>=60) Glucose (74-99) mg/dL Plasma Lactic Acid Sherif (0.7-2.0) mmol/L Calcium (8.4-10.2) mg/dL Total Bilirubin (0.2-1.3) mg/dL AST (17-59) U/L ALT (4-49) U/L Alkaline Phosphatase (38-126) U/L Ammonia (<30) umol/L Total Protein (6.3-8.2) g/dL Albumin (3.5-5.0) g/dL Albumin/Globulin Ratio (1.60-3.17) Ratio Procalcitonin (0.02-0.09) ng/mL Urine RBC 20 H (0-5) /hpf Urine WBC 162 H (0-5) /hpf Urine WBC Clumps Many H (None) /hpf Urine Bacteria Moderate H (None) /hpf Urine Mucus Many H (None) /hpf 10/25/23 10/25/23 10/25/23 Range/Units 04:21 04:21 08:25 RBC (4.30-5.90) m/uL Hgb (13.0-17.5) gm/dL Hct (39.0-53.0) % MCV (80.0-100.0) fL MCH (25.0-35.0) pg RDW (11.5-15.5) % Plt Count (150-450) k/uL MPV (9.5-12.2) FL Monocytes # (0.20-1.00) X 10*3/uL Macrocytosis Macrocytosis (manual) Target Cells PT (10.0-12.5) sec INR (<1.2) APTT (22.0-30.0) sec Sodium 131 L (137-145) mmol/L Carbon Dioxide 21.0 L (21.6-31.8) mmol/L BUN (9-20) mg/dL Creatinine 1.8 H (0.66-1.25) mg/dL Est GFR (CKD-EPI) 47 L (>=60) Glucose 128 H (74-99) mg/dL Plasma Lactic Acid Sherif (0.7-2.0) mmol/L Calcium 7.2 L (8.4-10.2) mg/dL Total Bilirubin 12.5 H (0.2-1.3) mg/dL AST 415 H (17-59) U/L ALT 93 H (4-49) U/L Alkaline Phosphatase 138 H (38-126) U/L Ammonia 67 H (<30) umol/L Total Protein 4.5 L (6.3-8.2) g/dL Albumin 1.9 L (3.5-5.0) g/dL Albumin/Globulin Ratio 0.73 L (1.60-3.17) Ratio Procalcitonin 0.44 H (0.02-0.09) ng/mL Urine RBC (0-5) /hpf Urine WBC (0-5) /hpf Urine WBC Clumps (None) /hpf Urine Bacteria (None) /hpf Urine Mucus (None) /hpf CT scan - abdomen: report reviewed Thrombosis Risk Factor Assmnt - DVT/VTE Prophylaxis DVT/VTE Prophylaxis: Contraindicated - See note (coagulopathy) Assessment and Plan (1) Mixed hyperlipidemia Current Visit: Yes Status: Acute Code(s): E78.2 - MIXED HYPERLIPIDEMIA SNOMED Code(s): 716424124 (2) Polysubstance (excluding opioids) dependence Current Visit: Yes Status: Acute Code(s): F19.20 - OTHER PSYCHOACTIVE SUBSTANCE DEPENDENCE, UNCOMPLICATED SNOMED Code(s): 76625879 (3) Thrombocytopenia Current Visit: Yes Status: Acute Code(s): D69.6 - THROMBOCYTOPENIA, UNSPECIFIED SNOMED Code(s): 903732363 (4) Macrocytic anemia Current Visit: Yes Status: Acute Code(s): D53.9 - NUTRITIONAL ANEMIA, UNSPECIFIED SNOMED Code(s): 83870475 (5) SIRS due to non-infectious process without acute organ dysfunction Current Visit: Yes Status: Acute Code(s): R65.10 - SIRS OF NON-INFECTIOUS ORIGIN W/O ACUTE ORGAN DYSFUNCTION SNOMED Code(s): 503557421974476 (6) Acute alcoholic hepatitis Current Visit: Yes Status: Acute Code(s): K70.10 - ALCOHOLIC HEPATITIS WITHOUT ASCITES SNOMED Code(s): 9374722 (7) Acute renal failure Current Visit: Yes Status: Acute Code(s): N17.9 - ACUTE KIDNEY FAILURE, UNSPECIFIED SNOMED Code(s): 66977782 (8) Alcohol use disorder Current Visit: Yes Status: Acute Priority: Medium Code(s): FTL1916 - SNOMED Code(s): 6097558 (9) Cirrhosis Current Visit: Yes Status: Acute Code(s): K74.60 - UNSPECIFIED CIRRHOSIS OF LIVER SNOMED Code(s): 62230733 (10) Dehydration Current Visit: Yes Status: Acute Code(s): E86.0 - DEHYDRATION SNOMED Code(s): 22715903 (11) Hyperbilirubinemia Current Visit: Yes Status: Acute Code(s): E80.6 - OTHER DISORDERS OF BILIRUBIN METABOLISM SNOMED Code(s): 46579601 (12) Hypotension Current Visit: Yes Status: Acute Code(s): I95.9 - HYPOTENSION, UNSPECIFIED SNOMED Code(s): 62632274 (13) Shock Current Visit: Yes Status: Acute Code(s): R57.9 - SHOCK, UNSPECIFIED SNOME D Code(s): 60926478 Plan: G.I., critical care, and nephrology have been consulted. He's already received fluid boluses, but remained hypotensive. He is now on pressors per critical care.Has been started on CIWA protocol, and we'll go to the intensive care unit once bed is available. Will repeat labs and a.m. I will reevaluate in the next 24 hours. I will wait on home sales consultant recommendations.
--- NOTE | 2023-10-25 13:17 | P.NPCON ---
History of Present Illness - Reason for Consult acute renal failure - History of Present Illness Changes a 43-year-old male with history of chronic EtOH abuse who has been drinking since he was a teenager. Patient is admitted to the hospital due to low blood pressure noted at PCPs office. Patient's kidney function was also compromise and therefore he was advised admission. Patient denies any history of nausea or vomiting. He did admit to decreased oral intake Patient has not seen GI specialist before. He admits to having noticed dark urine for about 1 week now. No previous history of kidney diseases. Serum creatinine was 2.47 and has decreased to 1.8. Blood pressure was low with systolic in the 70s. Maintained on IV fluids. Status post IV albumin. Patient has been voiding without difficulty. Urine output not charted. NSAIDs, Motrin noted on home med list along with Zestril. Review of Systems As per HPI Past Medical History Past Medical History: Chest Pain / Angina, Hyperlipidemia, Hypertension Additional Past Medical History / Comment(s): "high liver enzymes",lower back pain, degenerative disk disease,herniated disk, History of Any Multi-Drug Resistant Organisms: None Reported Past Surgical History: Orthopedic Surgery Additional Past Surgical History / Comment(s): rt hand surgery, oral surgery Past Anesthesia/Blood Transfusion Reactions: No Reported Reaction Past Psychological History: Anxiety Smoking Status: Current every day smoker Past Alcohol Use History: Daily Past Drug Use History: Marijuana, Methamphetamine - Past Family History Father Family Medical History: Cancer Medications and Allergies Home Medications Medication Instructions Recorded Confirmed Type Hydrocodone/Acetaminophen [[place] 1 tab PO TID PRN 12/06/18 10/24/23 History 10-325] Gabapentin [Neurontin] 300 mg PO TID 04/28/20 10/24/23 History lisinopriL [Zestril] 10 mg PO DAILY 08/31/21 10/24/23 History Atorvastatin [Lipitor] 20 mg PO DAILY 10/24/23 10/24/23 History Ibuprofen [Motrin] 800 mg PO Q8H PRN 10/24/23 10/24/23 History Metoprolol Succinate (ER) [Toprol 50 mg PO DAILY 10/24/23 10/24/23 History Xl] Allergies Allergy/AdvReac Type Severity Reaction Status Date / Time Penicillins Allergy Unknown Verified 10/24/23 21:10 Childhood Physical Exam Vitals: Vital Signs Temp Pulse Resp BP Pulse Ox 10/25/23 12:55 98.4 F 71 18 104/47 97 10/25/23 10:15 71 16 78/59 95 10/25/23 09:45 72 18 87/54 99 10/25/23 08:14 74 18 71/33 97 10/25/23 08:03 68 18 82/41 98 10/25/23 07:00 98.2 F 66 16 78/41 97 10/25/23 05:10 73 16 76/27 97 10/25/23 05:00 74/29 10/25/23 04:00 86/35 10/25/23 03:00 102/41 98 10/25/23 02:00 75/48 96 10/25/23 01:30 74/45 95 10/25/23 01:00 94/39 96 10/25/23 00:30 86/36 97 10/25/23 00:00 93/49 97 10/24/23 23:43 76/31 96 10/24/23 23:30 80/34 99 10/24/23 23:00 90/42 99 10/24/23 22:30 70/34 98 10/24/23 22:00 93/45 98 10/24/23 21:54 68 18 93/45 98 10/24/23 21:00 102/51 96 10/24/23 20:54 98 F 65 14 102/51 100 10/24/23 20:00 105/50 100 10/24/23 19:00 76/43 99 10/24/23 18:49 64 16 76/40 99 10/24/23 18:37 94 L 10/24/23 18:23 98.3 F 77 18 175/145 98 Intake and Output 10/24/23 10/25/23 10/25/23 22:59 06:59 14:59 Intake Total 27.763 Balance 27.763 Intake: Intake, IV Titration 27.763 Amount Norepinephrine 4 mg In 27.763 Sodium Chloride 0.9% 250 ml @ 0.03 MCG/KG/MIN 13. 998 mls/hr IV .Q18H9M [facility] Rx#:[id number] Other: Voiding Method Toilet Weight 122.47 kg Patient is awake, comfortable, no acute distress Alert oriented 3 Examination of the heart S1 and S2 Examination of the lungs bilateral breath sounds are heard Abdomen is soft obese nontender Examination of lower extremities shows no significant edema. Results - Lab Results Most recent lab results Calcium 7.2 mg/dL (8.7-10.3) L 10/25/23 04:21 Phosphorus 2.8 mg/dL (2.4-5.1) 10/25/23 04:21 Magnesium 1.9 mg/dL (1.5-2.4) 10/25/23 04:21 10/25/23 04:21 10/25/23 04:21 Assessment and Plan Assessment: 1. Acute kidney injury secondary to hypotension and hyperbilirubinemia, ATN currently nonoliguric. Bilirubin level XVI.4 UA shows WBCs 162 RBCs 20, blood and protein not documented. CT of the abdomen does not show any obstructive uropathy 2. Liver cirrhosis from EtOH abuse 3. Pyuria rule out UTI 4. History of hypertension Plan: Continue IV fluids Add midodrine Repeat labs in a.m. Continue to hold GOVIND inhibitor's and continue to avoid NSAIDs. Thank you for the consultation. We will continue to follow the patient with you during his hospitalization
[2023-10-25] MEDS: MIDODRINE 5 MG TAB PO SCH (17:31)
[2023-10-26 01:10] LABS: Glucose,Whole Blood 120 mg/dL (70-110)
[2023-10-26] MEDS: MORPHINE SULFATE 4 MG/ML SYRINGE IV PRN ×3 (01:54→21:05)
[2023-10-26 05:23] LABS: HCT 32.7 % (39.0-53.0); HGB 10.8 gm/dL (13.0-17.5); MCH 36.7 pg (25.0-35.0); MCHC 33.2 g/dL (31.0-37.0); MCV 110.8 fL (80.0-100.0); Macrocytosis Marked; Mean Platelet Volume 11.4; RBC 2.95 m/uL (4.30-5.90); WBC 8.3 k/uL (3.8-10.6)
[2023-10-26 05:27] LABS: Platelet Count 84 k/uL (150-450)
[2023-10-26 05:36] LABS: ALT 105 U/L (4-49); AST 506 U/L (17-59); African American GFR (CKD) 76 (>60 ml/min/1.73 sqM); Albumin 2.1 g/dL (3.5-5.0); Alkaline Phosphatase 149 U/L (38-126); Anion Gap 7 mmol/L; Blood Urea Nitrogen 21 mg/dL (9-20); Calcium 7.6 mg/dL (8.4-10.2); Carbon Dioxide 20 mmol/L (22-30); Chloride 107 mmol/L (98-107); Glucose 111 mg/dL (74-99); Non-African American GFR(CKD) 65 (>60 ml/min/1.73 sqM); Potassium 3.6 mmol/L (3.5-5.1); Sodium 134 mmol/L (137-145); Total Bilirubin 14.4 mg/dL (0.2-1.3); Total Protein 5.5 g/dL (6.3-8.2)
[2023-10-26] MEDS: MIDODRINE 5 MG TAB PO SCH ×3 (07:09→15:52)
[2023-10-26] MEDS ORDERED: POTASSIUM CHLORIDE ER 20 MEQ TAB.ER PO STA (08:03)
[2023-10-26] MEDS: LACTULOSE 20 GM/30 ML CUP PO SCH ×3 (08:59→21:04)
[2023-10-26] MEDS: THIAMINE 100 MG TAB PO SCH (09:00)
[2023-10-26] MEDS: NOREPINEPHRINE 4 MG in SODIUM CHLORIDE 0.9% 250 ML IV SCH (09:02)
[2023-10-26] MEDS: SODIUM CHLORIDE 0.9% 1,000 ML IV SCH ×3 (09:05→21:14)
--- NOTE | 2023-10-26 11:36 | P.PN ---
Subjective 10/25/23 This is a 43-year-old male known to our nurse practitioner in the practice. He is noncompiant and has not been seen in the past 6 months. He is an alcoholic and has been drinking 30+ years. Indicates he's quit drinking off and on. He was seen by Dr. Jensen, his pain management, physician, who found his urine to beDark and his blood pressure very low at that time. He was directed in the emergency room. He was found to have significant abnormal laboratory studies With alcoholic cirrhosis, ascites, and acute kidney injury mostly up had a renal syndrome. There is a noted coagulopathy on his labs as well. Currently, the patient is resting comfortably is on pressors for blood pressure. Denies any lightheaded, dizziness, other than standing. No chest pain pressure, short breath, no nausea or vomiting this time no diarrhea or constipation 10/26/2023: Patient resting comfortably intensive care unit. He is much more visibly jaundiced today. He denies any chest pains pressures short of breath nausea vomiting. Blood pressure is stable with him off pressors at this time he is on room air. He is on antibiotic coverage with ceftriaxone. Hemoglobin remains 10 8. Platelets are 84. Marked macrocytosis noted. INR today is 2.0. Blood chemistries BUN 21 creatinine 1.33 sodium was 134 potassium 36. ALT slightly increased from 93-105. AST is worsened from 415 to 506. Objective - Vital Signs Vital signs: Vital Signs Temp 97.7 F 10/26/23 08:00 Pulse 73 10/26/23 09:00 Resp 14 10/26/23 09:00 BP 89/49 10/26/23 09:00 Pulse Ox 95 10/26/23 09:00 FiO2 Intake & Output 10/25/23 10/26/23 10/26/23 18:59 06:59 18:59 Intake Total 067.971 9971.475 409.758 Output Total 301 Balance 252.129 763.475 409.758 Intake: IV 830 390 Sodium Chloride 0.9% 1, 780 390 000 ml @ 130 mls/hr IV . Q7H42M [facility] Rx#:[id number] cefTRIAXone 2 gm In 50 Sodium Chloride 0.9% 50 ml @ 100 mls/hr IVPB Q24HR [facility] Rx#:[id number] Intake, IV Titration 252.129 234.475 19.758 Amount Norepinephrine 4 mg In 252.129 234.475 19.758 Sodium Chloride 0.9% 250 ml @ 0.03 MCG/KG/MIN 13. 998 mls/hr IV .Q18H9M [facility] Rx#:[id number] Output: Urine 300 Stool 1 Other: Voiding Method Bedside Commode Bedside Commode Urinal Urinal # Voids 1 # Bowel Movements 1 - Exam General: The patient is awake and alert, in no distress, is markedly jaundiced Neck: The neck is supple, there is no thyromegaly, lymphadenopathy, tenderness or JVD. Cardiovascular: S1S2 is normal, There is a regular rate and rhythm. No murmur, rub or gallop is appreciated. Respiratory: Lungs are clear to auscultation bilaterally, respirations are non-labored, breath sounds are equal. Gastrointestinal: Soft, n non-tender abdomen There is no rebound or guarding present. Bowel sounds are unremarkable. Hepatomegaly is noted. There is distention consistent with ascites. Musculoskeletal: Normal ROM, no tenderness, There is +1 pedal edema. There is no calf tenderness or swelling. No cords were appreciated. Neurological: CN II-XII intact, there are no obvious motor or sensory deficits. Coordination appears grossly intact. Speech is normal. Skin: Skin is warm and dry . Marked jaundice, there is a macular rash to the chest - Labs CBC & Chem 7: 10/26/23 04:59 10/26/23 04:59 Labs: Abnormal Lab Results - Last 24 Hours (Table) 10/26/23 10/26/23 10/26/23 Range/Units 01:08 04:59 04:59 RBC 2.95 L (4.30-5.90) m/uL Hgb 10.8 L (13.0-17.5) gm/dL Hct 32.7 L (39.0-53.0) % MCV 110.8 H (80.0-100.0) fL MCH 36.7 H (25.0-35.0) pg RDW 16.0 H (11.5-15.5) % Plt Count 84 L (150-450) k/uL Macrocytosis Marked A PT 20.0 H (10.0-12.5) sec INR 2.0 H (<1.2) Sodium (137-145) mmol/L Carbon Dioxide (22-30) mmol/L BUN (9-20) mg/dL Creatinine (0.66-1.25) mg/dL Glucose (74-99) mg/dL POC Glucose (mg/dL) 120 H (70-110) mg/dL Calcium (8.4-10.2) mg/dL Total Bilirubin (0.2-1.3) mg/dL AST (17-59) U/L ALT (4-49) U/L Alkaline Phosphatase (38-126) U/L Ammonia (<30) umol/L Total Protein (6.3-8.2) g/dL Albumin (3.5-5.0) g/dL 10/26/23 10/26/23 Range/Units 04:59 04:59 RBC (4.30-5.90) m/uL Hgb (13.0-17.5) gm/dL Hct (39.0-53.0) % MCV (80.0-100.0) fL MCH (25.0-35.0) pg RDW (11.5-15.5) % Plt Count (150-450) k/uL Macrocytosis PT (10.0-12.5) sec INR (<1.2) Sodium 134 L (137-145) mmol/L Carbon Dioxide 20 L (22-30) mmol/L BUN 21 H (9-20) mg/dL Creatinine 1.33 H (0.66-1.25) mg/dL Glucose 111 H (74-99) mg/dL POC Glucose (mg/dL) (70-110) mg/dL Calcium 7.6 L (8.4-10.2) mg/dL Total Bilirubin 14.4 H (0.2-1.3) mg/dL AST 506 H (17-59) U/L ALT 105 H (4-49) U/L Alkaline Phosphatase 149 H (38-126) U/L Ammonia 46 H (<30) umol/L Total Protein 5.5 L (6.3-8.2) g/dL Albumin 2.1 L (3.5-5.0) g/dL Microbiology - Last 24 Hours (Table) 10/24/23 18:53 Urine Culture - Final Urine,Voided Assessment and Plan (1) Acute alcoholic hepatitis Current Visit: Yes Status: Acute Code(s): K70.10 - ALCOHOLIC HEPATITIS WITHOUT ASCITES SNOMED Code(s): 5668337 (2) SIRS due to non-infectious process without acute organ dysfunction Current Visit: Yes Status: Acute Code(s): R65.10 - SIRS OF NON-INFECTIOUS ORIGIN W/O ACUTE ORGAN DYSFUNCTION SNOMED Code(s): 073796507684322 (3) Mixed hyperlipidemia Current Visit: Yes Status: Acute Code(s): E78.2 - MIXED HYPERLIPIDEMIA SNOMED Code(s): 755397910 (4) Polysubstance (excluding opioids) dependence Current Visit: Yes Status: Acute Code(s): F19.20 - OTHER PSYCHOACTIVE SUBSTANCE DEPENDENCE, UNCOMPLICATED SNOMED Code(s): 63834035 (5) Thrombocytopenia Current Visit: Yes Status: Acute Code(s): D69.6 - THROMBOCYTOPENIA, UNSPECIFIED SNOMED Code(s): 315540882 (6) Macrocytic anemia Current Visit: Yes Status: Acute Code(s): D53.9 - NUTRITIONAL ANEMIA, UNSPECIFIED SNOMED Code(s): 84187505 (7) Acute renal failure Current Visit: Yes Status: Acute Code(s): N17.9 - ACUTE KIDNEY FAILURE, UNSPECIFIED SNOMED Code(s): 79378171 (8) Alcohol use disorder Current Visit: Yes Status: Acute Priority: Medium Code(s): RWF8309 - SNOMED Code(s): 6921773 (9) Cirrhosis Current Visit: Yes Status: Acute Code(s): K74.60 - UNSPECIFIED CIRRHOSIS OF LIVER SNOMED Code(s): 88303073 (10) Dehydration Current Visit: Yes Status: Acute Code(s): E86.0 - DEHYDRATION SNOMED Code(s): 96221123 (11) Hyperbilirubinemia Current Visit: Yes Status: Acute Code(s): E80.6 - OTHER DISORDERS OF BILIRUBIN METABOLISM SNOMED Code(s): 06894684 (12) Hypotension Current Visit: Yes Status: Acute Code(s): I95.9 - HYPOTENSION, UNSPECIFIED SNOMED Code(s): 51828268 (13) Shock Current Visit: Yes Status: Acute Code(s): R57.9 - SHOCK, UNSPECIFIED SNOMED Code(s): 98645074 (14) Coagulopathy Current Visit: Yes Status: Acute Code(s): D68.9 - COAGULATION DEFECT, UNS PECIFIED SNOMED Code(s): 41207716 Plan: I will wait on guidance consultant recommendations. repeat labs in am, he'll be reevaluated in the next 24 hours
--- NOTE | 2023-10-26 11:51 | P.PN ---
Subjective Patient is seen for follow-up for acute kidney injury. Currently maintained on IV fluids. Blood pressure is much better and patient is off of vasopressors. Maintained on midodrine. Serum creatinine improved to 1.3 from 1.8 yesterday. Objective - Vital Signs Vital signs: Vital Signs Temp 97.7 F 10/26/23 08:00 Pulse 73 10/26/23 09:00 Resp 14 10/26/23 09:00 BP 89/49 10/26/23 09:00 Pulse Ox 95 10/26/23 09:00 FiO2 Intake & Output 10/25/23 10/26/23 10/26/23 18:59 06:59 18:59 Intake Total 192.702 8819.475 409.758 Output Total 301 Balance 252.129 763.475 409.758 Intake: IV 830 390 Sodium Chloride 0.9% 1, 780 390 000 ml @ 130 mls/hr IV . Q7H42M [facility] Rx#:[id number] cefTRIAXone 2 gm In 50 Sodium Chloride 0.9% 50 ml @ 100 mls/hr IVPB Q24HR [facility] Rx#:[id number] Intake, IV Titration 252.129 234.475 19.758 Amount Norepinephrine 4 mg In 252.129 234.475 19.758 Sodium Chloride 0.9% 250 ml @ 0.03 MCG/KG/MIN 13. 998 mls/hr IV .Q18H9M [facility] Rx#:[id number] Output: Urine 300 Stool 1 Other: Voiding Method Bedside Commode Bedside Commode Urinal Urinal # Voids 1 # Bowel Movements 1 - Exam Patient is awake, comfortable, no acute distress Alert oriented 3 Examination of the heart S1 and S2 Examination of the lungs bilateral breath sounds are heard Abdomen is soft obese nontender Examination of lower extremities shows no significant edema. - Labs CBC & Chem 7: 10/26/23 04:59 10/26/23 04:59 Labs: Abnormal Lab Results - Last 24 Hours (Table) 10/26/23 10/26/23 10/26/23 Range/Units 01:08 04:59 04:59 RBC 2.95 L (4.30-5.90) m/uL Hgb 10.8 L (13.0-17.5) gm/dL Hct 32.7 L (39.0-53.0) % MCV 110.8 H (80.0-100.0) fL MCH 36.7 H (25.0-35.0) pg RDW 16.0 H (11.5-15.5) % Plt Count 84 L (150-450) k/uL Macrocytosis Marked A PT 20.0 H (10.0-12.5) sec INR 2.0 H (<1.2) Sodium (137-145) mmol/L Carbon Dioxide (22-30) mmol/L BUN (9-20) mg/dL Creatinine (0.66-1.25) mg/dL Glucose (74-99) mg/dL POC Glucose (mg/dL) 120 H (70-110) mg/dL Calcium (8.4-10.2) mg/dL Total Bilirubin (0.2-1.3) mg/dL AST (17-59) U/L ALT (4-49) U/L Alkaline Phosphatase (38-126) U/L Ammonia (<30) umol/L Total Protein (6.3-8.2) g/dL Albumin (3.5-5.0) g/dL 10/26/23 10/26/23 Range/Units 04:59 04:59 RBC (4.30-5.90) m/uL Hgb (13.0-17.5) gm/dL Hct (39.0-53.0) % MCV (80.0-100.0) fL MCH (25.0-35.0) pg RDW (11.5-15.5) % Plt Count (150-450) k/uL Macrocytosis PT (10.0-12.5) sec INR (<1.2) Sodium 134 L (137-145) mmol/L Carbon Dioxide 20 L (22-30) mmol/L BUN 21 H (9-20) mg/dL Creatinine 1.33 H (0.66-1.25) mg/dL Glucose 111 H (74-99) mg/dL POC Glucose (mg/dL) (70-110) mg/dL Calcium 7.6 L (8.4-10.2) mg/dL Total Bilirubin 14.4 H (0.2-1.3) mg/dL AST 506 H (17-59) U/L ALT 105 H (4-49) U/L Alkaline Phosphatase 149 H (38-126) U/L Ammonia 46 H (<30) umol/L Total Protein 5.5 L (6.3-8.2) g/dL Albumin 2.1 L (3.5-5.0) g/dL Microbiology - Last 24 Hours (Table) 10/24/23 18:53 Urine Culture - Final Urine,Voided Assessment and Plan Assessment: 1. Acute kidney injury secondary to hypotension and hyperbilirubinemia, ATN currently nonoliguric. Bilirubin level obtained 0.4 UA shows WBCs 162 RBCs 20, blood and protein not documented. CT of the abdomen does not show any obstructive uropathy 2. Liver cirrhosis from EtOH abuse 3. Pyuria rule out UTI 4. History of hypertension Plan: Continue IV fluids Continue with midodrine Repeat labs in a.m.
--- NOTE | 2023-10-26 12:10 | P.PN ---
Subjective Progress Note Date: 10/26/23 I am seeing this patient in new consultation in the emergency room, room 5, after being sent in from his pain clinic. The patient was jaundiced and reportedly had low blood pressures in the office. Patient is a 43-year-old white male with past medical history significant for alcoholism, polysubstance abuse, hypertension, hyperlipidemia, chronic pain, incarceration. Patient is seen in the pain clinic for chronic lower back pain. Patient also has history of polysubstance abuse. His last alcoholic drink was about 1 week ago. States he usually drinks between 12-18, 12 ounce beers per day. He was noted to be jaundiced and reportedly had low blood pressures while at the office. Earlier in the week he reported some abdominal pain. States his urine has been orange. Denies any change in his bowel movements or pale stools. No nausea, vomiting or diarrhea. Denies fevers. LFTs were elevated with a 2>1 ratio. AST 528, ALT 104, ALP 161. Total bilirubin elevated at 16.4. Ammonia 14. Amylase and lipase not elevated. Gallbladder ultrasound demonstrated cirrhotic liver, moderate ascites, distended gallbladder with cholelithiasis negative sonographic Cardona sign. Follow-up CT abdomen redemonstrated cirrhotic hepatic morphology, moderate abdominal pelvic ascites and mesenteric edema, moderate diffuse body wall edema suggestive of anasarca, distended gallbladder with 5.4 mm intraluminal gallstone. Small infrarenal saccular aneurysm. Small sliding hiatal hernia. Currently, the patient is lying in bed, on room air, in no acute distress. Abdomen is soft and nonpainful. Cardona sign negative. Blood pressure is hypotensive despite 3 L normal saline bolus. Patient is going to be started on norepinephrine. CBC: WBC count 8.2, hemoglobin 12.3, hematocrit 37.2, platelets 97. Coagulation profile: INR of 1.9 and a PTT of 32.1. Patient denies any bleeding. BMP: Sodium 132, potassium 4.1, chloride 99, serum bicarb 22, BUN 26, creatinine 2.47, glucose 128. Lactic acid 2.2 and is down to 1.9. Troponin 0.016. Afebrile. Patient will be admitted to the intensive care unit. The patient is seen today 10/26/2023 in follow-up in the intensive care unit. He is currently resting in bed. Awake and alert in no acute distress. He remains significantly jaundiced. He is maintaining O2 saturations in the 90s on room air. He is receiving normal saline at 130 ML's per hour. His norepinephrine has been off since 9 AM this morning. He remains on midodrine. Urine culture revealed no growth. White count 8.3. Hemoglobin 10.8. Platelets 84,000. INR 2.0. Sodium 134. Potassium 3.6. Bicarb 20. BUN 21. Creatinine 1.33. Glucose 111. Calcium 7.6. AST 506. ALT 105. Ammonia level 46. Pro- calcitonin was 0.44. Hepatitis screen was nonreactive. Remains on lactulose. Antibiotics in the form of ceftriaxone. Remains in the [facility] protocol. Objective - Vital Signs Vital signs: Vital Signs Temp 97.7 F 10/26/23 08:00 Pulse 73 10/26/23 09:00 Resp 14 10/26/23 09:00 BP 89/49 10/26/23 09:00 Pulse Ox 95 10/26/23 09:00 FiO2 Intake & Output 10/25/23 10/26/23 10/26/23 18:59 06:59 18:59 Intake Total 086.182 8893.475 409.758 Output Total 301 Balance 252.129 763.475 409.758 Intake: IV 830 390 Sodium Chloride 0.9% 1, 780 390 000 ml @ 130 mls/hr IV . Q7H42M [facility] Rx#:[id number] cefTRIAXone 2 gm In 50 Sodium Chloride 0.9% 50 ml @ 100 mls/hr IVPB Q24HR [facility] Rx#:[id number] Intake, IV Titration 252.129 234.475 19.758 Amount Norepinephrine 4 mg In 252.129 234.475 19.758 Sodium Chloride 0.9% 250 ml @ 0.03 MCG/KG/MIN 13. 998 mls/hr IV .Q18H9M [facility] Rx#:[id number] Output: Urine 300 Stool 1 Other: Voiding Method Bedside Commode Bedside Commode Urinal Urinal # Voids 1 # Bowel Movements 1 - Exam GENERAL EXAM: Alert, pleasant 43-year-old male, jaundice, on room air, comfortable in no apparent distress. HEAD: Normocephalic and atraumatic EYES: Normal reaction of pupils, equal size. Icteric sclera NOSE: Clear with pink turbinates. THROAT: No erythema or exudates. NECK: No masses, no JVD. CHEST: No chest wall deformity. LUNGS: Equal air entry with no crackles, wheeze, rhonchi or dullness. No conversational dyspnea. CVS: S1 and S2 normal with no audible murmur, regular rhythm. No extra heart sounds ABDOMEN: Obese/large abdomen, negative Cardona maneuver, no guarding or rigidity SPINE: No scoliosis or deformity SKIN: Jaundice CENTRAL NERVOUS SYSTEM: No focal deficits, tone is normal in all 4 extremities. EXTREMITIES: There is no peripheral edema, clubbing, or cyanosis. Peripheral pulses are intact. - Labs CBC & Chem 7: 10/26/23 04:59 10/26/23 04:59 Labs: Abnormal Lab Results - Last 24 Hours (Table) 10/26/23 10/26/23 10/26/23 Range/Units 01:08 04:59 04:59 RBC 2.95 L (4.30-5.90) m/uL Hgb 10.8 L (13.0-17.5) gm/dL Hct 32.7 L (39.0-53.0) % MCV 110.8 H (80.0-100.0) fL MCH 36.7 H (25.0-35.0) pg RDW 16.0 H (11.5-15.5) % Plt Count 84 L (150-450) k/uL Macrocytosis Marked A PT 20.0 H (10.0-12.5) sec INR 2.0 H (<1.2) Sodium (137-145) mmol/L Carbon Dioxide (22-30) mmol/L BUN (9-20) mg/dL Creatinine (0.66-1.25) mg/dL Glucose (74-99) mg/dL POC Glucose (mg/dL) 120 H (70-110) mg/dL Calcium (8.4-10.2) mg/dL Total Bilirubin (0.2-1.3) mg/dL AST (17-59) U/L ALT (4-49) U/L Alkaline Phosphatase (38-126) U/L Ammonia (<30) umol/L Total Protein (6.3-8.2) g/dL Albumin (3.5-5.0) g/dL 10/26/23 10/26/23 Range/Units 04:59 04:59 RBC (4.30-5.90) m/uL Hgb (13.0-17.5) gm/dL Hct (39.0-53.0) % MCV (80.0-100.0) fL MCH (25.0-35.0) pg RDW (11.5-15.5) % Plt Count (150-450) k/uL Macrocytosis PT (10.0-12.5) sec INR (<1.2) Sodium 134 L (137-145) mmol/L Carbon Dioxide 20 L (22-30) mmol/L BUN 21 H (9-20) mg/dL Creatinine 1.33 H (0.66-1.25) mg/dL Glucose 111 H (74-99) mg/dL POC Glucose (mg/dL) (70-110) mg/dL Calcium 7.6 L (8.4-10.2) mg/dL Total Bilirubin 14.4 H (0.2-1.3) mg/dL AST 506 H (17-59) U/L ALT 105 H (4-49) U/L Alkaline Phosphatase 149 H (38-126) U/L Ammonia 46 H (<30) umol/L Total Protein 5.5 L (6.3-8.2) g/dL Albumin 2.1 L (3.5-5.0) g/dL Microbiology - Last 24 Hours (Table) 10/24/23 18:53 Urine Culture - Final Urine,Voided Assessment and Plan Assessment: Hypotension and shock, refractory to fluid replacement, requiring vasopressors. Off norepinephrine at 9 AM this morning. Maintained on midodrine. Hyperbilirubinemia, rule out acute cholecystitis/cholangitis/SBP. Gallbladder ultrasound demonstrated cirrhotic liver, moderate ascites, distended gallbladder with cholelithiasis, and negative sonographic Cardona sign. Follow-up CT abdomen redemonstrated cirrhotic hepatic morphology, moderate abdominal pelvic ascites and mesenteric edema, moderate diffuse body wall edema suggestive of anasarca, distended gallbladder with 5.4 mm intraluminal gallstone, no significant biliary dilation seen. There were other incidental findings. Alcoholic liver cirrhosis and ascites. Paracentesis performed today 10/26/2023 with 1.4 L removed Acute kidney injury, hepatorenal syndrome Anemia with thrombocytopenia Transaminitis with coagulopathy Hyperammonemia, receiving lactulose Alcoholism, last drink reportedly last week History of polysubstance abuse Hyperlipidemia History of hypertension Hypoalbuminemia Chronic pain History of incarceration Plan: The patient was seen and evaluated Labs and medications reviewed Ammonia level improving Remains on lactulose Off pressors since 9 AM Paracentesis performed today with 1.4 L removed May transfer her out to the regular medical floor later this afternoon if remains stable May increase midodrine if needed We will continue to follow I have personally seen and examined the patient, performed the documentation and the assessment and plan as written. Number of minutes spent on the visit: 10.
--- NOTE | 2023-10-26 12:19 | US ---
EXAMINATION TYPE: US paracentesis abd w/image DATE OF EXAM: 10/26/2023 11:52 AM CLINICAL INDICATION:Male, 43 years old with history of ascites. COMPARISON: 10/24/2023. ATTENDING: Dr. Jose Carlos Daniel PROCEDURE: Informed consent was obtained. The risks of the procedure were extensively explained incl uding risk of damage to surrounding bowel with perforation and need for additional procedures. Proced ure was performed in the ultrasound procedure suite. Ultrasound imaging of the abdomen demonstrate as citic fluid. An appropriate access site was localized to the right lower abdomen. Timeout was taken p er protocol. The skin was prepped and draped in the usual sterile fashion and then locally anesthetiz ed with 1% lidocaine. The peritoneal cavity was then accessed via a 5-Indian one-step needle/cathete r. Approximately 1420 cc (+2 syringes submitted for diagnostic evaluation) of clear straw-colored fl uid was obtained. Samples were sent to the lab for analysis. Postprocedural imaging of the abdomen d emonstrate a minimal amount of abdominal fluid. Patient tolerated procedure well without immediate complication. Hemostasis at the procedural site w as obtained with a sterile bandage placed. The patient was monitored in the holding area following th e procedure and was subsequently discharged in stable condition. IMPRESSION: Ultrasound guided paracentesis, with approximately 1420 cc of clear straw-colored fluid drained. Path ology results pending. No immediate complications were evident.
[2023-10-27 02:24] LABS: Appearance,BF Clear (Clear)
[2023-10-27 03:08] LABS: Albumin, Fluid Source Ascities; T. Protein, Body Fluid Source Ascities; Total Protein, Body Fluid 464 mg/dL
[2023-10-27] MEDS: SODIUM CHLORIDE 0.9% 1,000 ML IV SCH ×3 (04:01→11:18)
[2023-10-27] MEDS: MIDODRINE 5 MG TAB PO SCH ×3 (06:37→16:36)
[2023-10-27] MEDS: NOREPINEPHRINE 4 MG in SODIUM CHLORIDE 0.9% 250 ML IV SCH (08:18)
[2023-10-27] MEDS: LACTULOSE 20 GM/30 ML CUP PO SCH ×3 (08:20→20:14)
[2023-10-27] MEDS: THIAMINE 100 MG TAB PO SCH (08:20)
--- NOTE | 2023-10-27 11:08 | P.PN ---
Subjective Patient is seen for follow-up for acute kidney injury. Currently maintained on IV fluids. Blood pressure is much better and patient is off of vasopressors. Maintained on midodrine. Serum creatinine improved to 1.3 from 1.8 No complaints today. Objective - Vital Signs Vital signs: Vital Signs Temp 98.5 F 10/27/23 07:22 Pulse 87 10/27/23 07:22 Resp 16 10/27/23 07:22 BP 116/65 10/27/23 07:22 Pulse Ox 97 10/27/23 07:22 FiO2 Intake & Output 10/26/23 10/27/23 10/27/23 18:59 06:59 18:59 Intake Total 1819.758 Output Total 1401 Balance 418.758 Intake: IV 1560 Sodium Chloride 0.9% 1, 1560 000 ml @ 130 mls/hr IV . Q7H42M [facility] Rx#:[id number] Intake, IV Titration 19.758 Amount Norepinephrine 4 mg In 19.758 Sodium Chloride 0.9% 250 ml @ 0.03 MCG/KG/MIN 13. 998 mls/hr IV .Q18H9M [facility] Rx#:[id number] Oral 240 Output: Urine 1 Other 1400 Other: Voiding Method Bedside Commode Urinal Urinal # Bowel Movements 1 - Exam Patient is awake, comfortable, no acute distress Alert oriented 3 Examination of the heart S1 and S2 Examination of the lungs bilateral breath sounds are heard Abdomen is soft obese nontender Examination of lower extremities shows no significant edema. - Labs CBC & Chem 7: 10/26/23 04:59 10/26/23 04:59 Labs: Microbiology - Last 24 Hours (Table) 10/25/23 04:10 Blood Culture - Preliminary Blood 10/25/23 03:55 Blood Culture - Preliminary Blood 10/24/23 18:53 Urine Culture - Final Urine,Voided Assessment and Plan Assessment: 1. Acute kidney injury secondary to hypotension and hyperbilirubinemia, ATN currently nonoliguric. Bilirubin level 14.4 UA shows WBCs 162 RBCs 20, blood and protein not documented. CT of the abdomen does not show any obstructive uropathy 2. Liver cirrhosis from EtOH abuse 3. Pyuria rule out UTI 4. History of hypertension Plan: Decrease IV fluids Continue with midodrine
--- NOTE | 2023-10-27 11:36 | P.PN ---
Subjective Progress Note Date: 10/27/23 I am seeing this patient in new consultation in the emergency room, room 5, after being sent in from his pain clinic. The patient was jaundiced and reportedly had low blood pressures in the office. Patient is a 43-year-old white male with past medical history significant for alcoholism, polysubstance abuse, hypertension, hyperlipidemia, chronic pain, incarceration. Patient is seen in the pain clinic for chronic lower back pain. Patient also has history of polysubstance abuse. His last alcoholic drink was about 1 week ago. States he usually drinks between 12-18, 12 ounce beers per day. He was noted to be jaundiced and reportedly had low blood pressures while at the office. Earlier in the week he reported some abdominal pain. States his urine has been orange. Denies any change in his bowel movements or pale stools. No nausea, vomiting or diarrhea. Denies fevers. LFTs were elevated with a 2>1 ratio. AST 528, ALT 104, ALP 161. Total bilirubin elevated at 16.4. Ammonia 14. Amylase and lipase not elevated. Gallbladder ultrasound demonstrated cirrhotic liver, moderate ascites, distended gallbladder with cholelithiasis negative sonographic Cardona sign. Follow-up CT abdomen redemonstrated cirrhotic hepatic morphology, moderate abdominal pelvic ascites and mesenteric edema, moderate diffuse body wall edema suggestive of anasarca, distended gallbladder with 5.4 mm intraluminal gallstone. Small infrarenal saccular aneurysm. Small sliding hiatal hernia. Currently, the patient is lying in bed, on room air, in no acute distress. Abdomen is soft and nonpainful. Cardona sign negative. Blood pressure is hypotensive despite 3 L normal saline bolus. Patient is going to be started on norepinephrine. CBC: WBC count 8.2, hemoglobin 12.3, hematocrit 37.2, platelets 97. Coagulation profile: INR of 1.9 and a PTT of 32.1. Patient denies any bleeding. BMP: Sodium 132, potassium 4.1, chloride 99, serum bicarb 22, BUN 26, creatinine 2.47, glucose 128. Lactic acid 2.2 and is down to 1.9. Troponin 0.016. Afebrile. Patient will be admitted to the intensive care unit. The patient is seen today 10/26/2023 in follow-up in the intensive care unit. He is currently resting in bed. Awake and alert in no acute distress. He remains significantly jaundiced. He is maintaining O2 saturations in the 90s on room air. He is receiving normal saline at 130 ML's per hour. His norepinephrine has been off since 9 AM this morning. He remains on midodrine. Urine culture revealed no growth. White count 8.3. Hemoglobin 10.8. Platelets 84,000. INR 2.0. Sodium 134. Potassium 3.6. Bicarb 20. BUN 21. Creatinine 1.33. Glucose 111. Calcium 7.6. AST 506. ALT 105. Ammonia level 46. Pro- calcitonin was 0.44. Hepatitis screen was nonreactive. Remains on lactulose. Antibiotics in the form of ceftriaxone. Remains in the [facility] protocol. The patient is seen today 10/27/2023 in follow-up on the regular medical floor. He is currently resting comfortably in bed. Awake and alert in no acute distress. Continues to maintain good O2 saturations in the mid to upper 90s on room air. He's afebrile. Hemodynamically stable. He did undergo a paracentesis yesterday with 1.4 L of transudate fluid removed. Cytology is pending. Urine culture revealed no growth. Blood cultures reveal no growth. Today's labs are pending. He remains on lactulose. Continued on antibiotics in the form of ceftriaxone. Remains in the [facility] protocol. Remains on thiamine supplements. Continued on midodrine. Remains on normal saline at 60 ML's per hour. Objective - Vital Signs Vital signs: Vital Signs Temp 98.5 F 10/27/23 07:22 Pulse 87 10/27/23 07:22 Resp 16 10/27/23 07:22 BP 116/65 10/27/23 07:22 Pulse Ox 97 10/27/23 07:22 FiO2 Intake & Output 10/26/23 10/27/23 10/27/23 18:59 06:59 18:59 Intake Total 1819.758 Output Total 1401 Balance 418.758 Intake: IV 1560 Sodium Chloride 0.9% 1, 1560 000 ml @ 130 mls/hr IV . Q7H42M [facility] Rx#:[id number] Intake, IV Titration 19.758 Amount Norepinephrine 4 mg In 19.758 Sodium Chloride 0.9% 250 ml @ 0.03 MCG/KG/MIN 13. 998 mls/hr IV .Q18H9M [facility] Rx#:[id number] Oral 240 Output: Urine 1 Other 1400 Other: Voiding Method Bedside Commode Urinal Urinal # Bowel Movements 1 - Exam GENERAL EXAM: Alert, 43-year-old male, very jaundice, resting in bed, on room air, comfortable in no apparent distress. HEAD: Normocephalic and atraumatic EYES: Normal reaction of pupils, equal size. Icteric sclera NOSE: Clear with pink turbinates. THROAT: No erythema or exudates. NECK: No masses, no JVD. CHEST: No chest wall deformity. LUNGS: Equal air entry with no crackles, wheeze, rhonchi or dullness. No conversational dyspnea. CVS: S1 and S2 normal with no audible murmur, regular rhythm. No extra heart sounds ABDOMEN: Distended, soft, no guarding or rigidity SPINE: No scoliosis or deformity SKIN: Jaundice CENTRAL NERVOUS SYSTEM: No focal deficits, tone is normal in all 4 extremities. EXTREMITIES: There is no peripheral edema, clubbing, or cyanosis. Peripheral pulses are intact. - Labs CBC & Chem 7: 10/26/23 04:59 10/26/23 04:59 Labs: Microbiology - Last 24 Hours (Table) 10/25/23 04:10 Blood Culture - Preliminary Blood 10/25/23 03:55 Blood Culture - Preliminary Blood 10/24/23 18:53 Urine Culture - Final Urine,Voided Assessment and Plan Assessment: Hypotension and shock, refractory to fluid replacement, requiring vasopressors. Off norepinephrine at 9 AM yesterday. Maintained on midodrine. Hyperbilirubinemia, rule out acute cholecystitis/cholangitis/SBP. Gallbladder ultrasound demonstrated cirrhotic liver, moderate ascites, distended gallbladder with cholelithiasis, and negative sonographic Cardona sign. Follow-up CT abdomen redemonstrated cirrhotic hepatic morphology, moderate abdominal pelvic ascites and mesenteric edema, moderate diffuse body wall edema suggestive of anasarca, distended gallbladder with 5.4 mm intraluminal gallstone, no significant biliary dilation seen. There were other incidental findings. Alcoholic liver cirrhosis and ascites. Paracentesis performed 10/26/2023 with 1.4 L removed Acute kidney injury, hepatorenal syndrome Anemia with thrombocytopenia Transaminitis with coagulopathy Hyperammonemia, receiving lactulose Alcoholism, last drink reportedly last week History of polysubstance abuse Hyperlipidemia History of hypertension Hypoalbuminemia Chronic pain History of incarceration Plan: The patient was seen and evaluated Remains stable and on room air Medications reviewed Labs pending Remains on lactulose Paracentesis performed yesterday with 1.4 L removed Plan is to return home post discharge I have personally seen and examined the patient, performed the documentation and the assessment and plan as written. Number of minutes spent on the visit: 10.
--- NOTE | 2023-10-27 12:22 | P.PN ---
Subjective 10/25/23 This is a 43-year-old male known to our nurse practitioner in the practice. He is noncompiant and has not been seen in the past 6 months. He is an alcoholic and has been drinking 30+ years. Indicates he's quit drinking off and on. He was seen by Dr. Jensen, his pain management, physician, who found his urine to beDark and his blood pressure very low at that time. He was directed in the emergency room. He was found to have significant abnormal laboratory studies With alcoholic cirrhosis, ascites, and acute kidney injury mostly up had a renal syndrome. There is a noted coagulopathy on his labs as well. Currently, the patient is resting comfortably is on pressors for blood pressure. Denies any lightheaded, dizziness, other than standing. No chest pain pressure, short breath, no nausea or vomiting this time no diarrhea or constipation 10/26/2023: Patient resting comfortably intensive care unit. He is much more visibly jaundiced today. He denies any chest pains pressures short of breath nausea vomiting. Blood pressure is stable with him off pressors at this time he is on room air. He is on antibiotic coverage with ceftriaxone. Hemoglobin remains 10 8. Platelets are 84. Marked macrocytosis noted. INR today is 2.0. Blood chemistries BUN 21 creatinine 1.33 sodium was 134 potassium 36. ALT slightly increased from 93-105. AST is worsened from 415 to 506. 10/27/2023: Patient resting comfortably in his bed. He appears slightly less jaundiced today appears to be some clearing of his hands and legs. He does complain of some mild abdominal pain. He denies any chest pains, pressures, short of breath. He was admitted for hepatorenal syndrome with acute renal failure on top of acute cirrhosis. He was hypotensive and this is since resolved. Most recent blood pressure 116/65. He remains on room air 97%, pulse rate and respiratory rate are normal. Laboratory studies are pending for today. Nephrology critical care/pulmonology notes reviewed today. Objective - Vital Signs Vital signs: Vital Signs Temp 98.5 F 10/27/23 12:12 Pulse 87 10/27/23 12:12 Resp 16 10/27/23 12:12 BP 116/65 10/27/23 12:12 Pulse Ox 97 10/27/23 12:12 FiO2 Intake & Output 10/26/23 10/27/23 10/27/23 18:59 06:59 18:59 Intake Total 1819.758 Output Total 1401 Balance 418.758 Intake: IV 1560 Sodium Chloride 0.9% 1, 1560 000 ml @ 130 mls/hr IV . Q7H42M POLLY Rx#:[id number] Intake, IV Titration 19.758 Amount Norepinephrine 4 mg In 19.758 Sodium Chloride 0.9% 250 ml @ 0.03 MCG/KG/MIN 13. 998 mls/hr IV .Q18H9M POLLY Rx#:[id number] Oral 240 Output: Urine 1 Other 1400 Other: Voiding Method Bedside Commode Urinal Urinal # Bowel Movements 1 - Exam General: The patient is awake and alert, in no distress, is markedly jaundiced Neck: The neck is supple, there is no thyromegaly, lymphadenopathy, tenderness or JVD. Cardiovascular: S1S2 is normal, There is a regular rate and rhythm. No murmur, rub or gallop is appreciated. Respiratory: Lungs are clear to auscultation bilaterally, respirations are non-labored, breath sounds are equal. Gastrointestinal: Soft, non-tender abdomen There is no rebound or guarding present. Bowel sounds are unremarkable. Hepatomegaly is noted. There is distention consistent with ascites. Musculoskeletal: Normal ROM, no tenderness, There is +1 pedal edema. There is no calf tenderness or swelling. No cords were appreciated. Neurological: CN II-XII intact, there are no obvious motor or sensory deficits. Coordination appears grossly intact. Speech is normal. Skin: Skin is warm and dry . Marked jaundice, minimally improved, there is a macular rash to the chest - Labs CBC & Chem 7: 10/26/23 04:59 10/26/23 04:59 Labs: Microbiology - Last 24 Hours (Table) 10/25/23 04:10 Blood Culture - Preliminary Blood 10/25/23 03:55 Blood Culture - Preliminary Blood 10/24/23 18:53 Urine Culture - Final Urine,Voided Assessment and Plan (1) Acute alcoholic hepatitis Current Visit: Yes Status: Acute Code(s): K70.10 - ALCOHOLIC HEPATITIS WITHOUT ASCITES SNOMED Code(s): 9286850 (2) SIRS due to non-infectious process without acute organ dysfunction Current Visit: Yes Status: Acute Code(s): R65.10 - SIRS OF NON-INFECTIOUS ORIGIN W/O ACUTE ORGAN DYSFUNCTION SNOMED Code(s): 267036223748984 (3) Mixed hyperlipidemia Current Visit: Yes Status: Acute Code(s): E78.2 - MIXED HYPERLIPIDEMIA SNOMED Code(s): 218998100 (4) Polysubstance (excluding opioids) dependence Current Visit: Yes Status: Acute Code(s): F19.20 - OTHER PSYCHOACTIVE SUBSTANCE DEPENDENCE, UNCOMPLICATED SNOMED Code(s): 39569182 (5) Thrombocytopenia Current Visit: Yes Status: Acute Code(s): D69.6 - THROMBOCYTOPENIA, UNSPECIFIED SNOMED Code(s): 896522204 (6) Macrocytic anemia Current Visit: Yes Status: Acute Code(s): D53.9 - NUTRITIONAL ANEMIA, UNSPECIFIED SNOMED Code(s): 95474881 (7) Acute renal failure Current Visit: Yes Status: Acute Code(s): N17.9 - ACUTE KIDNEY FAILURE, UNSPECIFIED SNOMED Code(s): 96161991 (8) Alcohol use disorder Current Visit: Yes Status: Acute Priority: Medium Code(s): RAS6196 - SNOMED Code(s): 3849285 (9) Cirrhosis Current Visit: Yes Status: Acute Code(s): K74.60 - UNSPECIFIED CIRRHOSIS OF LIVER SNOMED Code(s): 87662826 (10) Dehydration Current Visit: Yes Status: Acute Code(s): E86.0 - DEHYDRATION SNOMED Code(s): 63140121 (11) Hyperbilirubinemia Current Visit: Yes Status: Acute Code(s): E80.6 - OTHER DISORDERS OF BILIRUBIN METABOLISM SNOMED Code(s): 11029645 (12) Hypotension Current Visit: Yes Status: Acute Code(s): I95.9 - HYPOTENSION, UNSPECIFIED SNOMED Code(s): 65585078 (13) Shock Current Visit: Yes Status: Acute Code(s): R57.9 - SHOCK, UNSPECIFIED SNOMED Code(s): 88423512 (14) Coagulopathy Current Visit: Yes Status: Acute Code(s): D68.9 - COAGULATION DEFECT, UNSPEC IFIED SNOMED Code(s): 32112637 (15) Cholelithiases Current Visit: Yes Status: Acute Code(s): K80.20 - CALCULUS OF GALLBLADDER W/O CHOLECYSTITIS W/O OBSTRUCTION SNOMED Code(s): 711334841 Plan: I will wait on [facility] consultant recommendations. repeat labs in am, he remains on lactulose, CEWA protocol, we'll discontinue his morphine place him on oxycodone 5 mg. He continues on IV fluids thiamine, when necessary Zofran for nausea, he remains on that it drained for blood pressure control, and ceftriaxone for antibiotic coverage. he'll be reevaluated in the next 24 hours
[2023-10-27 12:42] LABS: HCT 34.4 % (39.0-53.0); HGB 11.4 gm/dL (13.0-17.5); Hypochromasia Slight; MCHC 33.2 g/dL (31.0-37.0); MCV 114.2 fL (80.0-100.0); Macrocytosis Marked; Mean Platelet Volume 11.7; RBC 3.01 m/uL (4.30-5.90); RDW 15.6 % (11.5-15.5); WBC 6.8 k/uL (3.8-10.6)
[2023-10-27 13:07] LABS: Platelet Count 91 k/uL (150-450)
[2023-10-27 14:20] LABS: INR 2.1 (<1.2); Prothrombin Time 21.1 sec (10.0-12.5)
[2023-10-27 14:34] LABS: Hypochromasia (M) Present; Lymphocytes # (M) 0.75 k/uL (1.0-4.8); Monocytes # (M) 0.54 k/uL (0-1.0); Neutrophils # (M) 5.51 k/uL (1.3-7.7); Neutrophils % (M) 81 %; Nucleated Red Blood Cells 0 /100 WBC (0-0); Target Cells Present; Total Cells Counted 100
[2023-10-27 15:09] LABS: ALT 115 U/L (4-49); AST 522 U/L (17-59); African American GFR (CKD) >90 (>60 ml/min/1.73 sqM); Albumin/Globulin Ratio 0.6; Alkaline Phosphatase 135 U/L (38-126); Anion Gap 11 mmol/L; Blood Urea Nitrogen 14 mg/dL (9-20); Calcium 7.6 mg/dL (8.4-10.2); Carbon Dioxide 17 mmol/L (22-30); Chloride 106 mmol/L (98-107); Globulin 3.6 g/dL; Glucose 190 mg/dL (74-99); Non-African American GFR(CKD) >90 (>60 ml/min/1.73 sqM); Potassium 3.9 mmol/L (3.5-5.1); Sodium 134 mmol/L (137-145); Total Bilirubin 14.1 mg/dL (0.2-1.3); Total Protein 5.6 g/dL (6.3-8.2)
[2023-10-28] MEDS: MIDODRINE 5 MG TAB PO SCH ×2 (06:05→11:44)
[2023-10-28 07:11] VITALS: BP 108/58; PULSE 90; RESP 20; TEMP 98.2
[2023-10-28] MEDS: THIAMINE 100 MG TAB PO SCH (07:28)
[2023-10-28] MEDS: LACTULOSE 20 GM/30 ML CUP PO SCH (07:31)
[2023-10-28 10:24] LABS: Basophils # (A) 0.06 X 10*3/uL (0.00-0.10); Basophils % (A) 0.7 %; Eosinophils # (A) 0.05 X 10*3/uL (0.04-0.35); Eosinophils % (A) 0.6 %; HCT 28.5 % (39.6-50.0); HGB 10.4 g/dL (13.0-17.0); Lymphocytes % (A) 24.8 %; MCH 36.2 pg (27.0-32.0); MCHC 36.5 g/dL (32.0-37.0); MCV 99.3 FL (80.0-97.0); Mean Platelet Volume 12.3 FL (9.5-12.2); Monocytes # (A) 1.32 X 10*3/uL (0.20-1.00); Monocytes % (A) 15.6 %; NRBC Per 100 WBC 0 X 10*3/uL (0.00-0.01); Neutrophils # (A) 4.93 X 10*3/uL (1.80-7.70); Neutrophils % (A) 58.1 %; Platelet Count 83 X 10*3/uL (140-440); RBC 2.87 X 10*6/uL (4.40-5.60); RDW 16.8 % (11.5-14.5); WBC 8.48 X 10*3/uL (4.50-10.00)
[2023-10-28 10:42] LABS: ALT 124 U/L (10-49); AST 422 U/L (14-35); Albumin 2.2 g/dL (3.8-4.9); Albumin/Globulin Ratio 0.81 Ratio (1.60-3.17); Alkaline Phosphatase 138 U/L (41-126); BUN/Creat Ratio 12.33 Ratio (12.00-20.00); Blood Urea Nitrogen 11.1 mg/dL (9.0-27.0); Carbon Dioxide 19.5 mmol/L (21.6-31.8); Chloride 106 mmol/L (96-109); Globulin 2.7 g/dL (1.6-3.3); Glucose 98 mg/dL (70-110); Potassium 3.7 mmol/L (3.5-5.5); Sodium 136 mmol/L (135-145); Total Bilirubin 14.9 mg/dL (0.3-1.2); Total Protein 4.9 g/dL (6.2-8.2)
[2023-10-28 11:19] LABS: INR 2.08 sec (0.93-1.11); Prothrombin Time 21.4 sec (9.9-11.9)
--- NOTE | 2023-10-28 11:19 | P.PN ---
Subjective Progress Note Date: 10/28/23 Principal diagnosis: Liver failure. I am seeing this patient in new consultation in the emergency room, room 5, after being sent in from his pain clinic. The patient was jaundiced and reportedly had low blood pressures in the office. Patient is a 43-year-old white male with past medical history significant for alcoholism, polysubstance abuse, hypertension, hyperlipidemia, chronic pain, incarceration. Patient is seen in the pain clinic for chronic lower back pain. Patient also has history of polysubstance abuse. His last alcoholic drink was about 1 week ago. States he usually drinks between 12-18, 12 ounce beers per day. He was noted to be jaundiced and reportedly had low blood pressures while at the office. Earlier in the week he reported some abdominal pain. States his urine has been orange. Denies any change in his bowel movements or pale stools. No nausea, vomiting or diarrhea. Denies fevers. LFTs were elevated with a 2>1 ratio. AST 528, ALT 104, ALP 161. Total bilirubin elevated at 16.4. Ammonia 14. Amylase and lipase not elevated. Gallbladder ultrasound demonstrated cirrhotic liver, moderate ascites, distended gallbladder with cholelithiasis negative sonographic Cardona sign. Follow-up CT abdomen redemonstrated cirrhotic hepatic morphology, moderate abdominal pelvic ascites and mesenteric edema, moderate diffuse body wall edema suggestive of anasarca, distended gallbladder with 5.4 mm intraluminal gallstone. Small infrarenal saccular aneurysm. Small sliding hiatal hernia. Currently, the patient is lying in bed, on room air, in no acute distress. Abdomen is soft and nonpainful. Cardona sign negative. Blood pressure is hypotensive despite 3 L normal saline bolus. Patient is going to be started on norepinephrine. CBC: WBC count 8.2, hemoglobin 12.3, hematocrit 37.2, platelets 97. Coagulation profile: INR of 1.9 and a PTT of 32.1. Patient denies any bleeding. BMP: Sodium 132, potassium 4.1, chloride 99, serum bicarb 22, BUN 26, creatinine 2.47, glucose 128. Lactic acid 2.2 and is down to 1.9. Troponin 0.016. Afebrile. Patient will be admitted to the intensive care unit. The patient is seen today 10/26/2023 in follow-up in the intensive care unit. He is currently resting in bed. Awake and alert in no acute distress. He remains significantly jaundiced. He is maintaining O2 saturations in the 90s on room air. He is receiving normal saline at 130 ML's per hour. His norepinephrine has been off since 9 AM this morning. He remains on midodrine. Urine culture revealed no growth. White count 8.3. Hemoglobin 10.8. Platelets 84,000. INR 2.0. Sodium 134. Potassium 3.6. Bicarb 20. BUN 21. Creatinine 1.33. Glucose 111. Calcium 7.6. AST 506. ALT 105. Ammonia level 46. Pro- calcitonin was 0.44. Hepatitis screen was nonreactive. Remains on lactulose. Antibiotics in the form of ceftriaxone. Remains in the CIWA protocol. The patient is seen today 10/27/2023 in follow-up on the regular medical floor. He is currently resting comfortably in bed. Awake and alert in no acute distress. Continues to maintain good O2 saturations in the mid to upper 90s on room air. He's afebrile. Hemodynamically stable. He did undergo a paracentesis yesterday with 1.4 L of transudate fluid removed. Cytology is pending. Urine culture revealed no growth. Blood cultures reveal no growth. Today's labs are pending. He remains on lactulose. Continued on antibiotics in the form of ceftriaxone. Remains in the CIWA protocol. Remains on thiamine supplements. Continued on midodrine. Remains on normal saline at 60 ML's per hour. Progress note dated 10/28/2023. The patient is seen today in room 455. The patient is not requiring any supplemental oxygen. Is getting saline at 60 mL an hour. The patient is doing about the same today as he was yesterday. Current laboratory data includes a white count 8.48, hemoglobin 10.4, hematocrit 28.5, and a platelet count of 83,000. Sodium 136, potassium 3.7, chlorides 106, CO2 20, anion gap 11, BUN 11.1, and creatinine 0.9. Glucose 98. Bilirubin is 14.9. AST is 422. ALT is 124. Albumin is 2.2. Objective - Vital Signs Vital signs: Vital Signs Temp 98.2 F 10/28/23 07:10 Pulse 90 10/28/23 07:10 Resp 20 10/28/23 07:10 BP 108/58 10/28/23 07:10 Pulse Ox 97 10/28/23 07:10 FiO2 Intake & Output 10/27/23 10/28/23 10/28/23 18:59 06:59 18:59 Intake Total 118 Balance 118 Intake: Oral 118 Other: Voiding Method Urinal # Voids 2 2 - Exam No acute distress, oriented 3. Severe jaundice. HEENT examination is grossly unremarkable. Scleral icterus is noted. Neck supple. Full range of motion. No adenopathy thyromegaly or neck vein distention. Cardiovascular examination reveals regular rhythm rate. S1-S2 normal. No S3 or S4. No discernible murmur noted. Heart rate is 90 bpm. Heart sounds are distant. Lungs reveal mostly clear breath sounds. Scattered rhonchi are noted. No crackles. Breath sounds are equal bilaterally. Room air saturation is 97%. Abdomen soft bowel sounds are heard. No masses or tenderness. Extremities are intact. No cyanosis clubbing or edema. Skin is without rash or lesion. Neurologic examination is brief but nonfocal. - Labs CBC & Chem 7: 10/28/23 03:29 10/28/23 03:29 Labs: Abnormal Lab Results - Last 24 Hours (Table) 10/27/23 10/27/23 10/27/23 Range/Units 09:39 12:50 14:28 RBC 3.01 L (4.30-5.90) m/uL Hgb 11.4 L (13.0-17.5) gm/dL Hct 34.4 L (39.0-53.0) % MCV 114.2 H (80.0-100.0) fL MCH 38.0 H (25.0-35.0) pg RDW 15.6 H (11.5-15.5) % Plt Count 91 L (150-450) k/uL MPV (9.5-12.2) FL Lymphocytes # (Manual) 0.75 L (1.0-4.8) k/uL Monocytes # (0.20-1.00) X 10*3/uL Macrocytosis Marked A PT 21.1 H (10.0-12.5) sec INR 2.1 H (<1.2) Sodium 134 L (137-145) mmol/L Carbon Dioxide 17 L (22-30) mmol/L Glucose 190 H (74-99) mg/dL Calcium 7.6 L (8.4-10.2) mg/dL Total Bilirubin 14.1 H (0.2-1.3) mg/dL AST 522 H (17-59) U/L ALT 115 H (4-49) U/L Alkaline Phosphatase 135 H (38-126) U/L Total Protein 5.6 L (6.3-8.2) g/dL Albumin 2.0 L (3.5-5.0) g/dL Albumin/Globulin Ratio (1.60-3.17) Ratio 10/28/23 10/28/23 Range/Units 03:29 03:29 RBC 2.87 L (4.30-5.90) m/uL Hgb 10.4 L (13.0-17.5) gm/dL Hct 28.5 L (39.0-53.0) % MCV 99.3 H (80.0-100.0) fL MCH 36.2 H (25.0-35.0) pg RDW 16.8 H (11.5-15.5) % Plt Count 83 L (150-450) k/uL MPV 12.3 H (9.5-12.2) FL Lymphocytes # (Manual) (1.0-4.8) k/uL Monocytes # 1.32 H (0.20-1.00) X 10*3/uL Macrocytosis PT (10.0-12.5) sec INR (<1.2) Sodium (137-145) mmol/L Carbon Dioxide 19.5 L (22-30) mmol/L Glucose (74-99) mg/dL Calcium 8.0 L (8.4-10.2) mg/dL Total Bilirubin 14.9 H (0.2-1.3) mg/dL AST 422 H (17-59) U/L ALT 124 H (4-49) U/L Alkaline Phosphatase 138 H (38-126) U/L Total Protein 4.9 L (6.3-8.2) g/dL Albumin 2.2 L (3.5-5.0) g/dL Albumin/Globulin Ratio 0.81 L (1.60-3.17) Ratio Microbiology - Last 24 Hours (Table) 10/25/23 04:10 Blood Culture - Preliminary Blood 10/25/23 03:55 Blood Culture - Preliminary Blood Assessment and Plan Assessment: Hypotension and shock, refractory to fluid replacement, requiring vasopressors. Hyperbilirubinemia, rule out acute cholecystitis/cholangitis/SBP. Gallbladder ultrasound demonstrated cirrhotic liver, moderate ascites, distended gallbladder with cholelithiasis, and negative sonographic Cardona sign. Follow-up CT abdomen redemonstrated cirrhotic hepatic morphology, moderate abdominal pelvic ascites and mesenteric edema, moderate diffuse body wall edema suggestive of anasarca, distended gallbladder with 5.4 mm intraluminal gallstone, no significant biliary dilation seen. There were other incidental findings. Alcoholic liver cirrhosis and ascites. Paracentesis performed 10/26/2023 with 1.4 L removed. Acute kidney injury. Anemia with thrombocytopenia. Transaminitis with coagulopathy. Hyperammonemia. Chronic alcoholism. History of polysubstance abuse. Hyperlipidemia. History of hypertension. Hypoalbuminemia. Chronic pain. History of incarceration. Plan: Plan dated 10/28/2023. The patient is seen today in room 455. The patient remains on saline at 60 mL an hour. Labs, x-rays, and medications are reviewed. The patient's overall prognosis remains poor. He still quite jaundiced, and has a bilirubin that is greater than 14. We will continue to follow make recommendations along the way. The patient's overall prognosis remains poor. He does continue to drink alcohol. Time with Patient: Less than 30
--- NOTE | 2023-10-28 11:29 | P.PN ---
Subjective Patient is seen for follow-up for acute kidney injury. Currently maintained on IV fluids. Blood pressure is much better and patient is off of vasopressors. Maintained on midodrine. Serum creatinine improved to 0.9 from 1.8 No complaints today. Objective - Vital Signs Vital signs: Vital Signs Temp 98.2 F 10/28/23 07:10 Pulse 90 10/28/23 07:10 Resp 20 10/28/23 07:10 BP 108/58 10/28/23 07:10 Pulse Ox 97 10/28/23 07:10 FiO2 Intake & Output 10/27/23 10/28/23 10/28/23 18:59 06:59 18:59 Intake Total 118 Balance 118 Intake: Oral 118 Other: Voiding Method Urinal # Voids 2 2 - Exam Patient is awake, comfortable, no acute distress Alert oriented 3 Examination of the heart S1 and S2 Examination of the lungs bilateral breath sounds are heard Abdomen is soft obese nontender Examination of lower extremities shows trace edema. - Labs CBC & Chem 7: 10/28/23 03:29 10/28/23 03:29 Labs: Abnormal Lab Results - Last 24 Hours (Table) 10/27/23 10/27/23 10/27/23 Range/Units 09:39 12:50 14:28 RBC 3.01 L (4.30-5.90) m/uL Hgb 11.4 L (13.0-17.5) gm/dL Hct 34.4 L (39.0-53.0) % MCV 114.2 H (80.0-100.0) fL MCH 38.0 H (25.0-35.0) pg RDW 15.6 H (11.5-15.5) % Plt Count 91 L (150-450) k/uL MPV (9.5-12.2) FL Lymphocytes # (Manual) 0.75 L (1.0-4.8) k/uL Monocytes # (0.20-1.00) X 10*3/uL Macrocytosis Marked A PT 21.1 H (10.0-12.5) sec INR 2.1 H (<1.2) Sodium 134 L (137-145) mmol/L Carbon Dioxide 17 L (22-30) mmol/L Glucose 190 H (74-99) mg/dL Calcium 7.6 L (8.4-10.2) mg/dL Total Bilirubin 14.1 H (0.2-1.3) mg/dL AST 522 H (17-59) U/L ALT 115 H (4-49) U/L Alkaline Phosphatase 135 H (38-126) U/L Total Protein 5.6 L (6.3-8.2) g/dL Albumin 2.0 L (3.5-5.0) g/dL Albumin/Globulin Ratio (1.60-3.17) Ratio 10/28/23 10/28/23 10/28/23 Range/Units 03:29 03:29 03:29 RBC 2.87 L (4.30-5.90) m/uL Hgb 10.4 L (13.0-17.5) gm/dL Hct 28.5 L (39.0-53.0) % MCV 99.3 H (80.0-100.0) fL MCH 36.2 H (25.0-35.0) pg RDW 16.8 H (11.5-15.5) % Plt Count 83 L (150-450) k/uL MPV 12.3 H (9.5-12.2) FL Lymphocytes # (Manual) (1.0-4.8) k/uL Monocytes # 1.32 H (0.20-1.00) X 10*3/uL Macrocytosis PT 21.4 H (10.0-12.5) sec INR 2.08 H (<1.2) Sodium (137-145) mmol/L Carbon Dioxide 19.5 L (22-30) mmol/L Glucose (74-99) mg/dL Calcium 8.0 L (8.4-10.2) mg/dL Total Bilirubin 14.9 H (0.2-1.3) mg/dL AST 422 H (17-59) U/L ALT 124 H (4-49) U/L Alkaline Phosphatase 138 H (38-126) U/L Total Protein 4.9 L (6.3-8.2) g/dL Albumin 2.2 L (3.5-5.0) g/dL Albumin/Globulin Ratio 0.81 L (1.60-3.17) Ratio Microbiology - Last 24 Hours (Table) 10/25/23 04:10 Blood Culture - Preliminary Blood 10/25/23 03:55 Blood Culture - Preliminary Blood Assessment and Plan Assessment: 1. Acute kidney injury secondary to hypotension and hyperbilirubinemia, ATN currently nonoliguric. Bilirubin level 14.4 UA shows WBCs 162 RBCs 20, blood and protein not documented. CT of the abdomen does not show any obstructive uropathy 2. Liver cirrhosis from EtOH abuse 3. Pyuria rule out UTI 4. History of hypertension Plan: DC IV fluids Continue with midodrine Okay for discharge from nephrology standpoint.
--- NOTE | 2023-10-28 12:02 | P.DS ---
Providers Date of admission: 10/24/23 20:26 Attending physician: Ady Campbell Consults: 10/24/23 20:34 Consult Physician Routine Consulting Provider: Edwina German Consult Reason/Comments: cirrhosis Do you want consulting provider notified?: Yes 10/24/23 20:37 Consult Physician Routine Consulting Provider: Sunil Gutierrez Consult Reason/Comments: [facility] Do you want consulting provider notified?: Yes 10/25/23 02:24 Consult Physician Routine Consulting Provider: Jose Carlos Russo Consult Reason/Comments: Hypotensive, Acute Renal Failure, Hyperbilirubinemia Do you want consulting provider notified?: Yes, Notify in am Primary care physician: Angel Jaimes - Kari Diagnosis(es) (1) Acute alcoholic hepatitis Current Visit: Yes Status: Acute (2) SIRS due to non-infectious process without acute organ dysfunction Current Visit: Yes Status: Acute (3) Mixed hyperlipidemia Current Visit: Yes Status: Acute (4) Polysubstance (excluding opioids) dependence Current Visit: Yes Status: Acute (5) Thrombocytopenia Current Visit: Yes Status: Acute (6) Macrocytic anemia Current Visit: Yes Status: Acute (7) Acute renal failure Current Visit: Yes Status: Acute (8) Alcohol use disorder Current Visit: Yes Status: Acute Priority: Medium (9) Cirrhosis Current Visit: Yes Status: Acute (10) Dehydration Current Visit: Yes Status: Acute (11) Hyperbilirubinemia Current Visit: Yes Status: Acute (12) Hypotension Current Visit: Yes Status: Acute (13) Shock Current Visit: Yes Status: Acute (14) Coagulopathy Current Visit: Yes Status: Acute (15) Cholelithiases Current Visit: Yes Status: Acute Hospital Course: 10/25/23 This is a 43-year-old male known to our nurse practitioner in the practice. He is noncompiant and has not been seen in the past 6 months. He is an alcoholic and has been drinking 30+ years. Indicates he's quit drinking off and on. He was seen by Dr. Jensen, his pain management, physician, who found his urine to beDark and his blood pressure very low at that time. He was directed in the emergency room. He was found to have significant abnormal laboratory studies With alcoholic cirrhosis, ascites, and acute kidney injury mostly up had a renal syndrome. There is a noted coagulopathy on his labs as well. Currently, the patient is resting comfortably is on pressors for blood pressure. Denies any lightheaded, dizziness, other than standing. No chest pain pressure, short breath, no nausea or vomiting this time no diarrhea or constipation 10/26/2023: Patient resting comfortably intensive care unit. He is much more visibly jaundiced today. He denies any chest pains pressures short of breath nausea vomiting. Blood pressure is stable with him off pressors at this time he is on room air. He is on antibiotic coverage with ceftriaxone. Hemoglobin remains 10 8. Platelets are 84. Marked macrocytosis noted. INR today is 2.0. Blood chemistries BUN 21 creatinine 1.33 sodium was 134 potassium 36. ALT slightly increased from 93-105. AST is worsened from 415 to 506. 10/27/2023: Patient resting comfortably in his bed. He appears slightly less jaundiced today appears to be some clearing of his hands and legs. He does complain of some mild abdominal pain. He denies any chest pains, pressures, short of breath. He was admitted for hepatorenal syndrome with acute renal failure on top of acute cirrhosis. He was hypotensive and this is since resolved. Most recent blood pressure 116/65. He remains on room air 97%, pulse rate and respiratory rate are normal. Laboratory studies are pending for today. Nephrology critical care/pulmonology notes reviewed today. 10/28/2023: Patient remains comfortable in bed. He remains quite jaundiced but it is improved based on the clearing of his arms. His vitals remained stable, his laboratory studies as far as liver tests remained about the same. Kidney tests are improved. He would like to be discharged home at this time. He is eating and drinking normally. He is stooling multiple times a day. I discussed this case with Drs. Santana and that with his kidney function improvement and minimal treatment she can safely sent home. The patient and I discussed drinking at length and that continuation of alcohol would kill him. Also he would not be allowed to take Tylenol at this time due to his liver tests. He understands that. He indicates he is done with drinking at this time. He will plan on following up with us in the office in 2 days and with GI and their office in the next several days. He understands that his liver function may predispose him to confusion and that he needs to take the medication lactulose regularly to help prevent that. He reports he does have his mother to keep an eye on him. He understands that returning alcohol would be lethal in his case. Patient Condition at Discharge: Serious Plan - Discharge Summary New Discharge Prescriptions: New Lactulose [Cephulac] 30 gm PO DAILY 30 Days #900 gm Midodrine [ProAmatine] 10 mg PO AC-TID #90 tab Thiamine [Vitamin B-1] 100 mg PO DAILY #30 tab oxyCODONE HCL [OxyIR] 5 mg PO Q6HR PRN tab PRN Reason: Pain Continue Gabapentin [Neurontin] 300 mg PO TID lisinopriL [Zestril] 10 mg PO DAILY Metoprolol Succinate (ER) [Toprol XL] 50 mg PO DAILY Discontinued Hydrocodone/Acetaminophen [[place] 10-325] 1 tab PO TID PRN PRN Reason: Pain Ibuprofen [Motrin] 800 mg PO Q8H PRN PRN Reason: Pain Atorvastatin [Lipitor] 20 mg PO DAILY Discharge Medication List Gabapentin [Neurontin] 300 mg PO TID 04/28/20 [History] lisinopriL [Zestril] 10 mg PO DAILY 08/31/21 [History] Metoprolol Succinate (ER) [Toprol XL] 50 mg PO DAILY 10/24/23 [History] Lactulose [Cephulac] 30 gm PO DAILY 30 Days #900 gm 10/28/23 [Rx] Midodrine [ProAmatine] 10 mg PO AC-TID #90 tab 10/28/23 [Rx] Thiamine [Vitamin B-1] 100 mg PO DAILY #30 tab 10/28/23 [Rx] oxyCODONE HCL [OxyIR] 5 mg PO Q6HR PRN tab 10/28/23 [Rx] Follow up Appointment(s)/Referral(s): Angel Jaimes Jr, DO [Primary Care Provider] - 1-2 days Edwina German MD [STAFF PHYSICIAN] - 3 Days Discharge Disposition: HOME SELF-CARE
== END 2023-10-28 14:06 | disposition home or self-care (01) | DRG 432 ==
LOC: EC 17:23 → 5NMEDONC 20:26 → 2SICU 10-25 05:17 → 4SSUR 10-26 18:17
PROVIDERS: ADMIT Family Medicine; ATTEND Family Medicine
PROC: 0W9G3ZZ Drainage of Peritoneal Cavity, Percutaneous Approach (ICD-10-PCS; principal; 2023-10-24)
PROC: 3E033XZ Introduction of Vasopressor into Peripheral Vein, Percutaneous Approach (ICD-10-PCS; 2023-10-24)
DX: K70.31 Alcoholic cirrhosis of liver with ascites (principal); K76.7 Hepatorenal syndrome; N17.0 Acute kidney failure with tubular necrosis; D68.9 Coagulation defect, unspecified; R57.9 Shock, unspecified; R65.10 Systemic inflammatory response syndrome (SIRS) of non-infectious origin without acute organ dysfunction; K70.11 Alcoholic hepatitis with ascites; D75.89 Other specified diseases of blood and blood-forming organs; E86.0 Dehydration; F10.20 Alcohol dependence, uncomplicated; E78.2 Mixed hyperlipidemia; E88.09 Other disorders of plasma-protein metabolism, not elsewhere classified; G89.29 Other chronic pain; F41.9 Anxiety disorder, unspecified; I10 Essential (primary) hypertension; K80.20 Calculus of gallbladder without cholecystitis without obstruction; K82.8 Other specified diseases of gallbladder; D53.9 Nutritional anemia, unspecified; D69.59 Other secondary thrombocytopenia; Z79.899 Other long term (current) drug therapy; Z88.0 Allergy status to penicillin; K44.9 Diaphragmatic hernia without obstruction or gangrene; I78.1 Nevus, non-neoplastic
CPT/HCPCS: 36415; 49083; 74176; 76705; 80053; 80074; 81001; 82042; 82140; 82150; 83605; 83690; 83735; 84100; 84145; 84157; 84484; 85025; 85027; 85610; 85730; 87040; 87086; 88108; 88305; 89050; 93005; 96361; 96365; 96372; 96375; 96376; 99285

== ENCOUNTER → 2023-11-08 | Outpatient (CLI) | payer MEDICARE, OTHER ==
[2023-11-08 17:32] LABS: INR 2.1 (<1.2); Prothrombin Time 20.9 sec (10.0-12.5)
[2023-11-09 03:09] LABS: Basophils # (A) 0.06 X 10*3/uL (0.00-0.10); Basophils % (A) 0.6 %; Eosinophils % (A) 0.9 %; HCT 30.5 % (39.6-50.0); Lymphocytes # (A) 1.76 X 10*3/uL (0.90-5.00); Lymphocytes % (A) 16.5 %; MCH 36.8 pg (27.0-32.0); MCHC 36.1 g/dL (32.0-37.0); Monocytes # (A) 0.93 X 10*3/uL (0.20-1.00); Monocytes % (A) 8.7 %; NRBC Per 100 WBC 0 X 10*3/uL (0.00-0.01); Neutrophils # (A) 7.73 X 10*3/uL (1.80-7.70); Neutrophils % (A) 72.6 %; Platelet Count 121 X 10*3/uL (140-440); RBC 2.99 X 10*6/uL (4.40-5.60); RDW 15.8 % (11.5-14.5); WBC 10.65 X 10*3/uL (4.50-10.00)
[2023-11-09 03:39] LABS: BUN/Creat Ratio 15.05 Ratio (12.00-20.00); Blood Urea Nitrogen 28.6 mg/dL (9.0-27.0); Glucose 153 mg/dL (70-110)
[2023-11-09 03:40] LABS: ALT 65 U/L (10-49); AST 118 U/L (14-35); Albumin 2.4 g/dL (3.8-4.9); Albumin/Globulin Ratio 0.77 Ratio (1.60-3.17); Alkaline Phosphatase 155 U/L (41-126); Calcium 8.6 mg/dL (8.7-10.3); Carbon Dioxide 20.2 mmol/L (21.6-31.8); Chloride 95 mmol/L (96-109); Globulin 3.1 g/dL (1.6-3.3); Potassium 4.6 mmol/L (3.5-5.5); Sodium 126 mmol/L (135-145); Total Bilirubin 20.9 mg/dL (0.3-1.2); Total Protein 5.5 g/dL (6.2-8.2)
== END | disposition home or self-care (01) ==
LOC: LABWHC1 15:51
PROVIDERS: ATTEND Internal Medicine Gastroenterology
DX: K70.30 Alcoholic cirrhosis of liver without ascites (principal)
CPT/HCPCS: 36415; 80053; 85025; 85610

== ENCOUNTER 2023-11-11 03:12 | Inpatient (IN) | payer MEDICARE, OTHER ==
--- NOTE | 2023-11-11 03:35 | ED ---
Weakness HPI - General Stated complaint: Difficulty Breathing Time Seen by Provider: 11/11/23 03:14 Source: patient, EMS, RN notes reviewed, old records reviewed Mode of arrival: EMS Limitations: no limitations - History of Present Illness Initial comments: This is a 43-year-old male to the emergency department for evaluation today. Patient presents today for evaluation regards to severe weakness shortness of breath swelling of his belly not feeling well. MD Complaint: generalized weakness Consistency: constant Improves with: none Worsens with: none Context: history of similar Associated Symptoms: denies other symptoms - Related Data Home Medications Medication Instructions Recorded Confirmed Gabapentin [Neurontin] 300 mg PO TID 04/28/20 11/11/23 lisinopriL [Zestril] 10 mg PO DAILY 08/31/21 11/11/23 Metoprolol Succinate (ER) [Toprol 50 mg PO DAILY 10/24/23 11/11/23 XL] Previous Rx's Medication Instructions Recorded Lactulose [Cephulac] 30 gm PO DAILY 30 Days #900 gm 10/28/23 Midodrine [ProAmatine] 10 mg PO AC-TID #90 tab 10/28/23 Thiamine [Vitamin B-1] 100 mg PO DAILY #30 tab 10/28/23 oxyCODONE HCL [OxyIR] 5 mg PO Q6HR PRN tab 10/28/23 Allergies Allergy/AdvReac Type Severity Reaction Status Date / Time Penicillins Allergy Unknown Verified 11/11/23 14:16 Childhood Review of Systems ROS Statement: Those systems with pertinent positive or pertinent negative responses have been documented in the HPI. ROS Other: All systems not noted in ROS Statement are negative. Past Medical History Past Medical History: Chest Pain / Angina, Hyperlipidemia, Hypertension Additional Past Medical History / Comment(s): "high liver enzymes",lower back pain, degenerative disk disease,herniated disk, History of Any Multi-Drug Resistant Organisms: None Reported Past Surgical History: Orthopedic Surgery Additional Past Surgical History / Comment(s): rt hand surgery, oral surgery Past Anesthesia/Blood Transfusion Reactions: No Reported Reaction Past Psychological History: Anxiety Smoking Status: Current every day smoker Past Alcohol Use History: Daily Past Drug Use History: Marijuana, Methamphetamine - Past Family History Father Family Medical History: Cancer General Exam Limitations: no limitations General appearance: alert, in no apparent distress Head exam: Present: atraumatic, normocephalic, normal inspection Eye exam: Present: normal appearance, PERRL, EOMI. Absent: scleral icterus, conjunctival injection, periorbital swelling ENT exam: Present: normal exam, mucous membranes moist Neck exam: Present: normal inspection. Absent: tenderness, meningismus, lymphadenopathy Respiratory exam: Present: normal lung sounds bilaterally. Absent: respiratory distress, wheezes, rales, rhonchi, stridor Cardiovascular Exam: Present: regular rate, normal rhythm, normal heart sounds. Absent: systolic murmur, diastolic murmur, rubs, gallop, clicks GI/Abdominal exam: Present: soft, normal bowel sounds. Absent: distended, tenderness, guarding, rebound, rigid Extremities exam: Present: normal inspection, full ROM, normal capillary refill. Absent: tenderness, pedal edema, joint swelling, calf tenderness Back exam: Present: normal inspection Neurological exam: Present: alert, oriented X3, CN II-XII intact Psychiatric exam: Present: normal affect, normal mood Skin exam: Present: warm, dry, intact, normal color. Absent: rash Course Vital Signs 11/11/23 11/11/23 11/11/23 03:13 03:50 04:18 Temperature 97.6 F Pulse Rate 78 102 H 66 Pulse Rate [ Left] Respiratory 26 H 20 20 Rate Blood Pressure 83/37 84/34 102/86 Blood Pressure [Left Arm] O2 Sat by Pulse 98 97 98 Oximetry 11/11/23 11/11/23 11/11/23 09:15 10:25 12:10 Temperature 97.9 F 98.7 F Pulse Rate 75 93 74 Pulse Rate [ Left] Respiratory 20 18 19 Rate Blood Pressure 79/45 81/45 75/36 Blood Pressure [Left Arm] O2 Sat by Pulse 97 96 95 Oximetry 11/11/23 11/11/23 11/11/23 13:02 17:30 18:26 Temperature Pulse Rate 94 92 74 Pulse Rate [ Left] Respiratory 18 24 20 Rate Blood Pressure 83/37 99/50 104/53 Blood Pressure [Left Arm] O2 Sat by Pulse 97 98 97 Oximetry 11/11/23 11/11/23 19:45 19:57 Temperature 97.4 F L Pulse Rate 78 Pulse Rate [ 111 H Left] Respiratory 18 18 Rate Blood Pressure 101/49 Blood Pressure 83/53 [Left Arm] O2 Sat by Pulse 99 98 Oximetry - Reevaluation(s) Reevaluation #1: 11/11/23 04:15 Medical record is reviewed Reevaluation #2: Patient symptoms are unchanged Reevaluation #3: Patient informed results and questions answered Reevaluation #4: Was pt. sent in by a medical professional or institution ([facility], [facility], urgent care, hospital, or [facility]...) When possible be specific @ -no Did you speak to anyone other than the patient for history (EMS, parent, family, police, friend...)? What history was obtained from this source @ -no Did you review nursing and triage notes (agree or disagree)? Why? @ -agree Are old charts reviewed (outside hosp., previous admission, EMS record, old EKG, old radiological studies, urgent care reports/EKG's, [facility] records)? Report findings @ -yes Differential Diagnosis (chest pain, altered mental status, abdominal pain women, abdominal pain men, vaginal bleeding, weakness, fever, dyspnea, syncope, headache, dizziness, GI bleed, back pain, seizure, CVA, palpatations, mental health, musculoskeletal)? @ -prior EKG interpreted by me (3pts min.). @ -yes X-rays interpreted by me (1pt min.). @ -yes negative for acute disease CT interpreted by me (1pt min.). @ -farzad negative for acute disease U/S interpreted by me (1pt. min.). @ -no What testing was considered but not performed or refused? (CT, X-rays, U/S, labs)? Why? @ -none What meds were considered but not given or refused? Why? @ -none Did you discuss the management of the patient with other professionals (professionals i.e. [facility], [facility], lab, RT, psych nurse, social insurance administrator, teacher nursery school, teacher, weapons officer, embedded case manager)? Give summary @ -no Was smoking cessation discussed for >3mins.? @ -no Was critical care preformed (if so, how long)? @ -yes31 Were there social determinants of health that impacted care today? How? (Homelessness, low income, unemployed, alcoholism, drug addiction, transportation, low edu. Level, literacy, decrease access to med. care, long-term, rehab)? @ -none Was there de-escalation of care discussed even if they declined (Discuss DNR or withdrawal of care, Hospice)? DNR status @ -no What co-morbidities impacted this encounter? (DM, HTN, Smoking, COPD, CAD, Cancer, CVA, ARF, Chemo, Hep., AIDS, mental health diagnosis, sleep apnea, morbid obesity)? @ -none Was patient admitted / discharged? Hospital course, mention meds given and route, prescriptions, significant lab abnormalities, going to OR and other pertinent info. @ - 43 male will be admitted for severe dehydration cirrhosis and ascites, patient is in significant distress with labile blood pressure here in the ER today. Patient does have recent diagnosis of liver failure with end-stage liver disease. Patient will be admitted for supportive care Admitted Undiagnosed new problem with uncertain prognosis? @ -no Drug Therapy requiring intensive monitoring for toxicity (Heparin, Nitro, Insulin, Cardizem)? @ -no Were any procedures done? @ -no Diagnosis/symptom? @ -Liver failure, hypertension Acute, or Chronic, or Acute on Chronic? @ -Acute Uncomplicated (without systemic symptoms) or Complicated (systemic symptoms)? @ -Complicated Side effects of treatment? @ -no Exacerbation, Progression, or Severe Exacerbation? @ -exacerbation Poses a threat to life or bodily function? How? (Chest pain, USA, OK, pneumonia, PE, COPD, DKA, ARF, appy, cholecystitis, CVA, Diverticulitis, Homicidal, Suicidal, threat to staff... and all critical care pts) @ -yes Reevaluation #5: 11/11/23 04:15 Differential Weakness: Hypoglycemia, shock, sepsis, hyponatremia, anemia, infection, OK, ETOH, adverse medicine reaction, overdose, stroke, this is not meant to be an all-inclusive list. EKG Findings - EKG Comments: EKG Findings:: EKG is sinus 61 WA 156 QRS 96 QTc 453 - EKG Results: EKG: interpreted by DILLAND Medical Decision Making - Medical Decision Making 43 male will be admitted for severe dehydration cirrhosis and ascites, patient is in significant distress with labile blood pressure here in the ER today. Patient does have recent diagnosis of liver failure with end-stage liver disease. Patient will be admitted for supportive care - Lab Data Result diagrams: 11/13/23 08:47 11/13/23 05:42 Lab Results 11/11/23 11/11/23 11/11/23 Range/Units 03:23 03:23 03:23 WBC 12.0 H (3.8-10.6) k/uL RBC 2.99 L (4.30-5.90) m/uL Hgb 11.2 L (13.0-17.5) gm/dL Hct 33.0 L (39.0-53.0) % MCV 110.1 H (80.0-100.0) fL MCH 37.6 H (25.0-35.0) pg MCHC 34.1 (31.0-37.0) g/dL RDW 14.4 (11.5-15.5) % Plt Count 110 L (150-450) k/uL MPV 12.1 Neutrophils % (Manual) 77 % Lymphocytes % (Manual) 15 % Monocytes % (Manual) 7 % Eosinophils % (Manual) 1 % Neutrophils # (Manual) 9.24 H (1.3-7.7) k/uL Lymphocytes # (Manual) 1.80 (1.0-4.8) k/uL Monocytes # (Manual) 0.84 (0-1.0) k/uL Eosinophils # (Manual) 0.12 (0-0.7) k/uL Nucleated RBCs 0 (0-0) /100 WBC Manual Slide Review Performed Large Platelets Present Poikilocytosis (manual Present Macrocytosis Marked A Target Cells Present PT 21.4 H (10.0-12.5) sec INR 2.1 H (<1.2) APTT 34.4 H (22.0-30.0) sec Sodium 125 L (137-145) mmol/L Potassium 4.4 (3.5-5.1) mmol/L Chloride 97 L (98-107) mmol/L Carbon Dioxide 16 L (22-30) mmol/L Anion Gap 12 mmol/L BUN 36 H (9-20) mg/dL Creatinine 2.55 H (0.66-1.25) mg/dL Est GFR (CKD-EPI)AfAm 34 (>60 ml/min/1.73 sqM) Est GFR (CKD-EPI)NonAf 30 (>60 ml/min/1.73 sqM) Glucose 122 H (74-99) mg/dL Lactic Ac Sepsis Rflx Plasma Lactic Acid Sherif (0.7-2.0) mmol/L Calcium 8.0 L (8.4-10.2) mg/dL Phosphorus 4.9 H (2.5-4.5) mg/dL Magnesium 2.0 (1.6-2.3) mg/dL Total Bilirubin 19.6 H* (0.2-1.3) mg/dL AST 119 H (17-59) U/L ALT 57 H (4-49) U/L Alkaline Phosphatase 162 H (38-126) U/L Ammonia (<30) umol/L Troponin I (0.000-0.034) ng/mL Total Protein 6.1 L (6.3-8.2) g/dL Albumin 2.1 L (3.5-5.0) g/dL 11/11/23 11/11/23 11/11/23 Range/Units 03:23 03:23 04:12 WBC (3.8-10.6) k/uL RBC (4.30-5.90) m/uL Hgb (13.0-17.5) gm/dL Hct (39.0-53.0) % MCV (80.0-100.0) fL MCH (25.0-35.0) pg MCHC (31.0-37.0) g/dL RDW (11.5-15.5) % Plt Count (150-450) k/uL MPV Neutrophils % (Manual) % Lymphocytes % (Manual) % Monocytes % (Manual) % Eosinophils % (Manual) % Neutrophils # (Manual) (1.3-7.7) k/uL Lymphocytes # (Manual) (1.0-4.8) k/uL Monocytes # (Manual) (0-1.0) k/uL Eosinophils # (Manual) (0-0.7) k/uL Nucleated RBCs (0-0) /100 WBC Manual Slide Review Large Platelets Poikilocytosis (manual Macrocytosis Target Cells PT (10.0-12.5) sec INR (<1.2) APTT (22.0-30.0) sec Sodium (137-145) mmol/L Potassium (3.5-5.1) mmol/L Chloride (98-107) mmol/L Carbon Dioxide (22-30) mmol/L Anion Gap mmol/L BUN (9-20) mg/dL Creatinine (0.66-1.25) mg/dL Est GFR (CKD-EPI)AfAm (>60 ml/min/1.73 sqM) Est GFR (CKD-EPI)NonAf (>60 ml/min/1.73 sqM) Glucose (74-99) mg/dL Lactic Ac Sepsis Rflx Y Plasma Lactic Acid Sherif 2.3 H* (0.7-2.0) mmol/L Calcium (8.4-10.2) mg/dL Phosphorus (2.5-4.5) mg/dL Magnesium (1.6-2.3) mg/dL Total Bilirubin (0.2-1.3) mg/dL AST (17-59) U/L ALT (4-49) U/L Alkaline Phosphatase (38-126) U/L Ammonia 26 (<30) umol/L Troponin I <0.012 (0.000-0.034) ng/mL Total Protein (6.3-8.2) g/dL Albumin (3.5-5.0) g/dL - Radiology Data Radiology results: report reviewed (CT the abdomen and pelvis is negative for acute disease), image reviewed Critical Care Time Critical Care Time: Yes Total Critical Care Time: 31 Disposition Clinical Impression: Acute renal failure, Weakness, Dehydration, Alcohol abuse, Acute alcoholic hepatitis, Hypotension, Psychosis, Alcohol use disorder, Shock Disposition: ADMITTED IP TO THIS [facility] Condition: Critical Is patient prescribed a controlled substance at d/c from ED?: No Time of Disposition: 06:00
[2023-11-11] MEDS ORDERED: SODIUM CHLORIDE 0.9% 1,000 ML IV STA (03:36)
[2023-11-11] MEDS ORDERED: MORPHINE SULFATE 2 MG/ML SYRINGE IVP STA (03:36)
[2023-11-11 04:01] LABS: ALT 57 U/L (4-49); AST 119 U/L (17-59); African American GFR (CKD) 34 (>60 ml/min/1.73 sqM); Albumin 2.1 g/dL (3.5-5.0); Alkaline Phosphatase 162 U/L (38-126); Anion Gap 12 mmol/L; Blood Urea Nitrogen 36 mg/dL (9-20); Carbon Dioxide 16 mmol/L (22-30); Chloride 97 mmol/L (98-107); Glucose 122 mg/dL (74-99); Non-African American GFR(CKD) 30 (>60 ml/min/1.73 sqM); Phosphorus 4.9 mg/dL (2.5-4.5); Potassium 4.4 mmol/L (3.5-5.1); Sodium 125 mmol/L (137-145); Total Protein 6.1 g/dL (6.3-8.2)
[2023-11-11 04:12] LABS: Lactic Acid, Venous 2.3 mmol/L (0.7-2.0)
[2023-11-11 04:13] LABS: Total Bilirubin 19.6 mg/dL (0.2-1.3)
[2023-11-11 04:54] LABS: HGB 11.2 gm/dL (13.0-17.5); MCH 37.6 pg (25.0-35.0); MCHC 34.1 g/dL (31.0-37.0); Macrocytosis Marked; Mean Platelet Volume 12.1; Platelet Count 110 k/uL (150-450); RBC 2.99 m/uL (4.30-5.90); RDW 14.4 % (11.5-15.5)
[2023-11-11 05:18] LABS: MCV 110.1 fL (80.0-100.0)
[2023-11-11 05:22] LABS: INR 2.1 (<1.2); Partial Thromboplastin Time 34.4 sec (22.0-30.0); Prothrombin Time 21.4 sec (10.0-12.5)
[2023-11-11] MEDS ORDERED: NALOXONE 0.4 MG/ML 1 ML VIAL IV PRN (05:40)
[2023-11-11] MEDS ORDERED: MORPHINE SULFATE 4 MG/ML SYRINGE IV PRN (05:40)
[2023-11-11 05:57] LABS: Eosinophils # (M) 0.12 k/uL (0-0.7); Monocytes # (M) 0.84 k/uL (0-1.0); Neutrophils # (M) 9.24 k/uL (1.3-7.7); Neutrophils % (M) 77 %; Nucleated Red Blood Cells 0 /100 WBC (0-0); Total Cells Counted 100
[2023-11-11 05:58] LABS: Large Platelets Present; Poikilocytosis (M) Present; Target Cells Present
[2023-11-11] MEDS: PANTOPRAZOLE 40 MG/10 ML VIAL IV SCH (09:14)
--- NOTE | 2023-11-11 14:19 | P.HPIM ---
History of Present Illness H&P Date: 11/11/23 Chief Complaint: Completely jaundiced 43-year-old male well-known to the practice long-standing history of alcoholism, states he stopped drinking shortly after Thanksgiving he presents today with scleral icterus his skin is completely yellow general malaise bilirubin is 19 c urrently complains of nausea otherwise awake alert and oriented 3 Review of Systems Constitutional: Reports as per HPI (Scleral icterus), Reports fatigue, Reports malaise, Reports night sweats Ears, nose, mouth and throat: Reports as per HPI Cardiovascular: Reports as per HPI, Reports high blood pressure Respiratory: Reports as per HPI Gastrointestinal: Reports abdominal pain Genitourinary: Reports as per HPI, Reports decreased libido Musculoskeletal: Reports as per HPI Integumentary: Reports color changes (Significant jaundice), Reports pruritus Neurological: Reports as per HPI Psychiatric: Reports as per HPI Endocrine: Reports as per HPI Past Medical History Past Medical History: Chest Pain / Angina, Hyperlipidemia, Hypertension Additional Past Medical History / Comment(s): "high liver enzymes",lower back pain, degenerative disk disease,herniated disk, History of Any Multi-Drug Resistant Organisms: None Reported Past Surgical History: Orthopedic Surgery Additional Past Surgical History / Comment(s): rt hand surgery, oral surgery Past Anesthesia/Blood Transfusion Reactions: No Reported Reaction Past Psychological History: Anxiety Smoking Status: Current every day smoker Past Alcohol Use History: Daily Past Drug Use History: Marijuana, Methamphetamine - Past Family History Father Family Medical History: Cancer Medications and Allergies Home Medications Medication Instructions Recorded Confirmed Type Gabapentin [Neurontin] 300 mg PO TID 04/28/20 10/24/23 History lisinopriL [Zestril] 10 mg PO DAILY 08/31/21 10/24/23 History Metoprolol Succinate (ER) [Toprol 50 mg PO DAILY 10/24/23 10/24/23 History XL] Lactulose [Cephulac] 30 gm PO DAILY 30 Days #900 gm 10/28/23 Rx Midodrine [ProAmatine] 10 mg PO AC-TID #90 tab 10/28/23 Rx Thiamine [Vitamin B-1] 100 mg PO DAILY #30 tab 10/28/23 Rx oxyCODONE HCL [OxyIR] 5 mg PO Q6HR PRN tab 10/28/23 Rx Allergies Allergy/AdvReac Type Severity Reaction Status Date / Time Penicillins Allergy Unknown Verified 11/11/23 03:18 Childhood Physical Exam Osteopathic Statement: *. No significant issues noted on an osteopathic structural exam other than those noted in the History and Physical/Consult. Vitals: Vital Signs Temp Pulse Resp BP Pulse Ox 11/11/23 13:02 94 18 83/37 97 11/11/23 12:10 98.7 F 74 19 75/36 95 11/11/23 10:25 93 18 81/45 96 11/11/23 09:15 97.9 F 75 20 79/45 97 11/11/23 04:18 66 20 102/86 98 11/11/23 03:13 97.6 F 78 26 H 83/37 98 Intake and Output 11/10/23 11/11/23 11/11/23 22:59 06:59 14:59 Other: Weight 140.614 kg General: [Patient awake, alert and oriented times 3. Patient in no acute distress.] HEENT: [PERRL. EOMI. No pharyngeal erythema or exudate. Scleral icterus Neck: [No adenopathy.] Cardiac: [Heart regular in rate and rhythm. No S3. No S4. No clicks, rubs. No murmur.] Lungs: [Clear to auscultation bilaterally.] Abdomen: [No mass. No organomegaly. Bowel sounds presnt and normoactive in all 4 quadrants. Liver enlarged, abdomen distended Extremes: [No edema no cyanosis no claudication normal pulses] : Normal male genitalia Musculoskeletal: [No joint erythema, edema or tenderness.] Skin: Completely jaundice Neurologic: [No lateralizing deficits. CN II - XII grossly intact.] Lymphatic: [No adenopathy.] Results CBC & Chem 7: 11/11/23 03:23 11/11/23 03:23 Labs: Abnormal Lab Results - Last 24 Hours (Table) 11/11/23 11/11/23 11/11/23 Range/Units 03:23 03:23 03:23 WBC 12.0 H (3.8-10.6) k/uL RBC 2.99 L (4.30-5.90) m/uL Hgb 11.2 L (13.0-17.5) gm/dL Hct 33.0 L (39.0-53.0) % MCV 110.1 H (80.0-100.0) fL MCH 37.6 H (25.0-35.0) pg Plt Count 110 L (150-450) k/uL Neutrophils # (Manual) 9.24 H (1.3-7.7) k/uL Macrocytosis Marked A PT 21.4 H (10.0-12.5) sec INR 2.1 H (<1.2) APTT 34.4 H (22.0-30.0) sec Sodium 125 L (137-145) mmol/L Chloride 97 L (98-107) mmol/L Carbon Dioxide 16 L (22-30) mmol/L BUN 36 H (9-20) mg/dL Creatinine 2.55 H (0.66-1.25) mg/dL Glucose 122 H (74-99) mg/dL Plasma Lactic Acid Sherif (0.7-2.0) mmol/L Calcium 8.0 L (8.4-10.2) mg/dL Phosphorus 4.9 H (2.5-4.5) mg/dL Total Bilirubin 19.6 H* (0.2-1.3) mg/dL AST 119 H (17-59) U/L ALT 57 H (4-49) U/L Alkaline Phosphatase 162 H (38-126) U/L Total Protein 6.1 L (6.3-8.2) g/dL Albumin 2.1 L (3.5-5.0) g/dL 11/11/23 Range/Units 03:23 WBC (3.8-10.6) k/uL RBC (4.30-5.90) m/uL Hgb (13.0-17.5) gm/dL Hct (39.0-53.0) % MCV (80.0-100.0) fL MCH (25.0-35.0) pg Plt Count (150-450) k/uL Neutrophils # (Manual) (1.3-7.7) k/uL Macrocytosis PT (10.0-12.5) sec INR (<1.2) APTT (22.0-30.0) sec Sodium (137-145) mmol/L Chloride (98-107) mmol/L Carbon Dioxide (22-30) mmol/L BUN (9-20) mg/dL Creatinine (0.66-1.25) mg/dL Glucose (74-99) mg/dL Plasma Lactic Acid Sherif 2.3 H* (0.7-2.0) mmol/L Calcium (8.4-10.2) mg/dL Phosphorus (2.5-4.5) mg/dL Total Bilirubin (0.2-1.3) mg/dL AST (17-59) U/L ALT (4-49) U/L Alkaline Phosphatase (38-126) U/L Total Protein (6.3-8.2) g/dL Albumin (3.5-5.0) g/dL Thrombosis Risk Factor Assmnt - DVT/VTE Prophylaxis DVT/VTE Prophylaxis: Mechanical Prophylaxis ordered Assessment and Plan (1) Acute renal failure Current Visit: Yes Status: Acute Code(s): N17.9 - ACUTE KIDNEY FAILURE, UNSPECIFIED SNOMED Code(s): 52473589 (2) Dehydration Current Visit: Yes Status: Acute Code(s): E86.0 - DEHYDRATION SNOMED Code(s): 51756557 (3) Weakness Current Visit: Yes Status: Acute Code(s): R53.1 - WEAKNESS SNOMED Code(s): 93288779 (4) Acute alcoholic hepatitis Current Visit: No Status: Acute Code(s): K70.10 - ALCOHOLIC HEPATITIS WITHOUT ASCITES SNOMED Code(s): 9803007 (5) Alcohol abuse Current Visit: No Status: Acute Code(s): F10.10 - ALCOHOL ABUSE, UNCOMPLICATED SNOMED Code(s): 02768269 (6) Cholelithiases Current Visit: No Status: Acute Code(s): K80.20 - CALCULUS OF GALLBLADDER W/O CHOLECYSTITIS W/O OBSTRUCTION SNOMED Code(s): 620028654 (7) Cirrhosis Current Visit: No Status: Acute Code(s): K74.60 - UNSPECIFIED CIRRHOSIS OF LIVER SNOMED Code(s): 53329716 Plan: Admitted to the hospital Scleral icterus patient totally jaundice bilirubin 19 Consult GI if available Consult radiology for paracentesis CT abdomen and pelvis Continue to follow Time with Patient: Greater than 30
[2023-11-11 14:30] LABS: Amylase 48 U/L (30-110); Lipase 271 U/L (23-300)
[2023-11-11] MEDS ORDERED: SODIUM CHLORIDE 0.9% 500 ML 250 ML IV ONE (15:01)
[2023-11-11] MEDS: SODIUM CHLORIDE 0.9% 1,000 ML IV SCH (15:38)
[2023-11-11 16:10] LABS: Amorphous Sediment,Urine Few /hpf; Cellular Casts,Urine 15 /lpf (0); Mucus,Urine Many /hpf; RBC,Urine 1 /hpf (0-5); Squamous Epithelial Cell,Urine 1 /hpf (0-4); WBC,Urine 7 /hpf (0-5)
[2023-11-11 16:11] LABS: Appearance,Urine Cloudy (Clear); Color,Urine Dark Orange
[2023-11-11] MEDS: MIDODRINE 5 MG TAB PO SCH (17:31)
--- NOTE | 2023-11-11 20:52 | CT ---
EXAMINATION TYPE: CT abdomen pelvis wo con DATE OF EXAM: 11/11/2023 COMPARISON: 10/24/2023 HISTORY: 43-year-old male abdominal distention, Elevated liver enzymes, acute renal failure. GFR 44 x 3 days ago, GFR 30 today. Patient is jaundice. CT DLP: 2212.2 mGycm. Automated exposure control for dose reduction was used. TECHNIQUE: Contiguous axial scanning of the abdomen and pelvis without IV contrast. Coronal and sagit bridget reconstructions performed. FINDINGS: Worsening severe generalized ectasia. Heart normal size. New small left and trace right pleural effus ions with some patchy atelectasis left base. Shrunken cirrhotic morphology of the liver. Moderate abdominopelvic ascites, increased in the interva l. Gallbladder wall thickening likely due to third spacing. Multiple gallstones measuring up to 8 mm sug gested. Unable to adequately assess the bile duct due to ascites and lack of contrast. No hydropic ga llbladder change. Similar diffuse thickening left adrenal gland. Right adrenal gland, spleen, and pancreas show no gross abnormality in alignment for the ascites, iván sarca, lack of contrast. No hydronephrosis in either kidney. Small hiatal hernia. Atherosclerotic calcifications infrarenal abdominal aorta. Some circumferential wall thickening at the cecum and ascending colon. Scattered mild stool. The bladder is collapsed. No pelvic lymphadenopathy seen. Bones: Moderate degenerative disc disease L3-L4. IMPRESSION: 1. Worsening third spacing now with severe anasarca as well as new small left and trace right pleura l effusions. Worsening now moderate abdominopelvic ascites. 2. Underlying cirrhosis. 3. Cholelithiasis. Gallbladder wall thickening likely due to third spacing. No abnormal hydropic yue nge. 4. No hydronephrosis on either side. 5. Circumferential wall thickening cecum and ascending colon could be secondary to hypoalbuminemia o r nonspecific colitis.
[2023-11-11] MEDS ORDERED: SODIUM CHLORIDE 0.9% 500 ML 500 ML IV ONE ×2 (22:10→23:54)
[2023-11-11] MEDS ORDERED: SPIRONOLACTONE 25 MG TAB PO STA (22:11)
[2023-11-11 23:49] LABS: Glucose,Whole Blood 151 mg/dL (70-110)
--- NOTE | 2023-11-12 00:27 | XR ---
EXAM: XR Chest, 1 View CLINICAL HISTORY: ITS.REASON XR Reason: ateam TECHNIQUE: Frontal view of the chest. COMPARISON: No relevant prior studies available. FINDINGS: Lungs: Left base pulmonary opacity. Shallow inspiration. Pleural space: Unremarkable. No pneumothorax. No pleural effusions. Heart: Unremarkable. No cardiomegaly. Mediastinum: Unremarkable. Normal mediastinal contour. Bones/joints: No acute osseous abnormalities. IMPRESSION: Left base pulmonary opacity.
[2023-11-12 00:33] LABS: Glucose,Whole Blood 139 mg/dL (70-110)
[2023-11-12] MEDS: NOREPINEPHRINE 4 MG in SODIUM CHLORIDE 0.9% 250 ML IV SCH ×5 (01:08→18:18)
[2023-11-12] MEDS ORDERED: ONDANSETRON 4 MG/2 ML VIAL IVP PRN (01:09)
[2023-11-12 02:10] LABS: ALT 47 U/L (4-49); AST 99 U/L (17-59); African American GFR (CKD) 41 (>60 ml/min/1.73 sqM); Albumin 1.8 g/dL (3.5-5.0); Alcohol <10 mg/dL; Alkaline Phosphatase 130 U/L (38-126); Anion Gap 8 mmol/L; Blood Urea Nitrogen 37 mg/dL (9-20); Calcium 7.5 mg/dL (8.4-10.2); Carbon Dioxide 17 mmol/L (22-30); Chloride 101 mmol/L (98-107); Glucose 109 mg/dL (74-99); Non-African American GFR(CKD) 36 (>60 ml/min/1.73 sqM); Potassium 4.8 mmol/L (3.5-5.1); Sodium 126 mmol/L (137-145)
[2023-11-12 02:21] LABS: HCT 24.9 % (39.0-53.0); Hypochromasia Slight; MCH 37.3 pg (25.0-35.0); MCHC 32.5 g/dL (31.0-37.0); MCV 114.7 fL (80.0-100.0); Macrocytosis Marked; Mean Platelet Volume 11.3; RBC 2.17 m/uL (4.30-5.90); RDW 14.2 % (11.5-15.5); WBC 9.2 k/uL (3.8-10.6)
[2023-11-12 02:22] LABS: Total Bilirubin 16.3 mg/dL (0.2-1.3); Total Protein 5.1 g/dL (6.3-8.2)
[2023-11-12 02:23] LABS: HGB 8.1 gm/dL (13.0-17.5)
--- NOTE | 2023-11-12 02:37 | P.CNPUL ---
History of Present Illness Consult date: 11/12/23 Requesting physician: Angel Jaimes Jr Reason for consult: other (Hypotension and shock refractory to fluid replacement) Chief complaint: Shortness of breath, swelling, weakness History of present illness: I am seeing this patient in consultation today 11/12/2023 after the patient was transferred to the intensive care unit during an A team earlier this morning. The patient was found to be hypotensive which was refractory to fluid resuscitation, he was transferred to the intensive care unit for vasopressor support. Patient is a 43-year-old male with past medical history significant for long-standing history of alcoholism, alcoholic liver disease, polysubstance abuse, hyperlipidemia, hypertension, chronic pain, and incarceration. The patient actually had a hospitalization on 10/25/2023 with similar symptoms. During this time he did have a paracentesis, and a total of 1.4 L was drained. He did spend a brief period of time in the intensive care unit for hypotension. He was discharged on October 28, with directions to follow up with a GI. His chief complaint, on arrival yesterday morning, was shortness of breath and weakness. He denies any fever, cough, chest pain, hemoptysis. He states that he has increased abdominal swelling as well as swelling in his lower extremities. He has mild abdominal discomfort he describes the pain as generalized bloating and distention. No localized pain. Denies any vomiting, hematemesis, diarrhea, bloody bowel movements, or melanotic stools. States that bowel movements have been relatively normal. He does report some mild nausea. He has been taking lactulose on an outpatient basis. He is alert and oriented. No signs of hepatic encephalopathy. A CT of the abdomen pelvis done on arrival showed worsening third spacing and now with severe anasarca as well as new small left and trace right pleural effusions. Worsening moderate abdominal pelvic ascites. Underlying cirrhosis. There is cholelithiasis with gallbladder wall thickening likely due to third spacing. No abnormal hydropic change. No hydronephrosis. There is circumferential wall thickening of the cecum and ascending colon possibly secondary to hypoalbuminemia or nonspecific colitis. CBC on arrival: WBC count of 12, hemoglobin 11.2, hematocrit 33, platelets 110. Coagulation profile: INR 2.1 and a PTT of 34.4. BMP on arrival: sodium 125, potassium 4.4, chloride 97, serum bicarb 16, BUN 36, creatinine 2.55, glucose 122. LFTs mildly elevated. Total bilirubin 19.6. Ammonia 26. Albumin 2.1. Troponin less than 0.012. Pancreatic enzymes not elevated. Repeat labs are pending. Patient was originally admitted to the general medical floor. Earlier this morning, the patient was found to be severely hypotensive despite multiple fluid boluses. Patient has received a total of 4 L of normal saline boluses since his hospital admission. His midodrine has been restarted and he received a dose yesterday evening. On my evaluation, the patient has just been moved to the intensive care unit. Blood pressure remains hypotensive, and we are in the process of starting a norepinephrine infusion. Normal saline is infusing at 100 ML's per hour. Patient is alert and oriented. He is jaundiced. He is lying on his left side, as this makes him feel most comfortable. He states that he gets short of breath when laying supine on his back. He is currently on 5 L nasal cannula. SpO2 is 98%. Does not appear dyspneic at rest. Follow-up chest x-ray shows reduced lung volumes with a left-sided pleural effusion and probable associated atelectasis. Doubt infectious process. His abdomen is markedly distended. It is soft. Patient reports mild abdominal discomfort and distention. Not particularly painful with manipulation or palpation. He has been afebrile. He will be monitored in the intensive care unit. t Review of Systems REVIEW OF SYSTEMS: CONSTITUTIONAL: Patient reports a 30 pound weight gain since his most recent hospital discharge 2 weeks ago EYES: Denies change in vision. EARS, NOSE, MOUTH, THROAT: Denies headaches, denies sore throat. CARDIOVASCULAR: Denies chest pain, palpitations or syncopal episodes. RESPIRATORY: Denies cough, congestion or hemoptysis. Admits shortness of breath with exertion and when lying on his back. GASTROINTESTINAL: Denies change in appetite, abdominal pain, vomiting, or diarrhea . Admits some mild nausea GENITOURINARY: Denies hematuria, denies infections. MUSKULOSKELETAL: Admit some mild cervicalgia, states is chronic. No cervical radiculopathy symptoms. Does admit increased swelling of his bilateral lower extremities. INTEGUMENTARY: Denies rash, denies eczema. Admits jaundice. NEUROLOGICAL: Denies recent memory loss, no recent seizure activity. PSYCHIATRIC: Denies anxiety, denies depression. HEMATOLOGIC/LYMPHATIC: Denies anemia, denies enlarged lymph node Past Medical History Past Medical History: Chest Pain / Angina, Hyperlipidemia, Hypertension Additional Past Medical History / Comment(s): "high liver enzymes",lower back pain, degenerative disk disease,herniated disk, History of Any Multi-Drug Resistant Organisms: None Reported Past Surgical History: Orthopedic Surgery Additional Past Surgical History / Comment(s): rt hand surgery, oral surgery Past Anesthesia/Blood Transfusion Reactions: No Reported Reaction Past Psychological History: Anxiety Smoking Status: Former smoker Past Alcohol Use History: Daily Additional Past Alcohol Use History / Comment(s): smokes 1 PPD, started smoking age 19 Past Drug Use History: Marijuana, Methamphetamine Additional Drug Use History / Comment(s): alcohol abuse - Past Family History Father Family Medical History: Cancer Medications and Allergies Home Medications Medication Instructions Recorded Confirmed Type Gabapentin [Neurontin] 300 mg PO TID 04/28/20 11/11/23 History lisinopriL [Zestril] 10 mg PO DAILY 08/31/21 11/11/23 History Metoprolol Succinate (ER) [Toprol 50 mg PO DAILY 10/24/23 11/11/23 History XL] Lactulose [Cephulac] 30 gm PO DAILY 30 Days #900 gm 10/28/23 11/11/23 Rx Midodrine [ProAmatine] 10 mg PO AC-TID #90 tab 10/28/23 11/11/23 Rx Thiamine [Vitamin B-1] 100 mg PO DAILY #30 tab 10/28/23 11/11/23 Rx oxyCODONE HCL [OxyIR] 5 mg PO Q6HR PRN tab 10/28/23 11/11/23 Rx Allergies Allergy/AdvReac Type Severity Reaction Status Date / Time Penicillins Allergy Unknown Verified 11/11/23 14:16 Childhood Physical Exam Osteopathic Statement: *. No significant issues noted on an osteopathic structural exam other than those noted in the History and Physical/Consult. Vitals: Vital Signs Temp Pulse Pulse Resp BP BP Pulse Ox 11/11/23 19:57 78 18 101/49 98 11/11/23 19:45 97.4 F L 111 H 18 83/53 99 11/11/23 18:26 74 20 104/53 97 11/11/23 17:30 92 24 99/50 98 11/11/23 13:02 94 18 83/37 97 11/11/23 12:10 98.7 F 74 19 75/36 95 11/11/23 10:25 93 18 81/45 96 11/11/23 09:15 97.9 F 75 20 79/45 97 11/11/23 04:18 66 20 102/86 98 11/11/23 03:50 102 H 20 84/34 97 11/11/23 03:13 97.6 F 78 26 H 83/37 98 Intake and Output 11/11/23 11/11/23 11/12/23 14:59 22:59 06:59 Other: Weight 140.614 kg GENERAL EXAM: Alert, 43-year-old male jaundice, laying on his left side, comfortable in no apparent distress. HEAD: Normocephalic and atraumatic EYES: Normal reaction of pupils, equal size. Icteric sclera NOSE: Clear with pink turbinates. THROAT: No erythema or exudates. NECK: No masses, no JVD. CHEST: No chest wall deformity. LUNGS: Equal air entry with bibasilar dullness. No crackles, wheeze, rhonchi. On 5 L/m nasal cannula. SpO2 98%. No conversational dyspnea or accessory muscle use.. CVS: S1 and S2 normal with grade 2 systolic murmur, regular rhythm. No other extra heart sounds ABDOMEN: Gross ascites and distention, spider angiomas, striae distenase. Negative Cardona sign, no rebound tenderness, no guarding or rigidity. SPINE: No scoliosis or deformity SKIN: Jaundice. CENTRAL NERVOUS SYSTEM: No focal deficits, tone is normal in all 4 extremities. EXTREMITIES: There is generalized edema in all 4 extremities, mild nonpitting. No clubbing, or cyanosis. Peripheral pulses are intact. Results - Laboratory Findings CBC and BMP: 11/12/23 03:07 11/12/23 01:42 PT/INR, D-dimer PT 21.4 sec (10.0-12.5) H 11/11/23 03:23 INR 2.1 (<1.2) H 11/11/23 03:23 Abnormal lab findings: Abnormal Labs 11/11/23 11/11/23 11/11/23 03:23 03:23 03:23 WBC 12.0 H RBC 2.99 L Hgb 11.2 L Hct 33.0 L MCV 110.1 H MCH 37.6 H Plt Count 110 L Neutrophils # (Manual) 9.24 H Macrocytosis Marked A PT 21.4 H INR 2.1 H APTT 34.4 H Sodium 125 L Chloride 97 L Carbon Dioxide 16 L BUN 36 H Creatinine 2.55 H Glucose 122 H POC Glucose (mg/dL) Plasma Lactic Acid Sherif Calcium 8.0 L Phosphorus 4.9 H Total Bilirubin 19.6 H* AST 119 H ALT 57 H Alkaline Phosphatase 162 H Total Protein 6.1 L Albumin 2.1 L Urine WBC Amorphous Sediment Urine Mucus 11/11/23 11/11/23 11/11/23 03:23 15:56 23:48 WBC RBC Hgb Hct MCV MCH Plt Count Neutrophils # (Manual) Macrocytosis PT INR APTT Sodium Chloride Carbon Dioxide BUN Creatinine Glucose POC Glucose (mg/dL) 151 H Plasma Lactic Acid Sherif 2.3 H* Calcium Phosphorus Total Bilirubin AST ALT Alkaline Phosphatase Total Protein Albumin Urine WBC 7 H Amorphous Sediment Few H Urine Mucus Many H 11/12/23 00:31 WBC RBC Hgb Hct MCV MCH Plt Count Neutrophils # (Manual) Macrocytosis PT INR APTT Sodium Chloride Carbon Dioxide BUN Creatinine Glucose POC Glucose (mg/dL) 139 H Plasma Lactic Acid Sherif Calcium Phosphorus Total Bilirubin AST ALT Alkaline Phosphatase Total Protein Albumin Urine WBC Amorphous Sediment Urine Mucus - Diagnostic Findings Chest x-ray: image reviewed Assessment and Plan Assessment: Acute hypoxemic respiratory failure, currently on 5 L/m nasal cannula, likely secondary to gross ascites and bilateral pleural effusions small left and trace on the right, likely hepatic hydrothorax. Chest x-ray demonstrates reduced lung volumes, a left pleural effusion, and likely atelectasis of the left lung base. Infectious infiltrate felt to be less likely. Hypotension and shock, refractory to fluid resuscitation, transferred to the intensive care unit for vasopressor support. Leukocytosis Metabolic anion gap acidosis Dehydration and intravascular volume depletion Acute alcoholic liver disease and ascites Hyperbilirubinemia Cholelithiasis, without evidence of cholecystitis Thrombocytopenia and anemia, secondary to alcoholism and alcoholic liver disease Coagulopathy Hypoalbuminemia Acute kidney injury, secondary to hepatorenal syndrome Hyponatremia, secondary to above History of alcoholism, last drink reportedly over 3 weeks ago History of polysubstance abuse History of hypertension History of hyperlipidemia History of incarceration Plan: Patient's medications, labs, imaging reviewed. Continue supplemental oxygen. Patient remains hypotensive despite 4 L normal saline bolus since admission. Patient was transferred to the intensive care unit earlier this morning during an A-team for refractory hypotension. We are in the process of starting nore pinephrine infusion. Midodrine 10 mg tablets TID with meals have already been restarted. I will hold patient's antihypertensive medications. Empiric antibiotics added for possible SBP, however, clinically the abdomen is not felt to be acute. Patient is afebrile. CT of the abdomen was reviewed. Obtain blood cultures. Patient will likely require a paracentesis, and a consult to interventional radiology is already in place. No signs of hepatic encephalopathy, lactulose was continued. No signs of alcohol withdrawal syndrome. He reportedly has not had a drink in over 3 weeks now. Protonix for GI prophylaxis. Nephrology was added to manage the patient's GARRETT/HRS. We will continue to monitor the patient in the intensive care unit, and further recommendations are forthcoming. I have personally seen and examined the patient, performed the documentation and the assessment and plan as written. Number of minutes spent on the visit:20 Time with Patient: Greater than 30
[2023-11-12 03:08] LABS: Band Neutrophils % 5 %; Lymphocytes # (M) 0.37 k/uL (1.0-4.8); Monocytes # (M) 1.01 k/uL (0-1.0); Neutrophils % (M) 80 %; Nucleated Red Blood Cells 0 /100 WBC (0-0); Total Cells Counted 100
[2023-11-12 03:10] LABS: Crenated RBC Present; Target Cells Present
[2023-11-12 03:11] LABS: Platelet Count 92 k/uL (150-450)
[2023-11-12 03:30] LABS: HCT 28.4 % (39.0-53.0); MCH 37.2 pg (25.0-35.0); Macrocytosis Moderate; Mean Platelet Volume 11.9; RBC 2.67 m/uL (4.30-5.90); RDW 14.6 % (11.5-15.5)
[2023-11-12 03:31] LABS: HGB 9.9 gm/dL (13.0-17.5); MCV 106.4 fL (80.0-100.0)
[2023-11-12 03:32] LABS: Platelet Count 66 k/uL (150-450)
[2023-11-12 03:38] LABS: Magnesium 1.9 mg/dL (1.6-2.3); Phosphorus 4.2 mg/dL (2.5-4.5)
[2023-11-12] MEDS: HALOPERIDOL LACTATE 5 MG/ML 1 ML VIAL IVP PRN ×3 (06:28→17:28)
[2023-11-12] MEDS: SODIUM CHLORIDE 0.9% 1,000 ML IV SCH ×2 (07:47→12:23)
[2023-11-12] MEDS: MIDODRINE 5 MG TAB PO SCH ×3 (08:12→16:42)
[2023-11-12] MEDS: PANTOPRAZOLE 40 MG/10 ML VIAL IV SCH ×2 (08:13→20:36)
[2023-11-12] MEDS: THIAMINE 100 MG TAB PO SCH (08:13)
[2023-11-12] MEDS ORDERED: METOPROLOL SUCCINATE (ER) 50 MG TAB.ER.24H PO SCH (09:00)
[2023-11-12] MEDS ORDERED: lisinopriL 10 MG TAB PO SCH (09:00)
--- NOTE | 2023-11-12 09:18 | US ---
EXAMINATION TYPE: US abdomen limited DATE OF EXAM: 11/12/2023 COMPARISON: NONE CLINICAL INDICATION: Male, 43 years old with history of assess for fluid pocket please; ascites TECHNIQUE AND FINDINGS: Ultrasound examination of all 4 quadrants of the abdomen was performed to assess for ascites. Exam r eported as limited by patient cooperation. There is moderate to large volume ascites noted in all four quadrants, most prominent on the right si de. IMPRESSION: Moderate to large volume ascites noted in all four quadrants, most prominent on the right side.
[2023-11-12] MEDS: LACTULOSE 20 GM/30 ML CUP PO SCH (10:04)
[2023-11-12 11:28] LABS: HCT 27.8 % (39.0-53.0); HGB 9.1 gm/dL (13.0-17.5); MCH 36.7 pg (25.0-35.0); MCHC 32.8 g/dL (31.0-37.0); Macrocytosis Marked; Mean Platelet Volume 11.7; RBC 2.49 m/uL (4.30-5.90); RDW 14.8 % (11.5-15.5); WBC 14.7 k/uL (3.8-10.6)
[2023-11-12 11:51] LABS: INR 2.3 (<1.2); Prothrombin Time 22.7 sec (10.0-12.5)
[2023-11-12 11:53] LABS: MCV 111.7 fL (80.0-100.0)
[2023-11-12 11:54] LABS: Platelet Count 124 k/uL (150-450)
--- NOTE | 2023-11-12 13:06 | P.NPCON ---
History of Present Illness - Reason for Consult acute renal failure - History of Present Illness Patient is a 43-year-old male with history of chronic liver disease associated with EtOH abuse. Patient is admitted to the hospital with yellowish discoloration of his skin, nausea and vomiting and feeling increasingly weak. Transferred to the ICU this morning due to severe hypotension noted on regular medical floor. Patient received 4 L of fluid bolus and is currently maintained on saline at 100 mL an hour. Urine output at 30-40 mL an hour. Serum creatinine was 2.5 yesterday and it is down to 2.1 today. Prior to that serum creatinine was 1.9 on 11/08/2023 and 0.9 on 10/28/2023. Sodium 126 Review of Systems As per HPI Past Medical History Past Medical History: Chest Pain / Angina, Hyperlipidemia, Hypertension Additional Past Medical History / Comment(s): "high liver enzymes",lower back pain, degenerative disk disease,herniated disk, History of Any Multi-Drug Resistant Organisms: None Reported Past Surgical History: Orthopedic Surgery Additional Past Surgical History / Comment(s): rt hand surgery, oral surgery Past Anesthesia/Blood Transfusion Reactions: No Reported Reaction Past Psychological History: Anxiety Smoking Status: Former smoker Past Alcohol Use History: Daily Additional Past Alcohol Use History / Comment(s): smokes 1 PPD, started smoking age 19 Past Drug Use History: Marijuana, Methamphetamine Additional Drug Use History / Comment(s): alcohol abuse - Past Family History Father Family Medical History: Cancer Medications and Allergies Home Medications Medication Instructions Recorded Confirmed Type Gabapentin [Neurontin] 300 mg PO TID 04/28/20 11/11/23 History lisinopriL [Zestril] 10 mg PO DAILY 08/31/21 11/11/23 History Metoprolol Succinate (ER) [Toprol 50 mg PO DAILY 10/24/23 11/11/23 History XL] Lactulose [Cephulac] 30 gm PO DAILY 30 Days #900 gm 10/28/23 11/11/23 Rx Midodrine [ProAmatine] 10 mg PO AC-TID #90 tab 10/28/23 11/11/23 Rx Thiamine [Vitamin B-1] 100 mg PO DAILY #30 tab 10/28/23 11/11/23 Rx oxyCODONE HCL [OxyIR] 5 mg PO Q6HR PRN tab 10/28/23 11/11/23 Rx Allergies Allergy/AdvReac Type Severity Reaction Status Date / Time Penicillins Allergy Unknown Verified 11/11/23 14:16 Childhood Physical Exam Vitals: Vital Signs Temp Pulse Pulse Resp BP BP Pulse Ox 11/12/23 12:15 114 H 22 85/73 96 11/12/23 12:00 87 18 69/42 95 11/12/23 11:45 88 18 89/48 96 11/12/23 11:30 89 28 H 113/46 95 11/12/23 11:15 85 16 112/48 97 11/12/23 11:00 82 15 91/46 96 11/12/23 10:45 80 14 96/60 93 L 11/12/23 10:30 92 17 94/43 93 L 11/12/23 10:15 71 15 88/49 96 11/12/23 10:00 70 13 95/58 96 11/12/23 09:45 76 16 122/52 96 11/12/23 09:30 95 15 80/38 97 11/12/23 09:15 115 H 29 H 188/167 97 11/12/23 09:00 112 H 19 94/81 97 11/12/23 08:45 96 18 83/46 97 11/12/23 08:30 72 13 98/42 97 11/12/23 08:15 92 18 83/37 98 11/12/23 08:00 97.7 F 115 H 19 95 11/12/23 07:45 94 17 72/59 95 11/12/23 07:30 112 H 14 96 11/12/23 07:15 105 H 13 96 11/12/23 07:00 100 22 81/35 95 11/12/23 06:45 108 H 13 97/31 95 11/12/23 06:30 85 12 80/64 98 11/12/23 06:15 82 14 93/56 96 11/12/23 06:00 111 H 59 H 98/60 96 11/12/23 05:45 99 18 111/46 97 11/12/23 05:30 81 14 104/49 98 11/12/23 05:15 74 13 49/33 99 11/12/23 05:00 85 12 70/26 95 11/12/23 04:45 64 12 69/25 92 L 11/12/23 04:30 70 18 88/38 0108/24 04:15 77 17 94/50 93 L 11/12/23 04:00 97.7 F 87 14 78/42 95 11/12/23 03:45 82 12 79/34 98 11/12/23 03:30 79 92 H 91/47 94 L 11/12/23 03:15 64 13 86/76 91 L 11/12/23 03:00 68 8 L 85/44 97 11/12/23 02:45 61 13 90/45 95 11/12/23 02:30 63 13 88/42 95 11/12/23 02:15 72 16 75/42 91 L 11/12/23 02:00 82 18 119/88 97 11/12/23 01:45 81 11 L 111/84 96 11/12/23 01:30 68 12 139/128 96 11/12/23 01:15 61 16 77/53 96 11/12/23 01:00 66 14 76/56 95 11/12/23 00:45 97.5 F L 76 14 95/45 96 11/11/23 19:57 78 18 101/49 98 11/11/23 19:45 97.4 F L 111 H 18 83/53 99 11/11/23 18:26 74 20 104/53 97 11/11/23 17:30 92 24 99/50 98 11/11/23 13:02 94 18 83/37 97 Intake and Output 11/11/23 11/12/23 11/12/23 22:59 06:59 14:59 Intake Total 855.430 907.215 Output Total 300 205 Balance 555.430 702.215 Intake: IV 550 600 Sodium Chloride 0.9% 1, 500 600 000 ml @ 100 mls/hr IV . Q10H POLLY Rx#:[id number] cefTRIAXone 2 gm In 50 Sodium Chloride 0.9% 50 ml @ 100 mls/hr IVPB Q24H POLLY Rx#:[id number] Intake, IV Titration 275.430 307.215 Amount Norepinephrine 4 mg In 275.430 307.215 Sodium Chloride 0.9% 250 ml @ 0.03 MCG/KG/MIN 16. 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 Acute kidney injury secondary to hypotension, rule out hepatorenal syndrome. Patient is maintained on midodrine and IV fluids. I will give 1 dose of albumin and add Sandostatin as well. 2. Hyponatremia associated with liver cirrhosis 3. Non-gap metabolic acidosis associated with acute kidney injury 4. Hyperbilirubinemia associated with alcoholic liver disease 5. Thrombocytopenia associated with chronic liver disease 6. Anemia rule out GI bleed Plan: Continue with IV fluids Continue with midodrine Add Sandostatin IV albumin 1. Repeat labs in a.m. Avoid nephrotoxic medications. Thank you for the consultation. We will continue to follow the patient with you during his hospitalization.
[2023-11-12] MEDS ORDERED: ALBUMIN HUMAN 25% 50 ML in EMPTY BAG 1 BAG IVPB ONE (14:00)
--- NOTE | 2023-11-12 14:47 | P.GSCN ---
History of Present Illness Consult date: 11/12/23 History of present illness: CHIEF COMPLAINT: Not feeling well HISTORY OF PRESENT ILLNESS: This is a 43-year-old male with history of alcohol abuse. He is jaundiced with elevated bilirubin of 19. He had moderate to large amount of ascites on abdominal ultrasound and scheduled for paracentesis today. Patient is currently in the ICU and is hypertensive and on a small amount of Levophed. There is questionable if patient had hematemesis or hemoptysis Sunday or Sunday. He did have a large dark bloody bowel movement this morning. There is no GI service available at this institution this week. Medical service is working on transferring patient to a tertiary care center for the acute GI bleed and liver failure. Surgical service has been consulted due to gallbladder wall thickening that was noted on computed tomography scan. Computed tomography scan reports cholelithiasis. Gallbladder wall thickening likely due to third spacing. No abnormal hydropic change. Worsening third spacing now with severe anasarca as well as a small left and trace right pleural effusions. Worsening moderate abdominal pelvic ascites. Circumferential wall thickening of the cecum and ascending colon could be secondary to hypoalbuminemia or nonspecific colitis. Nephrology has started patient on Sandostatin. Patient is also on antibiotics. He denies any abdominal pain. PAST MEDICAL HISTORY: Chest Pain / Angina, Hyperlipidemia, Hypertension, liver cirrhosis PAST SURGICAL HISTORY: Right hand surgery MEDICATIONS: See below ALLERGIES: See below SOCIAL HISTORY: No illicit drug use. Alcohol abuse REVIEW OF SYSTEMS: CONSTITUTIONAL: Denies fever or chills. HEENT: Denies blurred vision, vision changes, or eye pain. Denies hemoptysis CARDIOVASCULAR: Denies chest pain or pressure. RESPIRATORY: No shortness of breath. GASTROINTESTINAL: See HPI for pertinent findings HEMATOLOGIC: Denies bleeding disorders. GENITOURINARY: Denies any blood in urine or increased urinary frequency. SKIN: Denies pruitis. Denies rash. PHYSICAL EXAM: VITAL SIGNS: Reviewed GENERAL: no acute distress. HEENT: Bilateral scleral icterus ABDOMEN: Soft. Distended. Nontender. Ascites present. NEUROLOGIC: Alert and oriented. Cranial nerves II through XII grossly intact. Skin: Jaundiced LABORATORY DATA: WBC 12 up to 14.7 Hgb 11.2 down to 9.1 platelets 124 INR elevated 2.3 Sodium 126 potassium 4.8 creatinine 2.18 Glucose 109 Lactic acid 2.38 and 1.2 and today 1.6 Total bilirubin 19.6 down to 16.3 AST 119 noted 99 ALT 57 down to 47 alk phos 162 down to 130 Serum alcohol level less than 10 Albumin 1. IMAGING: Computed tomography scan abdomen and pelvis worsening third spacing now with severe anasarca as well as new small left and trace right pleural effusions. W orsening moderate abdominal pelvic ascites. Underlying cirrhosis. Cholelithiasis. Gallbladder wall thickening likely due to third spacing. No abnormal hydropic change. No hydronephrosis. Circumferential wall thickening cecum and ascending colon could be secondary to hypoalbuminemia or nonspecific colitis ASSESSMENT: 1. Gallbladder wall thickening likely due to third spacing noted on computed tomography scan. No right upper quadrant abdominal pain on exam 2. Cholelithiasis 3. Acute GI bleed with black stools and possible episode of hematemesis 4. Circumferential wall thickening of the cecum and ascending colon could be secondary to hypoproteinemia or nonspecific colitis on CT 5. Liver failure with elevated total bilirubin and LFTs 6. History of liver cirrhosis and alcohol abuse 7. Abdominal ascites scheduled for paracentesis PLAN: -Recommend transfer to tertiary care center due to no GI coverage at this facility this week -No surgical intervention planned -Continue supportive care -Increase IV Protonix to twice a day -Continue to monitor hemoglobin -Continue monitor for any signs or symptoms of bleeding -Continue antibiotics Physician Director Hris note has been reviewed by physician. Signing provider agrees with the documented findings, assessment, and plan of care. Past Medical History Past Medical History: Chest Pain / Angina, Hyperlipidemia, Hypertension Additional Past Medical History / Comment(s): "high liver enzymes",lower back pain, degenerative disk disease,herniated disk, History of Any Multi-Drug Resistant Organisms: None Reported Past Surgical History: Orthopedic Surgery Additional Past Surgical History / Comment(s): rt hand surgery, oral surgery Past Anesthesia/Blood Transfusion Reactions: No Reported Reaction Past Psychological History: Anxiety Smoking Status: Former smoker Past Alcohol Use History: Daily Additional Past Alcohol Use History / Comment(s): smokes 1 PPD, started smoking age 19 Past Drug Use History: Marijuana, Methamphetamine Additional Drug Use History / Comment(s): alcohol abuse - Past Family History Father Family Medical History: Cancer Medications and Allergies Home Medications Medication Instructions Recorded Confirmed Type Gabapentin [Neurontin] 300 mg PO TID 04/28/20 11/11/23 History lisinopriL [Zestril] 10 mg PO DAILY 08/31/21 11/11/23 History Metoprolol Succinate (ER) [Toprol 50 mg PO DAILY 10/24/23 11/11/23 History XL] Lactulose [Cephulac] 30 gm PO DAILY 30 Days #900 gm 10/28/23 11/11/23 Rx Midodrine [ProAmatine] 10 mg PO AC-TID #90 tab 10/28/23 11/11/23 Rx Thiamine [Vitamin B-1] 100 mg PO DAILY #30 tab 10/28/23 11/11/23 Rx oxyCODONE HCL [OxyIR] 5 mg PO Q6HR PRN tab 10/28/23 11/11/23 Rx Allergies Allergy/AdvReac Type Severity Reaction Status Date / Time Penicillins Allergy Unknown Verified 11/11/23 14:16 Childhood Surgical - Exam Vital Signs Temp Pulse Resp BP Pulse Ox 97.6 F 78 26 H 83/37 98 11/11/23 03:13 11/11/23 03:13 11/11/23 03:13 11/11/23 03:13 11/11/23 03:13 Results - Labs 11/12/23 11:12 11/12/23 01:42 Abnormal Lab Results - Last 24 Hours (Table) 11/11/23 11/11/23 11/12/23 Range/Units 15:56 23:48 00:31 WBC (3.8-10.6) k/uL RBC (4.30-5.90) m/uL Hgb (13.0-17.5) gm/dL Hct (39.0-53.0) % MCV (80.0-100.0) fL MCH (25.0-35.0) pg Plt Count (150-450) k/uL Neutrophils # (Manual) (1.3-7.7) k/uL Lymphocytes # (Manual) (1.0-4.8) k/uL Monocytes # (Manual) (0-1.0) k/uL Macrocytosis PT (10.0-12.5) sec INR (<1.2) Sodium (137-145) mmol/L Carbon Dioxide (22-30) mmol/L BUN (9-20) mg/dL Creatinine (0.66-1.25) mg/dL Glucose (74-99) mg/dL POC Glucose (mg/dL) 151 H 139 H (70-110) mg/dL Calcium (8.4-10.2) mg/dL Total Bilirubin (0.2-1.3) mg/dL AST (17-59) U/L Alkaline Phosphatase (38-126) U/L Total Protein (6.3-8.2) g/dL Albumin (3.5-5.0) g/dL Urine WBC 7 H (0-5) /hpf Amorphous Sediment Few H (None) /hpf Urine Mucus Many H (None) /hpf 11/12/23 11/12/23 11/12/23 Range/Units 01:42 01:42 03:07 WBC 12.0 H (3.8-10.6) k/uL RBC 2.17 L 2.67 L (4.30-5.90) m/uL Hgb 8.1 L D 9.9 L D (13.0-17.5) gm/dL Hct 24.9 L 28.4 L (39.0-53.0) % MCV 114.7 H 106.4 H D (80.0-100.0) fL MCH 37.3 H 37.2 H (25.0-35.0) pg Plt Count 92 L 66 L (150-450) k/uL Neutrophils # (Manual) 7.80 H (1.3-7.7) k/uL Lymphocytes # (Manual) 0.37 L (1.0-4.8) k/uL Monocytes # (Manual) 1.01 H (0-1.0) k/uL Macrocytosis Marked A PT (10.0-12.5) sec INR (<1.2) Sodium 126 L (137-145) mmol/L Carbon Dioxide 17 L (22-30) mmol/L BUN 37 H (9-20) mg/dL Creatinine 2.18 H (0.66-1.25) mg/dL Glucose 109 H (74-99) mg/dL POC Glucose (mg/dL) (70-110) mg/dL Calcium 7.5 L (8.4-10.2) mg/dL Total Bilirubin 16.3 H* (0.2-1.3) mg/dL AST 99 H (17-59) U/L Alkaline Phosphatase 130 H (38-126) U/L Total Protein 5.1 L (6.3-8.2) g/dL Albumin 1.8 L (3.5-5.0) g/dL Urine WBC (0-5) /hpf Amorphous Sediment (None) /hpf Urine Mucus (None) /hpf 11/12/23 11/12/23 Range/Units 11:12 11:12 WBC 14.7 H (3.8-10.6) k/uL RBC 2.49 L (4.30-5.90) m/uL Hgb 9.1 L (13.0-17.5) gm/dL Hct 27.8 L (39.0-53.0) % MCV 111.7 H D (80.0-100.0) fL MCH 36.7 H (25.0-35.0) pg Plt Count 124 L D (150-450) k/uL Neutrophils # (Manual) (1.3-7.7) k/uL Lymphocytes # (Manual) (1.0-4.8) k/uL Monocytes # (Manual) (0-1.0) k/uL Macrocytosis Marked A PT 22.7 H (10.0-12.5) sec INR 2.3 H (<1.2) Sodium (137-145) mmol/L Carbon Dioxide (22-30) mmol/L BUN (9-20) mg/dL Creatinine (0.66-1.25) mg/dL Glucose (74-99) mg/dL POC Glucose (mg/dL) (70-110) mg/dL Calcium (8.4-10.2) mg/dL Total Bilirubin (0.2-1.3) mg/dL AST (17-59) U/L Alkaline Phosphatase (38-126) U/L Total Protein (6.3-8.2) g/dL Albumin (3.5-5.0) g/dL Urine WBC (0-5) /hpf Amorphous Sediment (None) /hpf Urine Mucus (None) /hpf Diabetes panel 11/12/23 Range/Units 01:42 Sodium 126 L (137-145) mmol/L Potassium 4.8 (3.5-5.1) mmol/L Chloride 101 (98-107) mmol/L Carbon Dioxide 17 L (22-30) mmol/L BUN 37 H (9-20) mg/dL Creatinine 2.18 H (0.66-1.25) mg/dL Glucose 109 H (74-99) mg/dL Calcium 7.5 L (8.4-10.2) mg/dL AST 99 H (17-59) U/L ALT 47 (4-49) U/L Alkaline Phosphatase 130 H (38-126) U/L Total Protein 5.1 L (6.3-8.2) g/dL Albumin 1.8 L (3.5-5.0) g/dL Calcium panel 11/12/23 11/12/23 Range/Units 01:42 03:07 Calcium 7.5 L (8.4-10.2) mg/dL Phosphorus 4.2 (2.5-4.5) mg/dL Albumin 1.8 L (3.5-5.0) g/dL Pituitary panel 11/12/23 Range/Units 01:42 Sodium 126 L (137-145) mmol/L Potassium 4.8 (3.5-5.1) mmol/L Chloride 101 (98-107) mmol/L Carbon Dioxide 17 L (22-30) mmol/L BUN 37 H (9-20) mg/dL Creatinine 2.18 H (0.66-1.25) mg/dL Glucose 109 H (74-99) mg/dL Calcium 7.5 L (8.4-10.2) mg/dL Adrenal panel 11/12/23 Range/Units 01:42 Sodium 126 L (137-145) mmol/L Potassium 4.8 (3.5-5.1) mmol/L Chloride 101 (98-107) mmol/L Carbon Dioxide 17 L (22-30) mmol/L BUN 37 H (9-20) mg/dL Creatinine 2.18 H (0.66-1.25) mg/dL Glucose 109 H (74-99) mg/dL Calcium 7.5 L (8.4-10.2) mg/dL Total Bilirubin 16.3 H* (0.2-1.3) mg/dL AST 99 H (17-59) U/L ALT 47 (4-49) U/L Alkaline Phosphatase 130 H (38-126) U/L Total Protein 5.1 L (6.3-8.2) g/dL Albumin 1.8 L (3.5-5.0) g/dL
[2023-11-12] MEDS: OCTREOTIDE 100 MCG/ML INJ SQ SCH (16:41)
--- NOTE | 2023-11-12 17:38 | P.PN ---
Subjective Progress Note Date: 11/12/23 H&P Date: 11/11/23 Chief Complaint: Completely jaundiced 43-year-old male well-known to the practice long-standing history of alcoholism, states he stopped drinking shortly after Thanksgiving he presents today with scleral icterus his skin is completely yellow general malaise bilirubin is 19 currently complains of nausea otherwise awake alert and oriented 3 11/12/2023 transferred into the ICU related to severe hypotension refractory to 4 L of fluid boluses and Midodrin. Maintained on IV fluid hydration, Levophed initiated. Continues on IV antibiotics. Abdominal ultrasound reporting moderate to large volume ascites noted in all 4 quadrants, most prominent on the right side. Currently denies abdominal pain .INR pending, afebrile. Chest x-ray reporting left base pulmonary opacity. Maintaining O2 sats in the mid 90s on 2 L nasal cannula. Afebrile. WBC increased to 14.7. Rectal bleeding developed this morning with a large dark bloody bowel movement. hemoglobin repeated; decreased to 9.1 from 11.2. MCV 111.7, platelets 124, sodium 126, bicarb 17, BUN 37, creatinine decreased to 2.18, lactic acid 1.7, magnesium 1.9. Total bili decreased to 16.3 from 19.6, AST 99, ALT 47, alk phos 1:30, ammonia 26, total protein 5.1, albumin 1.8. Objective - Vital Signs Vital signs: Vital Signs Temp 97.7 F 11/12/23 08:00 Pulse 114 H 11/12/23 12:15 Resp 22 11/12/23 12:15 BP 85/73 11/12/23 12:15 Pulse Ox 96 11/12/23 12:15 FiO2 Intake & Output 11/11/23 11/12/23 11/12/23 18:59 06:59 18:59 Intake Total 622.046 8295.545 Output Total 300 205 Balance 555.430 874.545 Weight 140.614 kg Intake: IV 550 600 Sodium Chloride 0.9% 1, 500 600 000 ml @ 100 mls/hr IV . Q10H [facility] Rx#:[id number] cefTRIAXone 2 gm In 50 Sodium Chloride 0.9% 50 ml @ 100 mls/hr IVPB Q24H [facility] Rx#:[id number] Intake, IV Titration 275.430 479.545 Amount Norepinephrine 4 mg In 275.430 479.545 Sodium Chloride 0.9% 250 ml @ 0.03 MCG/KG/MIN 16. 072 mls/hr IV .[id number] [facility] Rx#:[id number] Tube Feeding 30 Output: Urine 300 205 Other: Voiding Method Urinal # Bowel Movements 1 - Exam General: [Patient awake, alert and oriented times 2. Patient in no acute distress.] HEENT: [PERRL. EOMI. No pharyngeal erythema or exudate. Scleral icterus Neck: [No adenopathy.] Cardiac: [Heart regular in rate and rhythm. No S3. No S4. No clicks, rubs. No murmur.] Lungs: [Clear to auscultation bilaterally.] Abdomen: Bowel sounds presnt and normoactive in all 4 quadrants. Liver enlarged, abdomen distended, positive ascites, nontender Extremes: [No edema no cyanosis no claudication normal pulses] : Normal male genitalia Musculoskeletal: [No joint erythema, edema or tenderness.] Skin: Completely jaundice Neurologic: [No lateralizing deficits. CN II - XII grossly intact.] - Labs CBC & Chem 7: 11/12/23 11:12 11/12/23 01:42 Labs: Abnormal Lab Results - Last 24 Hours (Table) 11/11/23 11/11/23 11/12/23 Range/Units 15:56 23:48 00:31 WBC (3.8-10.6) k/uL RBC (4.30-5.90) m/uL Hgb (13.0-17.5) gm/dL Hct (39.0-53.0) % MCV (80.0-100.0) fL MCH (25.0-35.0) pg Plt Count (150-450) k/uL Neutrophils # (Manual) (1.3-7.7) k/uL Lymphocytes # (Manual) (1.0-4.8) k/uL Monocytes # (Manual) (0-1.0) k/uL Macrocytosis PT (10.0-12.5) sec INR (<1.2) Sodium (137-145) mmol/L Carbon Dioxide (22-30) mmol/L BUN (9-20) mg/dL Creatinine (0.66-1.25) mg/dL Glucose (74-99) mg/dL POC Glucose (mg/dL) 151 H 139 H (70-110) mg/dL Calcium (8.4-10.2) mg/dL Total Bilirubin (0.2-1.3) mg/dL AST (17-59) U/L Alkaline Phosphatase (38-126) U/L Total Protein (6.3-8.2) g/dL Albumin (3.5-5.0) g/dL Urine WBC 7 H (0-5) /hpf Amorphous Sediment Few H (None) /hpf Urine Mucus Many H (None) /hpf 11/12/23 11/12/23 11/12/23 Range/Units 01:42 01:42 03:07 WBC 12.0 H (3.8-10.6) k/uL RBC 2.17 L 2.67 L (4.30-5.90) m/uL Hgb 8.1 L D 9.9 L D (13.0-17.5) gm/dL Hct 24.9 L 28.4 L (39.0-53.0) % MCV 114.7 H 106.4 H D (80.0-100.0) fL MCH 37.3 H 37.2 H (25.0-35.0) pg Plt Count 92 L 66 L (150-450) k/uL Neutrophils # (Manual) 7.80 H (1.3-7.7) k/uL Lymphocytes # (Manual) 0.37 L (1.0-4.8) k/uL Monocytes # (Manual) 1.01 H (0-1.0) k/uL Macrocytosis Marked A PT (10.0-12.5) sec INR (<1.2) Sodium 126 L (137-145) mmol/L Carbon Dioxide 17 L (22-30) mmol/L BUN 37 H (9-20) mg/dL Creatinine 2.18 H (0.66-1.25) mg/dL Glucose 109 H (74-99) mg/dL POC Glucose (mg/dL) (70-110) mg/dL Calcium 7.5 L (8.4-10.2) mg/dL Total Bilirubin 16.3 H* (0.2-1.3) mg/dL AST 99 H (17-59) U/L Alkaline Phosphatase 130 H (38-126) U/L Total Protein 5.1 L (6.3-8.2) g/dL Albumin 1.8 L (3.5-5.0) g/dL Urine WBC (0-5) /hpf Amorphous Sediment (None) /hpf Urine Mucus (None) /hpf 11/12/23 11/12/23 Range/Units 11:12 11:12 WBC 14.7 H (3.8-10.6) k/uL RBC 2.49 L (4.30-5.90) m/uL Hgb 9.1 L (13.0-17.5) gm/dL Hct 27.8 L (39.0-53.0) % MCV 111.7 H D (80.0-100.0) fL MCH 36.7 H (25.0-35.0) pg Plt Count 124 L D (150-450) k/uL Neutrophils # (Manual) (1.3-7.7) k/uL Lymphocytes # (Manual) (1.0-4.8) k/uL Monocytes # (Manual) (0-1.0) k/uL Macrocytosis Marked A PT 22.7 H (10.0-12.5) sec INR 2.3 H (<1.2) Sodium (137-145) mmol/L Carbon Dioxide (22-30) mmol/L BUN (9-20) mg/dL Creatinine (0.66-1.25) mg/dL Glucose (74-99) mg/dL POC Glucose (mg/dL) (70-110) mg/dL Calcium (8.4-10.2) mg/dL Total Bilirubin (0.2-1.3) mg/dL AST (17-59) U/L Alkaline Phosphatase (38-126) U/L Total Protein (6.3-8.2) g/dL Albumin (3.5-5.0) g/dL Urine WBC (0-5) /hpf Amorphous Sediment (None) /hpf Urine Mucus (None) /hpf Assessment and Plan Assessment: (1) acute blood loss anemia secondary to acute GI bleed with large black stools with clots, possible prior episode of hematemesis (2) hypotension, shock, pressor dependent, (3) acute hypoxic respiratory failure secondary to ascites, bilateral pleural effusions and possible hepatic hydrothorax (2)Acute renal failure Current Visit: Yes Status: Acute Code(s): N17.9 - ACUTE KIDNEY FAILURE, UNSPECIFIED SNOMED Code(s): 05543274 (3) Dehydration, intravascular volume depletion Current Visit: Yes Status: Acute Code(s): E86.0 - DEHYDRATION SNOMED Code(s): 34391541 (4) Weakness Current Visit: Yes Status: Acute Code(s): R53.1 - WEAKNESS SNOMED Code(s): 30552096 (5) Acute alcoholic hepatitis Current Visit: No Status: Acute Code(s): K70.10 - ALCOHOLIC HEPATITIS WITHOUT ASCITES SNOMED Code(s): 8828204 (6) Alcohol abuse, reports last drink was at Thanksgiving Current Visit: No Status: Acute Code(s): F10.10 - ALCOHOL ABUSE, UNCOMPLICATED SNOMED Code(s): 37028833 (7) Cholelithiases, gallbladder wall thickening likely due to third spacing reported per CT. Current Visit: No Status: Acute Code(s): K80.20 - CALCULUS OF GALLBLADDER W/O CHOLECYSTITIS W/O OBSTRUCTION SNOMED Code(s): 529948077 (8) Cirrhosis with abdominal ascites, hyperbilirubinemia Current Visit: No Status: Acute Code(s): K74.60 - UNSPECIFIED CIRRHOSIS OF LIVER SNOMED Code(s): 97235609 (9) Circumferential wall thickening of the cecum and ascending colon could be secondary to hypoproteinemia or nonspecific colitis reported per CT Acute kidney injury, secondary to hypotension, possible hepatorenal syndrome Thrombocytopenia and anemia, secondary to alcoholism and alcoholic liver disease Coagulopathy Hypoalbuminemia Hyponatremia History of hypertension, hyperlipidemia Nicotine dependence History of Polysubstance abuse History of incarceration Plan: Continue on current medication regime ,monitoring and symptomatic va tment. 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 Maintain IV antibiotics, PPI. Close monitoring of CBC .Evaluated by nephrology with Sandostatin added to med regimen.IV albumin. Evaluated by general surgery recommending transfer to tertiary care center. Patient developed acute GI bleeding in addition to his liver failure ,transfer initiated as there is no GI services available this week, at this site. Accepted at [facility], bed pending. Prognosis remains guarded, given multiple complex medical problems. The impression and plan of care has been dictated as directed. : I performed a history and examination of this patient, discussed the same with the dictator. I agree with the dictator's note ,documented as a scribe. Any additional findings or plans will be noted.
[2023-11-13] MEDS: SODIUM CHLORIDE 0.9% 1,000 ML IV SCH ×2 (00:30→08:28)
[2023-11-13] MEDS: OCTREOTIDE 100 MCG/ML INJ SQ SCH ×2 (00:45→08:28)
[2023-11-13] MEDS: HALOPERIDOL LACTATE 5 MG/ML 1 ML VIAL IVP PRN (02:06)
[2023-11-13] MEDS ORDERED: LORazepam 2 MG/ML INJ IV PRN ×3 (02:21)
[2023-11-13] MEDS: NOREPINEPHRINE 4 MG in SODIUM CHLORIDE 0.9% 250 ML IV SCH (02:25)
[2023-11-13 03:00] LABS: ABG Base Excess -19.8 mmol/L; ABG Oxygen Saturation 96.7 % (94-97); ABG PCO2 25 mmHg (35-45); ABG PO2 103 mmHg (83-108); ABG TCO2 10 mmol/L (19-24); Allen Test Performed? Yes
[2023-11-13 03:02] LABS: ABG HCO3 9 mmol/L (21-25); ABG PH 7.16 (7.35-7.45)
[2023-11-13 03:04] LABS: ALT 70 U/L (4-49); AST 141 U/L (17-59); African American GFR (CKD) 32 (>60 ml/min/1.73 sqM); Albumin 1.6 g/dL (3.5-5.0); Alkaline Phosphatase 86 U/L (38-126); Anion Gap 16 mmol/L; Blood Urea Nitrogen 43 mg/dL (9-20); Calcium 7.4 mg/dL (8.4-10.2); Chloride 103 mmol/L (98-107); Glucose 85 mg/dL (74-99); Non-African American GFR(CKD) 27 (>60 ml/min/1.73 sqM); Sodium 127 mmol/L (137-145); Total Protein 4.6 g/dL (6.3-8.2)
[2023-11-13] MEDS ORDERED: SODIUM BICARB 8.4% 50 ML SYR (1 MEQ/ML) IV STA ×4 (03:05→04:03)
[2023-11-13 03:11] LABS: Carbon Dioxide 8 mmol/L (22-30); Potassium 6.1 mmol/L (3.5-5.1); Total Bilirubin 15.8 mg/dL (0.2-1.3)
[2023-11-13] MEDS ORDERED: SODIUM POLYSTYRENE SULFONATE 15 GM/60 ML BOTTLE PO ONE (03:19)
[2023-11-13] MEDS ORDERED: DEXTROSE 50% SYRINGE 50 ML IVP ONE ×2 (03:19→03:26)
[2023-11-13] MEDS ORDERED: CALCIUM GLUCONATE IN NACL 1 GM in SALINE 1 100ML.BAG IVPB ONE (03:19)
[2023-11-13] MEDS ORDERED: INSULIN REGULAR 100 UNIT/ML VIAL (IV) IV ONE (03:19)
[2023-11-13] MEDS ORDERED: ALBUTEROL NEB (CONC) 2.5 MG/0.5 ML INHALATION ONE (03:19)
[2023-11-13] MEDS ORDERED: SODIUM BICARB 8.4% 50 ML SYR (1 MEQ/ML) ONE (03:22)
[2023-11-13 03:32] LABS: HCT 22.5 % (39.0-53.0); Hypochromasia Marked; MCH 38.5 pg (25.0-35.0); Macrocytosis Marked; Mean Platelet Volume 11.1; RBC 1.93 m/uL (4.30-5.90); RDW 14.9 % (11.5-15.5); WBC 15.7 k/uL (3.8-10.6)
[2023-11-13 03:35] LABS: HGB 7.4 gm/dL (13.0-17.5); MCV 116.7 fL (80.0-100.0)
[2023-11-13 03:42] LABS: INR 2.9 (<1.2); Prothrombin Time 28.9 sec (10.0-12.5)
[2023-11-13] MEDS ORDERED: VASOPRESSIN 60 UNIT in SODIUM CHLORIDE 0.9% 150 ML IV SCH (03:45)
[2023-11-13 04:00] LABS: ABG Base Excess -17.2 mmol/L; ABG HCO3 12 mmol/L (21-25); ABG PCO2 38 mmHg (35-45); ABG PO2 164 mmHg (83-108); ABG TCO2 13 mmol/L (19-24); Allen Test Performed? Yes
[2023-11-13 04:02] LABS: ABG PH 7.12 (7.35-7.45)
[2023-11-13 04:03] LABS: Glucose,Whole Blood 170 mg/dL (70-110)
[2023-11-13] MEDS: DEXTROSE 5% IN WATER 1,000 ML with SODIUM BICARB (1 MEQ/ML) 150 ML IV SCH ×2 (04:30→09:58)
[2023-11-13] MEDS ORDERED: propofoL 100 ML IV ONE (04:35)
--- NOTE | 2023-11-13 04:39 | P.PCN ---
Date of Procedure: 11/13/23 Preoperative Diagnosis: Acute hemorrhage and hypovolemic shock Postoperative Diagnosis: Acute hemorrhage and hypovolemic shock Procedure(s) Performed: Insertion of the left wrist radial arterial line Indications for Procedure: Continuous blood pressure monitoring and frequent blood draws Description of Procedure: Informed consent was obtained, and a procedural timeout was performed . The patient was placed in supine position. The left radial region was prepared in a sterile fashion, and a sterile drape was applied. The left radial artery was palpated, easily cannulated, and a guidewire was placed. A Cook catheter was inserted over the guidewire, and the guidewire was removed. There was good arterial blood flow, good arterial waveform, and no complications. The line was secured with using a 3-0 silk suture.
[2023-11-13] MEDS ORDERED: PHYTONADIONE 10 MG in SODIUM CHLORIDE 0.9% 50 ML IVPB STA (04:40)
[2023-11-13] MEDS ORDERED: NOREPINEPHRINE 32 MG in SODIUM CHLORIDE 0.9% 218 ML IV SCH (05:00)
--- NOTE | 2023-11-13 05:47 | XR ---
EXAM: XR Chest, 1 View CLINICAL HISTORY: ITS.REASON XR Reason: Tube placement TECHNIQUE: Frontal view of the chest. COMPARISON: Single view of the chest November 11, 2013 IMPRESSION: 1. Endotracheal tube terminates 4.0 cm above the jack. 2. Hypoinflated lungs with asymmetric left greater than right lung airspace disease.
[2023-11-13 05:59] LABS: ABG Base Excess -17.8 mmol/L; ABG HCO3 11 mmol/L (21-25); ABG PCO2 33 mmHg (35-45); ABG PO2 108 mmHg (83-108); ABG TCO2 12 mmol/L (19-24); Allen Test Performed? Yes
[2023-11-13 06:02] LABS: African American GFR (CKD) 33 (>60 ml/min/1.73 sqM); Anion Gap 15 mmol/L; Blood Urea Nitrogen 41 mg/dL (9-20); Calcium 7.2 mg/dL (8.4-10.2); Carbon Dioxide 11 mmol/L (22-30); Chloride 104 mmol/L (98-107); Glucose 130 mg/dL (74-99); Non-African American GFR(CKD) 29 (>60 ml/min/1.73 sqM); Potassium 5.9 mmol/L (3.5-5.1); Sodium 130 mmol/L (137-145)
[2023-11-13 06:02] LABS: ABG PH 7.14 (7.35-7.45)
[2023-11-13 06:04] LABS: Band Neutrophils % 1 %; Lymphocytes # (M) 2.98 k/uL (1.0-4.8); Monocytes # (M) 0.63 k/uL (0-1.0); Neutrophils % (M) 76 %; Nucleated Red Blood Cells 0 /100 WBC (0-0); Total Cells Counted 100
[2023-11-13 06:05] LABS: Target Cells Present
[2023-11-13 06:06] LABS: Anisocytosis (M) Present; Poikilocytosis (M) Present
[2023-11-13 06:10] LABS: Platelet Count 85 k/uL (150-450)
[2023-11-13] MEDS: MIDODRINE 5 MG TAB PO SCH ×2 (07:06→09:12)
[2023-11-13] MEDS: LACTULOSE 20 GM/30 ML CUP PO SCH (07:55)
[2023-11-13] MEDS: THIAMINE 100 MG TAB PO SCH (07:56)
[2023-11-13] MEDS: PANTOPRAZOLE 40 MG/10 ML VIAL IV SCH (08:28)
[2023-11-13] MEDS ORDERED: CISATRACURIUM 2 MG/ML 5 ML VIAL IV ONE (08:33)
--- NOTE | 2023-11-13 08:36 | ED ---
Medical Decision Making - Medical Decision Making I was called to the intensive care unit as the patient was requiring additional venous access for medications and to probably receive blood products. The consent is emergent as patient is intubated. I did initially attempt placement at the left femoral area but venipuncture was in the artery therefore switched to the right side, after direct pressure was held, with no evidence of further bleeding. The central line was placed without difficulty, see the procedure note. - Lab Data Result diagrams: 11/13/23 02:12 11/13/23 05:42 Lab Results 11/11/23 11/11/23 11/11/23 Range/Units 03:23 03:23 03:23 WBC 12.0 H (3.8-10.6) k/uL RBC 2.99 L (4.30-5.90) m/uL Hgb 11.2 L (13.0-17.5) gm/dL Hct 33.0 L (39.0-53.0) % MCV 110.1 H (80.0-100.0) fL MCH 37.6 H (25.0-35.0) pg MCHC 34.1 (31.0-37.0) g/dL RDW 14.4 (11.5-15.5) % Plt Count 110 L (150-450) k/uL MPV 12.1 Neutrophils % (Manual) 77 % Lymphocytes % (Manual) 15 % Monocytes % (Manual) 7 % Eosinophils % (Manual) 1 % Neutrophils # (Manual) 9.24 H (1.3-7.7) k/uL Lymphocytes # (Manual) 1.80 (1.0-4.8) k/uL Monocytes # (Manual) 0.84 (0-1.0) k/uL Eosinophils # (Manual) 0.12 (0-0.7) k/uL Nucleated RBCs 0 (0-0) /100 WBC Manual Slide Review Performed Large Platelets Present Poikilocytosis (manual Present Macrocytosis Marked A Target Cells Present PT 21.4 H (10.0-12.5) sec INR 2.1 H (<1.2) APTT 34.4 H (22.0-30.0) sec Sodium 125 L (137-145) mmol/L Potassium 4.4 (3.5-5.1) mmol/L Chloride 97 L (98-107) mmol/L Carbon Dioxide 16 L (22-30) mmol/L Anion Gap 12 mmol/L BUN 36 H (9-20) mg/dL Creatinine 2.55 H (0.66-1.25) mg/dL Est GFR (CKD-EPI)AfAm 34 (>60 ml/min/1.73 sqM) Est GFR (CKD-EPI)NonAf 30 (>60 ml/min/1.73 sqM) Glucose 122 H (74-99) mg/dL Lactic Ac Sepsis Rflx Plasma Lactic Acid Sherif (0.7-2.0) mmol/L Calcium 8.0 L (8.4-10.2) mg/dL Phosphorus 4.9 H (2.5-4.5) mg/dL Magnesium 2.0 (1.6-2.3) mg/dL Total Bilirubin 19.6 H* (0.2-1.3) mg/dL AST 119 H (17-59) U/L ALT 57 H (4-49) U/L Alkaline Phosphatase 162 H (38-126) U/L Ammonia (<30) umol/L Troponin I (0.000-0.034) ng/mL Total Protein 6.1 L (6.3-8.2) g/dL Albumin 2.1 L (3.5-5.0) g/dL 11/11/23 11/11/23 11/11/23 Range/Units 03:23 03:23 04:12 WBC (3.8-10.6) k/uL RBC (4.30-5.90) m/uL Hgb (13.0-17.5) gm/dL Hct (39.0-53.0) % MCV (80.0-100.0) fL MCH (25.0-35.0) pg MCHC (31.0-37.0) g/dL RDW (11.5-15.5) % Plt Count (150-450) k/uL MPV Neutrophils % (Manual) % Lymphocytes % (Manual) % Monocytes % (Manual) % Eosinophils % (Manual) % Neutrophils # (Manual) (1.3-7.7) k/uL Lymphocytes # (Manual) (1.0-4.8) k/uL Monocytes # (Manual) (0-1.0) k/uL Eosinophils # (Manual) (0-0.7) k/uL Nucleated RBCs (0-0) /100 WBC Manual Slide Review Large Platelets Poikilocytosis (manual Macrocytosis Target Cells PT (10.0-12.5) sec INR (<1.2) APTT (22.0-30.0) sec Sodium (137-145) mmol/L Potassium (3.5-5.1) mmol/L Chloride (98-107) mmol/L Carbon Dioxide (22-30) mmol/L Anion Gap mmol/L BUN (9-20) mg/dL Creatinine (0.66-1.25) mg/dL Est GFR (CKD-EPI)AfAm (>60 ml/min/1.73 sqM) Est GFR (CKD-EPI)NonAf (>60 ml/min/1.73 sqM) Glucose (74-99) mg/dL Lactic Ac Sepsis Rflx Y Plasma Lactic Acid Sherif 2.3 H* (0.7-2.0) mmol/L Calcium (8.4-10.2) mg/dL Phosphorus (2.5-4.5) mg/dL Magnesium (1.6-2.3) mg/dL Total Bilirubin (0.2-1.3) mg/dL AST (17-59) U/L ALT (4-49) U/L Alkaline Phosphatase (38-126) U/L Ammonia 26 (<30) umol/L Troponin I <0.012 (0.000-0.034) ng/mL Total Protein (6.3-8.2) g/dL Albumin (3.5-5.0) g/dL Disposition Clinical Impression: Acute renal failure, Weakness, Dehydration Disposition: ADMITTED IP TO THIS HOSP Condition: Fair Procedures - [place] Protocol (Time Out) Procedure Performed:: Arterial Line Placement Performing Provider: Wolf Arnett Nurse: Ivonne Stephen Patient Identification (2 identifiers required): Chart, Verbal, Arm Band, Name, Birthdate, Medical Record Number 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
[2023-11-13 08:52] LABS: Glucose,Whole Blood 155 mg/dL (70-110)
[2023-11-13] MEDS ORDERED: CHLORHEXIDINE GLUCONATE 15 ML CUP MUCOUS MEM SCH (09:00)
[2023-11-13 09:23] VITALS: BP 71/55; TEMP 95.9
[2023-11-13 09:56] LABS: Anisocytosis Slight; Basophils % (A) 0 %; Eosinophils % (A) 0 %; HCT 31.6 % (39.0-53.0); Hypochromasia Marked; Lymphocytes # (A) 2.2 k/uL (1.0-4.8); Lymphocytes % (A) 12 %; MCH 36.3 pg (25.0-35.0); MCHC 32.8 g/dL (31.0-37.0); Mean Platelet Volume 12.6; Monocytes # (A) 1.8 k/uL (0-1.0); Monocytes % (A) 10 %; Neutrophils % (A) 76 %; Platelet Count 106 k/uL (150-450); RBC 2.86 m/uL (4.30-5.90); RDW 17.6 % (11.5-15.5); WBC 18.4 k/uL (3.8-10.6)
[2023-11-13 10:19] LABS: Macrocytosis Marked
[2023-11-13 10:21] LABS: HGB 10.4 gm/dL (13.0-17.5); MCV 110.5 fL (80.0-100.0)
--- NOTE | 2023-11-13 10:37 | P.PN ---
Subjective Progress Note Date: 11/13/23 Principal diagnosis: Alcoholic liver disease. I am seeing this patient in consultation today 11/12/2023 after the patient was transferred to the intensive care unit during an A team earlier this morning. The patient was found to be hypotensive which was refractory to fluid resus citation, he was transferred to the intensive care unit for vasopressor support. Patient is a 43-year-old male with past medical history significant for long- standing history of alcoholism, alcoholic liver disease, polysubstance abuse, hyperlipidemia, hypertension, chronic pain, and incarceration. The patient actually had a hospitalization on 10/25/2023 with similar symptoms. During this time he did have a paracentesis, and a total of 1.4 L was drained. He did spend a brief period of time in the intensive care unit for hypotension. He was discharged on October 28, with directions to follow up with a GI. His chief complaint, on arrival yesterday morning, was shortness of breath and weakness. He denies any fever, cough, chest pain, hemoptysis. He states that he has increased abdominal swelling as well as swelling in his lower extremities. He has mild abdominal discomfort he describes the pain as generalized bloating and distention. No localized pain. Denies any vomiting, hematemesis, diarrhea, bloody bowel movements, or melanotic stools. States that bowel movements have been relatively normal. He does report some mild nausea. He has been taking lactulose on an outpatient basis. He is alert and oriented. No signs of hepatic encephalopathy. A CT of the abdomen pelvis done on arrival showed worsening third spacing and now with severe anasarca as well as new small left and trace right pleural effusions. Worsening moderate abdominal pelvic ascites. Underlying cirrhosis. There is cholelithiasis with gallbladder wall thickening likely due to third spacing. No abnormal hydropic change. No hydronephrosis. There is circumferential wall thickening of the cecum and ascending colon possibly secondary to hypoalbuminemia or nonspecific colitis. CBC on arrival: WBC count of 12, hemoglobin 11.2, hematocrit 33, platelets 110. Coagulation profile: INR 2.1 and a PTT of 34.4. BMP on arrival: sodium 125, potassium 4.4, chloride 97, serum bicarb 16, BUN 36, creatinine 2.55, glucose 122. LFTs mildly elevated. Total bilirubin 19.6. Ammonia 26. Albumin 2.1. Troponin less than 0.012. Pancreatic enzymes not elevated. Repeat labs are pending. Patient was originally admitted to the general medical floor. Earlier this morning, the patient was found to be severely hypotensive despite multiple fluid boluses. Patient has received a total of 4 L of normal saline boluses since his hospital admission. His midodrine has been restarted and he received a dose yesterday evening. On my evaluation, the patient has just been moved to the intensive care unit. Blood pressure remains hypotensive, and we are in the process of starting a norepinephrine infusion. Normal saline is infusing at 100 ML's per hour. Patient is alert and oriented. He is jaundiced. He is lying on his left side, as this makes him feel most comfortable. He states that he gets short of breath when laying supine on his back. He is currently on 5 L nasal cannula. SpO2 is 98%. Does not appear dyspneic at rest. Follow-up chest x-ray shows reduced lung volumes with a left-sided pleural effusion and probable associated atelectasis. Doubt infectious process. His abdomen is markedly di stended. It is soft. Patient reports mild abdominal discomfort and distention. Not particularly painful with manipulation or palpation. He has been afebrile. He will be monitored in the intensive care unit. Progress note dated 11/13/2023. 43-year-old male seen yesterday in consultation. The patient was admitted to the intensive care unit, from chronic liver disease, polysubstance abuse, and severe hyperbilirubinemia. The patient was recently inpatient, in October, for basically the same scenario. Last night, the patient developed respiratory failure, acute GI bleed, and required intubation and mechanical ventilation. An arterial line was placed for better blood pressure monitoring. The nurse practitioner call me 2 or 3 times last night, to alert me of the situation, and, as per my advice. The patient was placed on appropriate ventilator settings, and given both norepinephrine, and vasopressin. The patient is seen today in room 259. The patient is on the volume assist control, rate 20, tidal volume 500, FiO2 100%, PEEP of 5. Blood gases show pO2 of 108, pCO2 33, and a pH is 7.14. The patient is currently on a sodium bicarbonate drip at 3 ampules of sodium bicarbonate and D5W 100 mL an hour, norepinephrine at 91 mcg/m, vasopressin at 0.04 units per minute, and propofol 20 mcg/kg/m. The patient's getting saline at 100 mL an hour. He received a total of 3 units of packed red blood cells. I had a long conversation with the patient's mother, stepfather. The patient is a DO NOT RESUSCITATE patient, and apparently the patient's family is considering comfort care. White count 18.4, hemoglobin 10.4, hematocrit 31.6, with a platelet count of 106,000. Sodium 130, potassium 5.9, chlorides 104, CO2 11, anion gap 15, BUN 41, creatinine 2.63. Calcium is 7.2. Chest x- ray shows a properly placed endotracheal tube, with the tip, 4 cm above the jack. Diffuse bilateral infiltrates are noted. Objective - Vital Signs Vital signs: Vital Signs Temp 95.9 F L 11/13/23 08:00 Pulse 134 H 11/13/23 09:00 Resp 77 H 11/13/23 09:00 BP 71/55 11/13/23 08:30 Pulse Ox 96 11/13/23 09:00 FiO2 100 11/13/23 09:00 Intake & Output 11/12/23 11/13/23 11/13/23 18:59 06:59 18:59 Intake Total 2439.930 8900.353 1160.031 Output Total 375 265 85 Balance 0866.371 9328.353 1075.031 Weight 147.3 kg Intake: IV 1200 1350 600 Dextrose 5% in Water 1, 100 300 000 ml @ 100 mls/hr IV . [id number] [facility] with Sodium Bicarb (1 Meq/ml) 150 ml Rx#:[id number] Sodium Chloride 0.9% 1, 1200 1200 300 000 ml @ 100 mls/hr IV . Q10H [facility] Rx#:[id number] cefTRIAXone 2 gm In 50 Sodium Chloride 0.9% 50 ml @ 100 mls/hr IVPB Q24H [facility] Rx#:[id number] Intake, IV Titration 688.930 312.353 250.031 Amount Norepinephrine 32 mg In 9.557 158.520 Sodium Chloride 0.9% 218 ml @ 0.03 MCG/KG/MIN 1. 977 mls/hr IV .Q24H [facility] Rx#:[id number] Norepinephrine 4 mg In 688.930 282.126 Sodium Chloride 0.9% 250 ml @ 0.03 MCG/KG/MIN 16. 072 mls/hr IV .[id number] [facility] Rx#:[id number] Vasopressin 60 unit In 36.108 Sodium Chloride 0.9% 150 ml @ 0.03 UNITS/MIN 4.59 mls/hr IV .Q24H [facility] Rx#: [id number] propofoL 1,000 mg In 20.67 55.403 Empty Bag 1 bag @ 15 MCG/ KG/MIN 12.655 mls/hr IV . [id number] [facility] Rx#:[id number] Oral 15 Tube Feeding 0 Blood Product 593 310 Rc As-1 Unit 0 310 [id number] Rc As-1 Unit 310 [id number] Rc Pheresis As-3 Unit 283 [id number] Albumin 50 Albumin Human 25% 50 ml 50 In Empty Bag 1 bag @ 50 mls/hr IVPB ONCE ONE Rx#: [id number] Other 0 Output: Urine 375 265 85 Other: Voiding Method Indwelling Catheter Indwelling Catheter Indwelling Catheter # Bowel Movements 1 ABP, PAP, CO, CI - Last Documented Arterial Blood Pressure 61/44 - Exam No acute distress, sedated, with an orally placed endotracheal tube, and NG tube. HEENT examination is grossly unremarkable. Neck supple. Full range of motion. No adenopathy thyromegaly or neck vein distention. Cardiovascular examination reveals regular rhythm rate. S1-S2 normal. No S3 or S4. No discernible murmur noted. Heart sounds are distant. Heart rate 130 bpm. Lungs reveal coarse bilateral rhonchi. Breast sounds equal. Saturations 96%. No crackles. Abdomen soft, without bowel sounds. No masses. Extremities are warm, without cyanosis, clubbing, or edema. Skin is without rash or lesion. Neurologic examination cannot be currently assessed. - Labs CBC & Chem 7: 11/13/23 08:47 11/13/23 05:42 Labs: Abnormal Lab Results - Last 24 Hours (Table) 11/12/23 11/12/23 11/13/23 Range/Units 11:12 11:12 02:12 WBC 14.7 H (3.8-10.6) k/uL RBC 2.49 L (4.30-5.90) m/uL Hgb 9.1 L (13.0-17.5) gm/dL Hct 27.8 L (39.0-53.0) % MCV 111.7 H D (80.0-100.0) fL MCH 36.7 H (25.0-35.0) pg RDW (11.5-15.5) % Plt Count 124 L D (150-450) k/uL Neutrophils # (Manual) (1.3-7.7) k/uL Macrocytosis Marked A PT 22.7 H 28.9 H (10.0-12.5) sec INR 2.3 H 2.9 H (<1.2) ABG pH (7.35-7.45) ABG pCO2 (35-45) mmHg ABG pO2 (83-108) mmHg ABG HCO3 (21-25) mmol/L ABG Total CO2 (19-24) mmol/L ABG O2 Saturation (94-97) % Sodium (137-145) mmol/L Potassium (3.5-5.1) mmol/L Carbon Dioxide (22-30) mmol/L BUN (9-20) mg/dL Creatinine (0.66-1.25) mg/dL Glucose (74-99) mg/dL POC Glucose (mg/dL) (70-110) mg/dL Calcium (8.4-10.2) mg/dL Total Bilirubin (0.2-1.3) mg/dL AST (17-59) U/L ALT (4-49) U/L Total Protein (6.3-8.2) g/dL Albumin (3.5-5.0) g/dL Crossmatch 11/13/23 11/13/23 11/13/23 Range/Units 02:12 02:12 02:58 WBC 15.7 H (3.8-10.6) k/uL RBC 1.93 L (4.30-5.90) m/uL Hgb 7.4 L D (13.0-17.5) gm/dL Hct 22.5 L (39.0-53.0) % MCV 116.7 H D (80.0-100.0) fL MCH 38.5 H (25.0-35.0) pg RDW (11.5-15.5) % Plt Count 85 L (150-450) k/uL Neutrophils # (Manual) 12.00 H (1.3-7.7) k/uL Macrocytosis Marked A PT (10.0-12.5) sec INR (<1.2) ABG pH 7.16 L* (7.35-7.45) ABG pCO2 25 L (35-45) mmHg ABG pO2 (83-108) mmHg ABG HCO3 9 L* (21-25) mmol/L ABG Total CO2 10 L (19-24) mmol/L ABG O2 Saturation (94-97) % Sodium 127 L (137-145) mmol/L Potassium 6.1 H* (3.5-5.1) mmol/L Carbon Dioxide 8 L* (22-30) mmol/L BUN 43 H (9-20) mg/dL Creatinine 2.73 H (0.66-1.25) mg/dL Glucose (74-99) mg/dL POC Glucose (mg/dL) (70-110) mg/dL Calcium 7.4 L (8.4-10.2) mg/dL Total Bilirubin 15.8 H* (0.2-1.3) mg/dL AST 141 H (17-59) U/L ALT 70 H (4-49) U/L Total Protein 4.6 L (6.3-8.2) g/dL Albumin 1.6 L (3.5-5.0) g/dL Crossmatch 11/13/23 11/13/23 11/13/23 Range/Units 03:32 03:54 04:00 WBC (3.8-10.6) k/uL RBC (4.30-5.90) m/uL Hgb (13.0-17.5) gm/dL Hct (39.0-53.0) % MCV (80.0-100.0) fL MCH (25.0-35.0) pg RDW (11.5-15.5) % Plt Count (150-450) k/uL Neutrophils # (Manual) (1.3-7.7) k/uL Macrocytosis PT (10.0-12.5) sec INR (<1.2) ABG pH 7.12 L* (7.35-7.45) ABG pCO2 (35-45) mmHg ABG pO2 164 H (83-108) mmHg ABG HCO3 12 L (21-25) mmol/L ABG Total CO2 13 L (19-24) mmol/L ABG O2 Saturation 99.0 H (94-97) % Sodium (137-145) mmol/L Potassium (3.5-5.1) mmol/L Carbon Dioxide (22-30) mmol/L BUN (9-20) mg/dL Creatinine (0.66-1.25) mg/dL Glucose (74-99) mg/dL POC Glucose (mg/dL) 170 H (70-110) mg/dL Calcium (8.4-10.2) mg/dL Total Bilirubin (0.2-1.3) mg/dL AST (17-59) U/L ALT (4-49) U/L Total Protein (6.3-8.2) g/dL Albumin (3.5-5.0) g/dL Crossmatch See Detail 11/13/23 11/13/23 11/13/23 Range/Units 05:42 05:54 08:47 WBC 18.4 H (3.8-10.6) k/uL RBC 2.86 L (4.30-5.90) m/uL Hgb 10.4 L D (13.0-17.5) gm/dL Hct 31.6 L (39.0-53.0) % MCV 110.5 H D (80.0-100.0) fL MCH 36.3 H (25.0-35.0) pg RDW 17.6 H (11.5-15.5) % Plt Count 106 L (150-450) k/uL Neutrophils # (Manual) (1.3-7.7) k/uL Macrocytosis Marked A PT (10.0-12.5) sec INR (<1.2) ABG pH 7.14 L* (7.35-7.45) ABG pCO2 33 L (35-45) mmHg ABG pO2 (83-108) mmHg ABG HCO3 11 L (21-25) mmol/L ABG Total CO2 12 L (19-24) mmol/L ABG O2 Saturation (94-97) % Sodium 130 L (137-145) mmol/L Potassium 5.9 H (3.5-5.1) mmol/L Carbon Dioxide 11 L (22-30) mmol/L BUN 41 H (9-20) mg/dL Creatinine 2.63 H (0.66-1.25) mg/dL Glucose 130 H (74-99) mg/dL POC Glucose (mg/dL) (70-110) mg/dL Calcium 7.2 L (8.4-10.2) mg/dL Total Bilirubin (0.2-1.3) mg/dL AST (17-59) U/L ALT (4-49) U/L Total Protein (6.3-8.2) g/dL Albumin (3.5-5.0) g/dL Crossmatch 11/13/23 Range/Units 08:50 WBC (3.8-10.6) k/uL RBC (4.30-5.90) m/uL Hgb (13.0-17.5) gm/dL Hct (39.0-53.0) % MCV (80.0-100.0) fL MCH (25.0-35.0) pg RDW (11.5-15.5) % Plt Count (150-450) k/uL Neutrophils # (Manual) (1.3-7.7) k/uL Macrocytosis PT (10.0-12.5) sec INR (<1.2) ABG pH (7.35-7.45) ABG pCO2 (35-45) mmHg ABG pO2 (83-108) mmHg ABG HCO3 (21-25) mmol/L ABG Total CO2 (19-24) mmol/L ABG O2 Saturation (94-97) % Sodium (137-145) mmol/L Potassium (3.5-5.1) mmol/L Carbon Dioxide (22-30) mmol/L BUN (9-20) mg/dL Creatinine (0.66-1.25) mg/dL Glucose (74-99) mg/dL POC Glucose (mg/dL) 155 H (70-110) mg/dL Calcium (8.4-10.2) mg/dL Total Bilirubin (0.2-1.3) mg/dL AST (17-59) U/L ALT (4-49) U/L Total Protein (6.3-8.2) g/dL Albumin (3.5-5.0) g/dL Crossmatch Assessment and Plan Assessment: Acute hypoxemic respiratory failure, currently on 5 L/m nasal cannula, likely secondary to gross ascites and bilateral pleural effusions small left and trace on the right, likely hepatic hydrothorax. Chest x-ray demonstrates reduced lung volumes, a left pleural effusion, and likely atelectasis of the left lung base. Infectious infiltrate felt to be less likely. Status post intubation, and mechanical ventilation, 11/13/2023, for respiratory failure, and acute upper GI bleed. Hypotension and shock, refractory to fluid resuscitation, transferred to the intensive care unit for vasopressor support. Leukocytosis Metabolic anion gap acidosis Dehydration and intravascular volume depletion Acute alcoholic liver disease and ascites Hyperbilirubinemia Cholelithiasis, without evidence of cholecystitis Thrombocytopenia and anemia, secondary to alcoholism and alcoholic liver disease Coagulopathy Hypoalbuminemia Acute kidney injury, secondary to hepatorenal syndrome Hyponatremia, secondary to above History of alcoholism, last drink reportedly over 3 weeks ago History of polysubstance abuse History of hypertension History of hyperlipidemia History of incarceration Plan: Plan dated 11/13/2023. The patient was intubated, and mechanically ventilated, overnight, for respiratory failure, and acute upper GI bleed, likely from esophageal varices. The patient remains on a sodium bicarbonate drip, maximal doses of norepinephrine and vasopressin, and propofol for sedation. An arterial line was placed for blood pressure monitoring. The patient was made DO NOT RESUSCITATE by the patient's family. They are considering comfort care. The patient did receive 3 units of packed red blood cells. Labs, x-rays, medications are reviewed. The patient overall prognosis remains very poor. I've had a long con versation with the mother and stepfather this morning. They understand the gravity of the situation. The patient is profoundly acidotic. Prognosis is extremely poor, and I don't expect the patient to survive this illness. Time with Patient: Greater than 30
[2023-11-13 11:02] VITALS: PULSE 88; RESP 3
--- NOTE | 2023-11-13 16:43 | P.DS ---
Providers Date of admission: 11/11/23 05:41 Expected date of discharge: 11/13/23 Attending physician: Angel Jaimes Consults: 11/11/23 14:54 Consult Physician Urgent Consulting Provider: Sunil Gutierrez Consult Reason/Comments: dialysis, worsening kidney function Do you want consulting provider notified?: Yes 11/12/23 00:18 Consult Physician Stat Consulting Provider: Jae Le Consult Reason/Comments: hypotensive Do you want consulting provider notified?: Already Contacted 11/12/23 08:28 Consult Physician Urgent Consulting Provider: Juan Naranjo Consult Reason/Comments: gallbladder wall thickening Do you want consulting provider notified?: Yes Primary care physician: Angel Jaimes - Discharge Diagnosis(es) (1) Acute renal failure Status: Acute (2) Dehydration Status: Acute (3) Weakness Status: Acute (4) Acute alcoholic hepatitis Status: Acute (5) Alcohol abuse Status: Acute (6) Cholelithiases Status: Acute (7) Cirrhosis Status: Acute (8) Acute GI bleeding Status: Acute (9) Alcohol use disorder Status: Acute Priority: Medium (10) Coagulopathy Status: Acute Hospital Course: patient was admitted via the emergency roomon 11/11/2023 Alcoholic encephalopathy, hyperbilirubinemia, elevated liver enzymes renal failure Attempt was made to transfer patient to [facility] hospital they agreed were waiting for a bed Patient to return for the worst last night became obtunded and had to be intubated significant GI bleed Patient was given 3 units packed red cells Family arrived in the morning Dr. Russo long-term prognosis which was poor determination was made to make patient a comfort care only with a terminal wean morphine drip was initiated patient subsequently Assessment: patient Patient Condition at Discharge: Fair Plan - Discharge Summary Discharge Rx Participant: No New Discharge Prescriptions: No Action Gabapentin [Neurontin] 300 mg PO TID lisinopriL [Zestril] 10 mg PO DAILY Lactulose [Cephulac] 30 gm PO DAILY 30 Days #900 gm Midodrine [ProAmatine] 10 mg PO AC-TID #90 tab Thiamine [Vitamin B-1] 100 mg PO DAILY #30 tab Metoprolol Succinate (ER) [Toprol XL] 50 mg PO DAILY oxyCODONE HCL [OxyIR] 5 mg PO Q6HR PRN tab PRN Reason: Pain Discharge Medication List Gabapentin [Neurontin] 300 mg PO TID 04/28/20 [History] lisinopriL [Zestril] 10 mg PO DAILY 08/31/21 [History] Metoprolol Succinate (ER) [Toprol XL] 50 mg PO DAILY 10/24/23 [History] Lactulose [Cephulac] 30 gm PO DAILY 30 Days #900 gm 10/28/23 [Rx] Midodrine [ProAmatine] 10 mg PO AC-TID #90 tab 10/28/23 [Rx] Thiamine [Vitamin B-1] 100 mg PO DAILY #30 tab 10/28/23 [Rx] oxyCODONE HCL [OxyIR] 5 mg PO Q6HR PRN tab 10/28/23 [Rx] Follow up Appointment(s)/Referral(s): Angel Jaimes Jr, [Primary Care Provider] - 1-2 days Discharge Disposition: - Preliminary Cause of Preliminary Cause of : alcoholic liver disease Pending Studies Pending Results: patient
== END 2023-11-13 12:10 | disposition expired | DRG 441 ==
LOC: EC 03:12 → 4SSUR 05:41 → 2SICU 11-12 00:19
PROVIDERS: ADMIT Family Medicine; ATTEND Family Medicine
PROC: 3E043XZ Introduction of Vasopressor into Central Vein, Percutaneous Approach (ICD-10-PCS; 2023-11-12)
PROC: 5A1935Z Respiratory Ventilation, Less than 24 Consecutive Hours (ICD-10-PCS; principal; 2023-11-13)
PROC: 0BH17EZ Insertion of Endotracheal Airway into Trachea, Via Natural or Artificial Opening (ICD-10-PCS; principal; 2023-11-13)
PROC: 03HY32Z Insertion of Monitoring Device into Upper Artery, Percutaneous Approach (ICD-10-PCS; 2023-11-13)
PROC: 4A133J1 Monitoring of Arterial Pulse, Peripheral, Percutaneous Approach (ICD-10-PCS; 2023-11-13)
PROC: 4A133B1 Monitoring of Arterial Pressure, Peripheral, Percutaneous Approach (ICD-10-PCS; 2023-11-13)
PROC: 30233N1 Transfusion of Nonautologous Red Blood Cells into Peripheral Vein, Percutaneous Approach (ICD-10-PCS; 2023-11-13)
DX: K76.7 Hepatorenal syndrome (principal); J96.01 Acute respiratory failure with hypoxia; D62 Acute posthemorrhagic anemia; D68.9 Coagulation defect, unspecified; E87.1 Hypo-osmolality and hyponatremia; E87.20 Acidosis, unspecified; K92.2 Gastrointestinal hemorrhage, unspecified; J98.11 Atelectasis; N17.9 Acute kidney failure, unspecified; R57.1 Hypovolemic shock; K72.90 Hepatic failure, unspecified without coma; I10 Essential (primary) hypertension; K70.31 Alcoholic cirrhosis of liver with ascites; E88.09 Other disorders of plasma-protein metabolism, not elsewhere classified; G31.2 Degeneration of nervous system due to alcohol; K70.11 Alcoholic hepatitis with ascites; F10.20 Alcohol dependence, uncomplicated; K80.20 Calculus of gallbladder without cholecystitis without obstruction; Z66 Do not resuscitate; Z51.5 Encounter for palliative care; D69.59 Other secondary thrombocytopenia; E78.5 Hyperlipidemia, unspecified; E86.0 Dehydration; F17.210 Nicotine dependence, cigarettes, uncomplicated; F41.9 Anxiety disorder, unspecified; Z79.899 Other long term (current) drug therapy; Z11.52 Encounter for screening for COVID-19; Z28.311 Partially vaccinated for COVID-19
CPT/HCPCS: 36415; 36600; 71045; 74176; 76705; 80048; 80053; 80320; 81001; 82140; 82150; 82805; 83605; 83690; 83735; 84100; 84484; 85025; 85027; 85610; 85730; 86850; 86900; 86901; 86920; 87040; 87070; 87205; 87635; 93005; 94002; 94640; 96361; 96374; 96375; 96376; 99291